=== PATIENT | female | born 1995 | race Caucasian/White ===

== ENCOUNTER 2019-06-27 06:20 | Emergency (ER) | payer OTHER, SELFPAY ==
[2019-06-27 06:22] VITALS: BP 126/54; PULSE 74; RESP 16; TEMP 37; O2SAT 100; BMI 22.6
--- NOTE | 2019-06-27 06:38 | ED.DCSUM_ITS ---
History of Present Illness Chief Complaint: Dental Informant: Patient Onset: Weeks - 1 Context: Gradual Onset Timing: Continuous Quality: ache Location: left maxillary Current Severity: Moderate Maximum Severity: Moderate Worsened by: eating Relieved by: - - tylenol, partially Associated Symptoms: - - No fevers or swelling. Narrative: Patient currently in early first trimester . She is having no nausea, vomiting, abdominal pain, or urinary symptoms but states about a week ago, a tooth fell apart while eating, and now is hurting her worse. Past Medical History - Allergies and Home Meds Allergies/Adverse Reactions: Allergies No Known Allergies Allergy (Verified 08/09/16 22:52) Primary Care Physician: Care Physician,No Primary [Primary Care Provider] - Past Medical History: None Lives: With Family Smoking Status: Never smoker Review of Systems General: Denies: Chills, Fever, Sweats ENT: Reports: - - Dental pain. Denies: Rhinorrhea, Sore throat Respiratory: Denies: Dyspnea, Cough Gastrointestinal: Denies: Abdominal pain, Nausea, Vomiting Physical Exam Vital Signs/Narrative: Vital Signs Temp Pulse Resp BP Pulse Ox 06/27/19 06:22 98.6 F 74 16 126/54 H 100 Inital Vital Signs reviewed: Yes General: Well nourished, Well developed, - - Well-appearing, NAD Head: Normocephalic, Atraumatic ENT: Moist mucous membranes, No rhinorrhea Mouth/Throat: Normal oral mucosa, No focal abscess, Normal posterior oropharynx, No sublingual edema, Focal dental decay - 13, Tenderness on tooth percussion - 13.. Negative for: Dental abscess, Trismus Neck: Supple, No lymphadenopathy, Nontender Respiratory: No distress Skin: Normal color, No rash Neurological: Alert, Oriented x3, Cranial nerves II-XII grossly intact, Normal Strength, Normal Sensation, Normal Gait Psychological: Normal affect, Normal Mood Diagnostic/Tx/Re-eval - Medical Decision Making Dental Procedures: Cavet temporary sealant placed - After topical benzocaine 20% There is focal decay that is likely into the dentin, unsure if there is pulp exposed as there is no blood/bleeding. The majority of the tooth is intact. The rest of the teeth look good. Placed temporary filling in the area for her. She declined Tylenol after that, which is what I recommend given that she is . She is given a dental clinic referral which they also requested, and a prescription for penicillin since she is tender up above the affected tooth although I do not feel a palpable abscess. This should prevent dental infection if there is one, from becoming worse. ED Disposition - Plan for ED Patient: Disposition: Home or Assisted Living Diagnosis: Dental decay, Odontalgia Instructions: Dental Pain Prescriptions: Amoxicillin 875 mg PO BID #20 tab Transmission Status: Pending to [id number] Referrals: Dentist,Your [STAFF PHYSICIAN] - (see dental clinics list)
--- NOTE | 2019-06-27 10:01 | ED.RN ---
Pt returned call to inquire about consent for tooth extraction to dentist due to pt being . Dr Valiente verbalized extraction should not be a problem. Pt will return call if extraction is necessary.
--- NOTE | 2019-06-27 12:16 | ED.RN ---
[facility] [place] [facility] permission to for dentist to treat pt due to . Addendum was added to chart stating no restrictions are necessary for treatment and giving permission for exam, x-ray, extraction as deemed necessary by dentist. Dr Redmond signed addendum. Note was added to fax sheet advising pt was offered Tylenol for pain due to .
== END 2019-06-27 07:02 | disposition home or self-care (01) ==
PROVIDERS: Emergency Provider Emergency Medicine
DX: O99.611 Diseases of the digestive system complicating pregnancy, first trimester (principal); K08.89 Other specified disorders of teeth and supporting structures; K02.9 Dental caries, unspecified; S02.5XXA Fracture of tooth (traumatic), initial encounter for closed fracture; X58.XXXA Exposure to other specified factors, initial encounter; Y93.9 Activity, unspecified; Y92.9 Unspecified place or not applicable; Z3A.00 Weeks of gestation of pregnancy not specified
CPT/HCPCS: 99282

== ENCOUNTER → 2019-07-17 17:31 | Outpatient (CLI) | payer OTHER, SELFPAY ==
[2019-06-27 06:22] VITALS: BMI 22.6
== END ==
PROVIDERS: Visit Provider Obstetrics & Gynecology
DX: Z12.4 Encounter for screening for malignant neoplasm of cervix (principal); Z11.3 Encounter for screening for infections with a predominantly sexual mode of transmission

== ENCOUNTER → 2019-07-24 15:07 | Outpatient (CLI) | payer OTHER, SELFPAY ==
[2019-06-27 06:22] VITALS: BMI 22.6
[2019-07-24 15:45] LABS: Absolute Lymphocyte Count 1.57 X10^3/uL (0.83-4.51); Absolute Neutrophil Count 4.9 X10^3/uL (2.0-7.7); Basophil# 0.02 X10^3/uL; Basophil% 0.3 % (0-1); Eosinophil# 0.04 X10^3/uL; Eosinophils% 0.6 % (0-5); Hematocrit 37.5 % (37-47); Hemoglobin 12.3 g/dL (12.0-15.0); Lymphocyte # 1.57 X10^3/ul (4.0); Lymphocyte % 22.8 % (19-41); Mean Corp Hgb Conc 32.8 g/dL (32-36); Mean Corpuscular Volume 85.2 fL (81-99); Mean Platelet Vol. 9.2 fl (6.2-12.0); Monocyte# 0.33 X10^3/uL; Monocyte% 4.8 % (0-10); NRBC Flagged by Analyzer 0 % (0-5); Neutrophil % 71.1 % (47-70); Platelet Count 239 K/mm3 (150-450); RBC Distribution Width CV 13.1 % (11.6-14.6); RBC Distribution Width SD 40.6 fl (35.1-43.9); White Blood Count 6.9 K/mm3 (4.4-11.0)
[2019-07-24 15:50] LABS: Color, Urine Yellow (Yellow); Glucose, Dipstick Normal (Normal); Ketone-Dipstick 5 mg/dl (Negative); Leukocyte Esterase-Dipstick Negative /ul (Negative); Nitrite-Dipstick Negative (Negative); Occult Blood-Urine Negative /ul (Negative); Protein-Dipstick Negative (Negative); Specific Gravity, Urine 1.015 (1.002-1.030); Urine Bilirubin Dipstick Negative (Negative); Urine Clarity Clear (Clear); Urine Urobilinogen Normal (Normal); Urine pH 6.5 (5.0 - 8.0)
[2019-07-24 16:08] LABS: Amphetamine Urine VISTA NEGATIVE (<1000 ng/mL); Barbiturate Urine VISTA NEGATIVE (< 200 ng/mL); Benzodiazepine Urine VISTA NEGATIVE (< 200 ng/mL); Cocaine Urine VISTA NEGATIVE (< 300 ng/mL); Ecstacy Urine VISTA NEGATIVE (< 500 ng/mL); Methadone Urine VISTA NEGATIVE (< 300 ng/mL); PCP Urine VISTA NEGATIVE (< 25 ng/mL); THC Urine VISTA NEGATIVE (< 50 ng/mL); Vista UDS pH Range 6
[2019-07-24 16:31] LABS: Thyroid Stim Hormone (TSH) 1.34 uIU/mL (0.358-3.74)
[2019-07-27 11:34] LABS: HIV - WCH Non-Reactive (Nonreactive); Hepatitis B Surface Antigen Non-Reactive (Nonreactive); Hepatitis C Antibody Non-Reactive (Nonreactive); Rubella IgG 207.4 IU/mL; Vitamin D,25 Hydroxy 19.3 ng/mL (29.95-100.01)
[2019-07-30 03:15] LABS: Prenatal RPR NONREACTIVE (NONREACTIVE)
== END ==
PROVIDERS: Obstetrics & Gynecology; Visit Provider Advanced Practice Midwife
DX: Z34.81 Encounter for supervision of other normal pregnancy, first trimester (principal)
CPT/HCPCS: 36415; 80307; 81002; 82306; 84443; 85025; 86703; 86762; 86803; 87340

== ENCOUNTER → 2019-12-04 14:51 | Outpatient (CLI) | payer OTHER, SELFPAY ==
[2019-12-04 17:25] LABS: Hematocrit 29.8 % (37-47); Hemoglobin 9.7 g/dL (12.0-15.0); Mean Corp Hgb Conc 32.6 g/dL (32-36); Mean Corpuscular Volume 89.2 fL (81-99); Mean Platelet Vol. 10.7 fl (6.2-12.0); Platelet Count 216 K/mm3 (150-450); RBC Distribution Width CV 12.4 % (11.6-14.6); RBC Distribution Width SD 40.7 fl (35.1-43.9); Red Blood Count 3.34 M/mm3 (4.2-5.4); White Blood Count 5.8 K/mm3 (4.4-11.0)
[2019-12-04 17:32] LABS: Glucose Challenge Gest 1H 50g 171 mg/dL (70-140)
[2019-12-04 17:39] LABS: Vitamin D,25 Hydroxy 20.9 ng/mL
== END ==
PROVIDERS: Visit Provider Obstetrics & Gynecology
DX: O26.893 Other specified pregnancy related conditions, third trimester (principal); E55.9 Vitamin D deficiency, unspecified; Z3A.00 Weeks of gestation of pregnancy not specified
CPT/HCPCS: 36415; 82306; 82950; 85027

== ENCOUNTER → 2019-12-24 06:54 | Outpatient (CLI) | payer OTHER, SELFPAY ==
[2019-12-24 07:50] LABS: Glucose GTT-Gestation. Fasting 82 mg/dL (<105)
[2019-12-24 08:38] LABS: Glucose GTT-Gestational 1 Hr 145 mg/dL (<190)
[2019-12-24 10:11] LABS: Glucose GTT-Gestational 2 Hr 102 mg/dL (<165)
[2019-12-24 11:19] LABS: Glucose GTT-Gestational 3 Hr 89 L (<145)
== END ==
PROVIDERS: Referring Provider Obstetrics & Gynecology; Visit Provider Obstetrics & Gynecology
DX: R73.09 Other abnormal glucose (principal)
CPT/HCPCS: 36415; 82951; 82952

== ENCOUNTER → 2020-01-27 10:31 | Outpatient (CLI) | payer OTHER, SELFPAY | PROVIDERS: Visit Provider Obstetrics & Gynecology | DX: Z36.85 Encounter for antenatal screening for Streptococcus B (principal) | CPT/HCPCS: 87081 ==

== ENCOUNTER 2020-02-15 03:40 | Inpatient (IN) | payer OTHER, SELFPAY ==
[2020-02-15] VITALS (17 sets, daily range): BP systolic 98–132; BP diastolic 53–86; PULSE 56–96; RESP 16–17; TEMP 36.6–37.1; O2SAT 100; BMI 23.2
[2020-02-15] MEDS: Lactated Ringers 1,000 ML 999 ML IV (03:50)
[2020-02-15 04:12] LABS: Absolute Lymphocyte Count 3.22 X10^3/uL (0.83-4.51); Absolute Neutrophil Count 3.6 X10^3/uL (2.0-7.7); Basophil# 0.03 X10^3/uL; Basophil% 0.4 % (0-1); Eosinophil# 0.01 X10^3/uL; Eosinophils% 0.1 % (0-5); Hematocrit 34.6 % (37-47); Hemoglobin 11.2 g/dL (12.0-15.0); Lymphocyte # 3.22 X10^3/ul (4.0); Lymphocyte % 44.1 % (19-41); Mean Corp Hgb Conc 32.4 g/dL (32-36); Mean Corpuscular Hgb 27.5 pg (27.0-32.0); Mean Corpuscular Volume 84.8 fL (81-99); Mean Platelet Vol. 11.8 fl (6.2-12.0); Monocyte# 0.43 X10^3/uL; Monocyte% 5.9 % (0-10); NRBC Flagged by Analyzer 0 % (0-5); Neutrophil # 3.58 X10^3/uL (2.7-7.7); Neutrophil % 49.1 % (47-70); Platelet Count 220 K/mm3 (150-450); RBC Distribution Width CV 12.7 % (11.6-14.6); RBC Distribution Width SD 38.5 fl (35.1-43.9); Red Blood Count 4.08 M/mm3 (4.2-5.4); White Blood Count 7.3 K/mm3 (4.4-11.0)
[2020-02-15] MEDS: Oxytocin 30 units/NS 500 ml 30 UNITS/500 ML IV.SOLN 334 UNITS IV (04:41)
[2020-02-15] MEDS: Methylergonovine 0.2 MG/ML Ampul IM (04:45)
--- NOTE | 2020-02-15 05:02 | HP.PCM_ITS ---
- Problem List (1) 39 weeks gestation of Status: Acute History Date of Admission: 02/15/20 Final ANNE MARIE: 02/22/20 Final ANNE MARIE Source: US <20 weeks Gestational age: 39 Weeks and 0 Days History of this : This is a 24 year-old, G [2], P [1], at 39 weeks gestational age. Allergies No Known Allergies Allergy (Verified 02/15/20 03:57) Home Medications: Home Medications Vits [Prenatabs FA] 1 tablet PO DAILY 08/09/16 Smoking Status: Never smoker Number of Fetus(es): 1 NST - FHR Rate Baby A Baseline: 130 Variability:: Moderate Accelerations:: 15 x 15 Decelerations:: None NST Reactive:: Yes FHR Category:: Category I Uterine Activity:: 2-5m History Past Pregnancies: PRIOR DELIVERY HISTORY DEL DATE GEST LAB WT LB WT OZ TYPE ANES LABOR TX 10 Aug 17 38 16 6 7 Vacuu Epidural No Labs: Labs Mom's Problem List Problem Status Onset Code 39 weeks gestation of Acute Z3A.39 Mom's Labs & Results 02/15/20 02/15/20 03:50 03:50 WBC 7.3 RBC 4.08 L Hgb 11.2 L Hct 34.6 L MCV 84.8 MCH 27.5 MCHC 32.4 RDW Std Deviation 38.5 RDW Coeff of Jose G 12.7 Plt Count 220 MPV 11.8 Immature Gran % (Auto) 0.400 Neut % (Auto) 49.1 Lymph % (Auto) 44.1 H [place] % (Auto) 5.9 Eos % (Auto) 0.1 Baso % (Auto) 0.4 Absolute Neuts (auto) 3.6 Absolute Lymphs (auto) 3.22 Nucleated RBC % 0 Blood Type O POSITIVE Antibody Screen NEGATIVE Course Did the patient receive Yes care? Labs Blood Type: O RH: POSITIVE RPR/VDRL/Syphilis Nonreactive Rubella status Immune HbSAg Negative Date Done: 07/24/19 Chlamydia Negative Gonorrhea Negative HIV/AIDS Non-Reactive Group B Strep: Negative Current Obstetrical History Gestational Diabetes No Incompetent Cervix No Infertility No IUGR No Macrosomia No Hypertension/Pre-eclampsia No Placenta Previa/Abruption No PTL/PROM No Uterine anomaly No Oligohydramnios No Polyhydramnios No Multiple gestation No Past Medical History Asthma No Diabetes No Hypertension No Heart disease No Mitral valve prolapse No Neurologic/Seizure disorder/ No Migraines Kidney disease No Liver disease No Varicosities No Clotting disorders/Hx of DVT No Thyroid Dysfunction No Other medical diseases No Psychiatric disorders No Major trauma No Abnormal PAP smear No Sleep apnea No Mammogram in the last 2 years No Social History Marital Status: SINGLE Alleged father Beau Greco Hx Smoking No Smoking Status Never smoker Expected Infant Delivery Method: Spontaneous Vaginal Number of Visits: 12 Review of Systems Constitutional: Denies: Chills, Fever, Weight Change HEENT: Denies: Head Aches, Sinus Congestion, Sinus Drainage Cardiovascular: Denies: Chest Pain, Palpitations Respiratory: Denies: Cough, Shortness of breath at rest, Sputum production Gastrointestinal: Denies: Abdominal Pain, Nausea, Vomiting Genitourinary: Denies: Dysuria Musculoskeletal: Denies: Joint Pain, Joint Tenderness Skin: Denies: Rash, Wounds Neurological: Denies: Numbness, Tingling, Focal weakness Psychiatric: Denies: Anxiety, Depression, Homicidal Ideations, Suicidal Ideations Hematologic/ Lymphatic: Denies: Easy Bruising, Easy Bleeding Physical Exam Vitals: Vital Signs Temp Pulse BP Pulse Ox 98.3 F 76 106/75 100 02/15/20 04:59 02/15/20 05:00 02/15/20 04:59 02/15/20 05:00 General: Alert, Oriented x3, No apparent distress HEENT: Atraumatic, Normocephalic. Negative for: Thyromegaly, Lymphadenopathy Cardiovascular: Regular rate, Regular Rhythm Lungs: Clear to auscultation Abdomen: Bowel Sounds Present, Gravid Neurological: Deep Tendon Reflexes 2+/4 and Symmetrical, Neuro grossly intact PALM GATHERER: Normal external genitalia. Negative for: Vulvar lesions Estimated gestational size: Appropriate for gestational size Presentation: Cephalic Cervix Dilation (cm): 8 Station: -2 Effacement (%): 90 Assessment/Plan All Active Problems 39 weeks gestation of (Acute) 38 weeks gestation of (Acute) Oligohydramnios (Acute) A/P: This is a 24 year-old, G [2], P [1], at 39 weeks gestational age. SROM this AM around 0300, reports clear UC Q2-5m NST Category I SVE /-2 with urge to push Admit in active labor
--- NOTE | 2020-02-15 05:08 | PCM.OPRPT ---
Problem List (1) 39 weeks gestation of Status: Acute Vaginal Delivery Maternal Presentation: Active Labor Amniotic Membrane Rupture Type: Spontaneous at home Amniotic Fluid Description: Clear Final ANNE MARIE: 02/22/20 Final ANNE MARIE Source: US <20 weeks Gestational age: 39 Weeks and 0 Days Date of Procedure: 02/15/20 Pre-Operative Diagnosis: Labor Post-Operative Diagnosis: S/P Surgery/ Procedure Performed: Spontaneous Vaginal Delivery Type of Anesthesia: None Description of Procedure: Patient was FD at +3 station with spontaneous urge to push. She pushed to deliver head in direct OP followed spontaneously by body. The male infant was placed on the maternal abdomen and further attended to by nursery personnel. The cord was doubly clamped and cut by FOB under CNM supervision at approximately 4 minutes of life. Left labial skid plaza noted as well as a mild perineal skid hetal, good hemostasis noted and no repairs needed. With gentle traction the placenta delivered. IV Pitocin started per protocol. With a continual trickle of blood, manual expression of placental fragments and clots removed from uterine cavity. IM Methergine given in the left thigh. Placenta appears to have a three vessel cord. Apgars 9/10. EBL 400. Sponge and needle counts correct x 2. Precipitous delivery. Attending MD: Dr. Sarah Plummer Presentation: ROP - direct OP Placental Delivery Description: Spontaneous, Manual Removal Placenta Disposition: [facility] Cord Vessel Description: 3 Vessels Cord Entanglement: - - around shoulders/body Estimated Blood Loss: 400 A gender: Male (1 minute): 9 (5 minute): 10 Episiotomy Description: None Laceration: None Medications given after delivery: IV Pitocin, IM Methergin
--- NOTE | 2020-02-15 05:14 | DCINST_ITS ---
Discharge Diet: No Restrictions Discharge Activity: Return to Normal Activity, May not drive while taking narcotic pain medications., May Shower May resume sexual activity in: 4-6 weeks Additional Activity Instructions:: Nothing in the vagina for 4-6 weeks. You may return to work/school in 6 weeks. Call your doctor if your incision/area has: Continuous Slow Oozing, Sudden Increased Bleeding, Increased Pain/ Swelling, Increased Redness, Foul Smelling Discharge Additional Instructions: If you experience any of the following, contact your healthcare provider. * Bleeding that soaks a pad every hour for 2 hours * Fever 100.4 or higher * Unrelieved incision or abdominal pain * Swelling, redness, discharge or bleeding from your incision or episiotomy site * Your incision begins to separate * Problems urinating (including inability to urinate or burning while urinating). * Visual changes * Severe headache * Flu-like symptoms * Pain or redness in one of both of your breasts * Pain, warmth, tenderness or swelling in your legs, especially the calf area * Frequent nausea and vomiting * Symptoms of depression or anxiety If you experience any of the following, call 911 or go to the nearest Emergency Room. * Chest pain * Problems breathing * Seizure activity * Partial or complete paralysis of a body part, slurred speech, weakness or drooping of the face, or a sudden inability to walk or hold your balance Allergies/Adverse Reactions: Allergies No Known Allergies Allergy (Verified 02/15/20 03:57) Medications to take at Discharge Vits [Prenatabs FA] 1 tablet PO DAILY 08/09/16 Please Follow Up With: Mago Ignacio MD When: Call to make an appointment with your doctor in 6 weeks. Primary Care Physician: Care Physician,No Primary [Primary Care Provider] - Test Results: Test results from this visit will be discussed in further detail at your follow- up appointment, if applicable.
--- NOTE | 2020-02-15 05:14 | PCM.DCVAG ---
Discharge Diet: No Restrictions Discharge Activity: Return to Normal Activity, May not drive while taking narcotic pain medications., May Shower May resume sexual activity in: 4-6 weeks Additional Activity Instructions:: Nothing in the vagina for 4-6 weeks. You may return to work/school in 6 weeks. Call your doctor if your incision/area has: Continuous Slow Oozing, Sudden Increased Bleeding, Increased Pain/ Swelling, Increased Redness, Foul Smelling Discharge Additional Instructions: If you experience any of the following, contact your healthcare provider. Bleeding that soaks a pad every hour for 2 hours Fever 100.4 or higher Unrelieved incision or abdominal pain Swelling, redness, discharge or bleeding from your incision or episiotomy site Your incision begins to separate Problems urinating (including inability to urinate or burning while urinating). Visual changes Severe headache Flu-like symptoms Pain or redness in one of both of your breasts Pain, warmth, tenderness or swelling in your legs, especially the calf area Frequent nausea and vomiting Symptoms of depression or anxiety If you experience any of the following, call 911 or go to the nearest Emergency Room. Chest pain Problems breathing Seizure activity Partial or complete paralysis of a body part, slurred speech, weakness or drooping of the face, or a sudden inability to walk or hold your balance Allergies/Adverse Reactions: Allergies No Known Allergies Allergy (Verified 02/15/20 03:57) Medications to take at Discharge Vits [Prenatabs FA] 1 tablet PO DAILY 08/09/16 Please Follow Up With: Mago Ignacio MD When: Call to make an appointment with your doctor in 6 weeks. Primary Care Physician: Care Physician,No Primary [Primary Care Provider] - Test Results: Test results from this visit will be discussed in further detail at your follow-up appointment, if applicable.
[2020-02-15] MEDS: oxyCODONE 5 MG Tablet PO ×3 (05:20→22:15)
[2020-02-15] MEDS: Ibuprofen 600 MG Tablet PO (18:08)
[2020-02-16] VITALS (7 sets, daily range): BP systolic 92–117; BP diastolic 60–78; PULSE 54–69; RESP 17–18; TEMP 36.2–36.8
[2020-02-16] MEDS: Ibuprofen 600 MG Tablet PO ×2 (00:31→06:13)
--- NOTE | 2020-02-16 07:04 | PCM.PN.OB ---
<Flora Dougherty - Last Filed: 02/16/20 08:34> Patient Problems: Active and Suspected Problems 39 weeks gestation of (Acute) Subjective: States feeling much better today. Denies pain or heavy bleeding. Bottom is a little sore, but doing well. well with male having a good latch. Has been ambulating in her room, tolerating a regular diet, urinating without difficulty and passing flatus. Would like to discharge home today after circumcision. Objective: VSS. Fundus is firm, midline, u/2. Lochia rubra moderate. - Physical Exam Vitals/I&O's: Vital Signs Temp Pulse Resp BP Pulse Ox 97.7 F L 54 L 17 96/69 100 02/16/20 04:30 02/16/20 04:30 02/16/20 04:30 02/16/20 04:30 02/15/20 05:00 Oxygen Delivery Method Room Air Weight: 55.792 kg Body Mass Index (BMI) 23.2 Intake and Output for Last 24 Hours 02/14/20 02/15/20 02/16/20 23:59 23:59 23:59 Intake Total 916.25 / 916.25 Output Total 700 / 700 Balance 216.25 / 216.25 General: Alert, Oriented x3, Cooperative HEENT: Atraumatic, PERRLA, EOMI, Normocephalic Neck: Supple, No JVD, Negative Carotid Bruits Lungs: Clear to auscultation, Normal air movement Cardiovascular: Regular rate, No murmurs Abdomen: Bowel Sounds Present, Soft, Non Tender Extremities: No edema, Capillary Refill Less than 3 Seconds Skin: No rashes, No breakdown Musculoskeletal: No Tenderness to Palpation of Joints or Extremities Neurological: Cranial nerves II-XII grossly intact Psych/Mental Status: Normal Affect, Appropriate Current Medications Acetaminophen (Tylenol) 1,000 mg PO Q8H PRN PRN PRN Reason: Pain Score 1-3/10 Bisacodyl (Dulcolax) 10 mg RECTAL UD PRN PRN Reason: If no BM Dibucaine (Dibucaine) 1 applic TOPICAL TID PRN PRN; Protocol PRN Reason: Discomfort Hydrocortisone (Hytone) 1 applic TOPICAL TID PRN PRN; Protocol PRN Reason: Discomfort Ibuprofen (Motrin) 600 mg PO Q6H PRN PRN PRN Reason: Pain Score 1-3/10 Last Admin: 02/16/20 06:13 Dose: 600 mg Documented by: Methylergonovine Maleate (Methergine) 0.2 mg IM X1 PRN PRN Reason: Excess bleeding/uterine atony Last Admin: 02/15/20 04:45 Dose: 0.2 mg Documented by: Ondansetron HCl (Zofran) 4 mg IV Q4H PRN PRN PRN Reason: Nausea Oxycodone HCl (Oxyir) 5 - 10 mg PO Q4H PRN PRN PRN Reason: Pain Score 4-10/10 Last Admin: 02/15/20 22:15 Dose: 5 mg Documented by: Senna/Docusate Sodium (Senokot-S, Carly-Colace) 1 - 2 tablet PO DAILY PRN PRN PRN Reason: Constipation Simethicone (Mylicon) 80 mg PO PCHS PRN PRN Reason: Indigestion/Stomach pain Sodium Chloride () 5 - 15 ml IV UD PRN PRN Reason: SALINE FLUSH Medical Necessity - Tobacco Use Smoking Status: Never smoker Assessment/Plan All Active Problems 39 weeks gestation of (Acute) 38 weeks gestation of (Acute) Oligohydramnios (Acute) A/P: S/P Day #1 mother Normal involution and lochia Dyad stable To follow up at [address] Urena Educated on signs of PPD and when to call To discharge home today <Kelsy Berg - Last Filed: 02/16/20 14:18> - Physical Exam Vitals/I&O's: Vital Signs Temp Pulse Resp BP Pulse Ox 97.9 F 69 18 92/60 100 02/16/20 09:43 02/16/20 09:43 02/16/20 09:43 02/16/20 09:43 02/15/20 05:00 Oxygen Delivery Method Room Air Weight: 55.792 kg Body Mass Index (BMI) 23.2 Intake and Output for Last 24 Hours 02/14/20 02/15/20 02/16/20 23:59 23:59 23:59 Intake Total 916.25 / 916.25 Output Total 700 / 700 Balance 216.25 / 216.25 Current Medications Acetaminophen (Tylenol) 1,000 mg PO Q8H PRN PRN PRN Reason: Pain Score 1-3/10 Bisacodyl (Dulcolax) 10 mg RECTAL UD PRN PRN Reason: If no BM Dibucaine (Dibucaine) 1 applic TOPICAL TID PRN PRN; Protocol PRN Reason: Discomfort Hydrocortisone (Hytone) 1 applic TOPICAL TID PRN PRN; Protocol PRN Reason: Discomfort Ibuprofen (Motrin) 600 mg PO Q6H PRN PRN PRN Reason: Pain Score 1-3/10 Last Admin: 02/16/20 06:13 Dose: 600 mg Documented by: Methylergonovine Maleate (Methergine) 0.2 mg IM X1 PRN PRN Reason: Excess bleeding/uterine atony Last Admin: 02/15/20 04:45 Dose: 0.2 mg Documented by: Ondansetron HCl (Zofran) 4 mg IV Q4H PRN PRN PRN Reason: Nausea Oxycodone HCl (Oxyir) 5 - 10 mg PO Q4H PRN PRN PRN Reason: Pain Score 4-10/10 Last Admin: 02/15/20 22:15 Dose: 5 mg Documented by: Senna/Docusate Sodium (Senokot-S, Carly-Colace) 1 - 2 tablet PO DAILY PRN PRN PRN Reason: Constipation Simethicone (Mylicon) 80 mg PO PCHS PRN PRN Reason: Indigestion/Stomach pain Sodium Chloride () 5 - 15 ml IV UD PRN PRN Reason: SALINE FLUSH Assessment/Plan PPD#1 s/p . Desires homegoing, stable. Follow up 6w.
== END 2020-02-16 14:45 | disposition home or self-care (01) | DRG 806 ==
PROVIDERS: Admitting Provider Obstetrics & Gynecology; Visit Provider Obstetrics & Gynecology
DX: O62.3 Precipitate labor (principal); O41.03X0 Oligohydramnios, third trimester, not applicable or unspecified; Z37.0 Single live birth; Z3A.39 39 weeks gestation of pregnancy
CPT/HCPCS: 59025; 59050; 85025; 86850; 86900; 86901; 99218; J7120; G0378

== ENCOUNTER 2021-06-13 16:50 | Emergency (ER) | payer OTHER, SELFPAY ==
[2021-06-13 16:51] VITALS: BP 137/94; PULSE 65; RESP 18; TEMP 36.3; O2SAT 100; BMI 19.5
--- NOTE | 2021-06-13 16:57 | ED.RN ---
PT REPORTS HE DOES NOT WANT TO WAIT TO BE SEEN AND THAT HE WILL GO SOMEWHERE ELSE.
[2021-06-13 17:06] LABS: Mucous, Urine 0 SEEN /hpf (<or=2+)
[2021-06-13 17:26] LABS: Color, Urine Yellow (Yellow); Glucose, Dipstick Normal (Normal); Ketone-Dipstick 50 mg/dl (Negative); Leukocyte Esterase-Dipstick Negative /ul (Negative); Nitrite-Dipstick Negative (Negative); Occult Blood-Urine 250 /ul (Negative); Protein-Dipstick 15 mg/dl (Negative); Specific Gravity, Urine 1.025 (1.002-1.030); Urine Bilirubin Dipstick Negative (Negative); Urine Clarity Clear (Clear); Urine Urobilinogen 4 mg/dl (Normal)
[2021-06-13 17:39] LABS: Bacteria 1+ /hpf (None Seen); Red Blood Cells-Urine 0-5 SEEN /hpf (0-5); Squamous Epithelial Cells - UA 0-5 SEEN /hpf (5-10); White Blood Cells 0-5 SEEN /hpf (0-5)
[2021-06-13 17:58] LABS: Anion Gap 8 (5-15); BUN 11 mg/dL (7-18); BUN/Creat Ratio 13.3 RATIO (10-20); Calcium,Total 8.9 mg/dL (8.5-10.1); Chloride 105 mmol/L (98-107); Creatinine, Serum 0.83 mg/dL (0.55-1.02); EST Glomerular Filtration Rate 90 mL/min (>60); Est Glom Filt Rate - Afr Amer 109 mL/min (>60); Estimated Creatinine Clearance 77.38 ml/min; Glucose 76 mg/dL (74-106); Potassium 3.4 mmol/L (3.5-5.1); Sodium Level 139 mmol/L (136-145)
[2021-06-13 18:15] LABS: Absolute Lymphocyte Count 1.18 X10^3/uL (0.83-4.51); Absolute Neutrophil Count 1.6 X10^3/uL (2.0-7.7); Basophil# 0.01 X10^3/uL; Basophil% 0.4 % (0-1); Hematocrit 40.9 % (37-47); Lymphocyte # 1.18 X10^3/ul (0.83-4.51); Lymphocyte % 41.5 % (19-41); Mean Corp Hgb Conc 31.8 g/dL (32-36); Mean Corpuscular Hgb 27.4 pg (27.0-32.0); Mean Corpuscular Volume 86.3 fL (81-99); Mean Platelet Vol. 10.8 fl (6.2-12.0); Monocyte# 0.09 X10^3/uL; Monocyte% 3.2 % (0-10); NRBC Flagged by Analyzer 0 % (0-5); Neutrophil # 1.55 X10^3/uL (2.7-7.7); Neutrophil % 54.5 % (47-70); Platelet Count 177 K/mm3 (150-450); RBC Distribution Width CV 12.8 % (11.6-14.6); RBC Distribution Width SD 40.4 fl (35.1-43.9); Red Blood Count 4.74 M/mm3 (4.2-5.4); White Blood Count 2.8 K/mm3 (4.4-11.0)
[2021-06-13 18:21] LABS: Internal QC Validated? YES +Cl - CLEAR BKGD; Pregnancy, Serum, hCG Quali. NEGATIVE Negative
--- NOTE | 2021-06-13 20:40 | EDS_ITS ---
HPI HPI - GI History of Present Illness Chief Complaint: Abd Pain Detail of Chief Complaint: Abdominal pain, nausea, diarrhea and abnormal vaginal bleeding Informant: patient and spouse/S.O. Abdominal Pain/Flank Pain Onset: Days Context: Sudden Onset Timing: Intermittent Quality: Cramping Location: Diffuse Current Severity: Mild Maximum Severity: Moderate Worsened by: Nothing Relieved by: Nothing Nausea/Vomiting/Emesis GI Symptom: Positive for Nausea; Negative for Vomiting Diarrhea/Melena/Hematochezia GI Symptom: Positive for Diarrhea; Negative for Melena and Hematochezia Onset: Days Associated Symptoms LMP: Abnormal bleeding for greater than a month Narrative Narrative: Patient is a 26-year-old AB female who presents with nausea, diarrhea, abdominal pain and abnormal vaginal bleeding. She does not give any signs or symptoms of . She does report subjective fever. She denies headache. She states she has no appetite. She denies loss of taste or smell. Does have mild congestion and cough. Cough is nonproductive. She does report myalgias with subjective fever and chills. She also endorses the diarrhea. She has not noted any blood or mucus in the diarrhea. She denies dysuria, frequency, urgency or hematuria. She states she is had abnormal bleeding. She bleeds for a week then stops and bleeds again. She is used 2 pads today. She denies orthostatic symptoms. She is not on an anticoagulant. She denies bruising easily. Prior similar symptoms: No Recent Illness/Hospitalization: No PFSH PFSH Medical History Home Medications vit,[id number] [Prenatabs FA] 1 tab PO DAILY 08/09/16 [History Last Taken 08/09/16 05:00] Allergy/AdvReac Type Severity Reaction Status Date / Time No Known Allergies Allergy Verified 06/13/21 16:51 Social History (Updated 06/13/21 @ 20:[address] Jl Redmond MD) household members: spouse and children Smoking Status: Never smoker substance use type: does not use ROS ROS ED Constitutional Constitutional ED: Reports chills, fever(s) and subjective; Denies sweats or weight loss ENT ENT ED: Reports ear pain and rhinorrhea; Denies sore throat Cardiovascular Cardiovascular: Denies chest pain, orthopnea, palpitations or racing heartbeat Respiratory/Chest Respiratory/Chest: Reports cough; Denies dyspnea, dyspnea on exertion, orthopnea or sputum Gastrointestinal Gastrointestinal: Reports abdominal pain, diarrhea and nausea; Denies constipation, melena or vomiting Genitourinary Genitourinary ED: Denies dysuria, hematuria or urinary frequency Musculoskeletal Musculoskeletal: Reports myalgias; Denies arthralgias, back pain or neck pain Integumentary Denies abscess, Abrasions or rash Neurologic Neurologic: Reports weakness; Denies headache(s) or paresthesias Psychiatric Psychiatric: Denies anxiety or depression Endocrine Endocrinology: Denies polydipsia, polyphagia or polyuria Hematologic/Lymphatic Hematologic/Lymphatic: Denies easy bleeding or easy bruising EXAM Physical Exam Const Vital Signs: 06/13/21 16:51 Temperature 97.4 F L Temperature Source Temporal Pulse Rate 65 Respiratory Rate 18 Blood Pressure 137/94 H Blood Pressure Mean 108 Pulse Ox 100 Oxygen Delivery Method Room Air Positive well nourished and well developed General Appearance ED: well developed and NAD; Negative for pallor HEENT Reports dry mucous membranes normocephalic and atraumatic Mouth ED: Yes dry mucous membranes Mouth: dry mucous membranes Eyes PERRL and EOMs intact bilaterally General Eye ED: Negative for pale conjunctiva or scleral icterus Neck no lymphadenopathy, supple and no JVD Resp normal respiratory effort and clear to auscultation bilaterally Auscultation: Negative for rales, rhonchi or wheezes Cardio regular rate, regular rhythm, S1 normal heart sound, S2 normal heart sound and no murmurs GI non-tender, non-distended and no masses Auscultation: normoactive bowel sounds Palpation: soft Back/Spine no CVA tenderness Cervical Spine: Negative for cervical spine tenderness Thoracic Spine / Upper Back: Negative for thoracic spinal tenderness Lumbar Spine / Lower Back: Negative for lumbar spinal tenderness Extremity full ROM General Extremety ED: Negative for edema or tenderness General Extremity: Negative for edema Neuro CN's II-XII intact bilaterally Sensorium / Orientation: alert, oriented to person, oriented to place and oriented to time Motor Exam: strength 5/5 throughout Psych mental status grossly normal Skin no wounds General Skin Exam: Negative for jaundice or pallor Lesions: no lesions Rashes: no rashes MDM MDM MDM Narrative Medical decision making narrative: Nursing protocol was initiated. Parmjit laboratory results remarkable for neutropenia with mild cough congestion loss of appetite diarrhea this may represent Covid. Covid test was obtained. UA reveals 1+ bacteria with no pyuria. Leukoesterase was negative. Nitrite was negative. Basic metabolic panel is unremarkable. test was negative. Lab Data Attestation: I reviewed the patient's lab results. Lab results narrative: Covid test was positive. Labs: Laboratory Results - last 24 hr 06/13/21 06/13/21 06/13/21 17:00 17:30 17:30 WBC 2.8 L RBC 4.74 Hgb 13.0 Hct 40.9 MCV 86.3 MCH 27.4 MCHC 31.8 L RDW Std Deviation 40.4 RDW Coeff of Jose G 12.8 Plt Count 177 MPV 10.8 Immature Gran % (Auto) 0.400 Neut % (Auto) 54.5 Lymph % (Auto) 41.5 H [place] % (Auto) 3.2 Eos % (Auto) 0.0 Baso % (Auto) 0.4 Absolute Neuts (auto) 1.6 L Absolute Lymphs (auto) 1.18 Nucleated RBC % 0 Sodium 139 Potassium 3.4 L Chloride 105 Carbon Dioxide 26.0 Anion Gap 8 BUN 11 Creatinine 0.83 Estim Creat Clear Calc 77.38 Est GFR (MDRD) Af Amer 109 Est GFR (MDRD) Non-Af 90 BUN/Creatinine Ratio 13.3 Glucose 76 Calcium 8.9 Serum , Qual Urine Color Yellow Urine Clarity Clear Urine pH 6.0 Ur Specific [place] 1.025 Urine Protein 15 H Urine Glucose (UA) Normal Urine Ketones 50 H Urine Occult Blood 250 H Urine Nitrite Negative Urine Bilirubin Negative Urine Urobilinogen 4 H Ur Leukocyte Esterase Negative Urine RBC 0-5 SEEN Urine WBC 0-5 SEEN Ur Squamous Epith Cells 0-5 SEEN Urine Bacteria 1+ Urine Mucus 0 SEEN 06/13/21 17:30 WBC RBC Hgb Hct MCV MCH MCHC RDW Std Deviation RDW Coeff of Jose G Plt Count MPV Immature Gran % (Auto) Neut % (Auto) Lymph % (Auto) Pine % (Auto) Eos % (Auto) Baso % (Auto) Absolute Neuts (auto) Absolute Lymphs (auto) Nucleated RBC % Sodium Potassium Chloride Carbon Dioxide Anion Gap BUN Creatinine Estim Creat Clear Calc Est GFR (MDRD) Af Amer Est GFR (MDRD) Non-Af BUN/Creatinine Ratio Glucose Calcium Serum , Qual NEGATIVE Urine Color Urine Clarity Urine pH Ur Specific [place] Urine Protein Urine Glucose (UA) Urine Ketones Urine Occult Blood Urine Nitrite Urine Bilirubin Urine Urobilinogen Ur Leukocyte Esterase Urine RBC Urine WBC Ur Squamous Epith Cells Urine Bacteria Urine Mucus Discharge Plan Triage Chief Complaint: Abd Pain ED Provider: Jl Redmond Dx/Rx/DC Orders Clinical Impression: COVID-19 virus infection, Abnormal uterine and vaginal bleeding, unspecified, Diarrhea due to COVID-19, Dehydration, mild Instructions: Coronavirus Disease 2019 (COVID-19): Caring for Yourself or Others, ED Dysfunctional Uterine Bleeding Prescriptions: No Action vit,[id number] [Prenatabs FA] 1 TABLET tablet 1 tab PO DAILY RF: 0 Primary Care Provider: Cheryl Zendejas Referrals: Cheryl Zendejas PA [Primary Care Provider] - 10-14 Days if not better Disposition Disposition: Home, Self Care
[2021-06-13 22:54] VITALS: BP 116/74; PULSE 71; RESP 15; O2SAT 98
== END 2021-06-13 22:55 | disposition home or self-care (01) ==
PROVIDERS: Emergency Provider Emergency Medicine
DX: U07.1 COVID-19 (principal); E86.0 Dehydration; N93.9 Abnormal uterine and vaginal bleeding, unspecified
CPT/HCPCS: 80048; 81001; 84703; 85025; 87426; 99284; A4216

== ENCOUNTER 2025-05-30 00:40 | Inpatient (IN) | payer OTHER, SELFPAY ==
[2025-05-30] VITALS (48 sets, daily range): BP systolic 89–164; BP diastolic 52–97; PULSE 57–82; RESP 14–18; TEMP 35.8–36.9; O2SAT 79–100; BMI 23.6
--- OUTSIDE RECORDS SUMMARY | 2025-05-30 00:04 | XMS RPT_ITS | CCD ---
Author Organization [facility] Care Team Providers Care Film Historian Name Role Phone JAYCE BUCKNER DO Admitting Unavailable ESTRADA, TORI PAC Referring Unavailable ESTRADA, TORI PAC Consulting Unavailable JAYCE BUCKNER DO Attending Unavailable JAYCE BUCKNER DO Primary Care Unavailable PROVIDER, UNKNOWN Consulting Unavailable Tori Estrada PA-C Unavailable [phone] Radha Gomez MA Unavailable Unavailable Huong Turner LPN Unavailable Unavailable Yenifer RICKS, Bambi Mccormack Unavailable Unavaila ble Unavailable Unavailable Nasrin Edwards PA-C Unavailable Germania CROWDER, Caren Hernandez Unavailable Unavailab le Estrada, Tori Referring Unavailable Estrada, Tori Primary Care Unavailable Rolando Schreiber Attending Unavailable Unavailable Primary Care Provider Unavailkanu e TORI VEGA Attending Unavailable KIMBERLEE, TRAVIS Referring Unavailable YARELY BRADY Attending Unavailable SELF Referring Unavailable BRIAN, YARELY Referring Unavailable BRIAN, YARELY Referring Unavailable BRIAN, YARELY Attending Unavailable BRIAN, YARELY Referring Unavailable BRIAN, YARELY Attending Unavailable BRIAN, YARELY Referring Unavailable TORI VEGA Attending Unavailable SELF Referring Unavailable TRAVIS INMAN Attending Unavailable OPHELIA EPSTEIN Attending Unavail able SELF Referring Unavailable HAURY, TRAVIS Referring Unavailable HAURY, TRAVIS Referring Unavailable Medications Current Medications Medication Drug Class(es) Dates Sig (Normalized) Sig (Original) amoxicillin 875 mg oral tablet (2 sources) Penicillin-class Antibacterial Start: 10-12-2024 amoxicillin 875 mg tablet ; 1 (one) tablet BID for 7 days Quantity: 14 {Tablet} Refills: 0 Ordered: 12-Oct-2024 AMPARO Edwards Start: 12-Oct-2024 Comments: pt is newly Comment on above: pt is newly aspirin 81 mg delayed release oral tablet (7 sources) Platelet Aggregation Inhibitor, Nonsteroidal Anti-inflammatory Drug Start: 10-28-2024 take 1 tablet by mouth once daily aspirin, enteric coated (ECOTRIN LOW STRENGTH) 81 mg EC tablet Indications: Encounter for supervision of high risk in first trimester, antepartum (HCC) Take 1 tablet by mouth once daily. 90 tablet 3 10/28/2024 Active ferrous sulfate (7 sources) ferrous sulfate (IRON ORAL) Take by mouth. Active PNV no.95/ferrous fum/folic ac ( ORAL) (7 sources) PNV no.95/ferrou s fum/folic ac ( ORAL) Take by mouth. Active Completed/Discontinued Medications Medication Drug Class(es) Dates Sig (Normalized) Sig (Original) Ethinyl Estradiol / Norethindrone (3 sources) Estrogen Start: 03-20-2023 End: 10-12-202407/20 () 1 mg-20 mcg tablet ; 1 (one) Tablet daily for 0 days Quantity: 1 {Packet} Refills: 11 Ordered: 12-Oct-2024 AMPARO Edwards Start: 20-Mar-2023 End: 12-Oct-2024 Status: Inactive Start: 03-20-202307/20 ( ) 1 mg-20 mcg tablet ; 1 (one) Tablet daily for 0 days Quantity: 1 {Packet} Refills: 11 Ordered: 20-Mar-2023 AMPARO Estrada Start: 20-Mar-2023 Ethinyl Estradiol / norgestimate (4 sources) Progestin, Estrogen Start: 05-31-2021 End: 10-28-2024 SPRINTEC 0.25-35 mg-mcg per tablet 05/31/2021 10/28/2024 Discontinued Start: 05-31-2021 End: 03-07-2022 take 1 tablet by mouth once daily Sprintec 28 0.25-35 MG-MCG Oral Tablet ; 1 (one) Tablet daily for 0 days Quantity: 1 {Tablet} Refills: 11 Ordered: 07-Mar-2022 AMPARO Estrada Start: 31-May-2021 End: 07-Mar-2022 Status: Inactive fluconazole 150 mg oral tablet (3 sources) Azole Antifungal Start: 03-09-2022 End: 08-12-2023 fluconazole 150 mg tablet ; 1 (one) Tablet as directed for 0 days Quantity: 2 {Tablet} Refills: 0 Ordered: 12-Aug-[address] Start: 09-Mar-2022 End: 12-Aug-2023 Status: Inactive nitrofurantoin, macrocrystals 100 mg oral capsule (3 sources) Nitrofuran Antibacterial Start: Results Test Name Value Interpretation Reference Range Facil ity GLUCOSE GESTATIONAL, 1 HOURo n 03-24-2025 Glucose 1 Hr post Unsp challenge [Mass/Vol] 163 mg/dL Normal 74-179 [facility] Comment on above: Order Comment: Jeremy cabrera Type: BLOOD SPECIMEN Ordering Facility: [facility] Address: [address] [place] [address] Result Comment: [facility] Congress of Obstetricians and Gynecologists (Preeti/Ryne) guidelines state gestational diabetes mellitus is present when 2 or more of the plasma glucose concentrations meet or exceed the following levels: fastin mg/dl, 1 hr: 180 mg/dl, 2 hr: 155 mg/dl, and 3 hr: 140 mg/dl. Performed By: #### G TGST1 #### [facility] CLIA [id number] [address] [place] [address] STATES OF [facility] GLUCOSE GESTATIONAL, 2 HOURo n 03-24-2025 Glucose 2 Hr post Unsp challenge [Mass/Vol] 138 mg/dL Normal 74-154 [facility] Comment on above: Order Comment: Jeremy cabrera Type: BLOOD SPECIMEN Ordering Facility: [facility] Address: [address] [place] [address] Result Comment: [facility] Congress of Obstetricians and Gynecologists (Preeti/Ryne) guidelines state gestational diabetes mellitus is present when 2 or more of the plasma glucose concentrations meet or exceed the following levels: fastin mg/dl, 1 hr: 180 mg/dl, 2 hr: 155 mg/dl, and 3 hr: 140 mg/dl. Performed By: #### G TGST2 #### [facility] CLIA [id number] [address] [place] [address] [place] GLUCOSE GESTATIONAL, 3 HOURo n 03-24-2025 Glucose 3 Hr post Unsp challenge [Mass/Vol] 113 mg/dL Normal 74-139 [facility] Comment on above: Order Comment: Jeremy cabrera Type: BLOOD SPECIMEN Ordering Facility: [facility] Address: [address] [place] [address] Result Comment: [facility] Congress of Obstetricians and Gynecologists (Álvarez/Coustan) guidelines state gestational diabetes mellitus is present when 2 or more of the plasma glucose concentrations meet or exceed the following levels: fastin mg/dl, 1 hr: 180 mg/dl, 2 hr: 155 mg/dl, and 3 hr: 140 mg/dl. Performed By: #### 5 7021-8 #### [facility] [id number] [address] [place] [address] [place] GLUCOSE GESTATIONAL, FASTING on 03-24-2025 Glucose post fast [Mass/Vol] 68 mg/dL Low 74-94 [facility] Comment on above: Order Comment: Jeremy cabrera Type: BLOOD SPECIMEN Ordering Facility: [facility] Address: [address] [place] [address] Result Comment: [facility] Congress of Obstetricians and Gynecologists (Álvarez/Olvinan) guidelines state gestational diabetes mellitus is present when 2 or more of the plasma glucose concentrations meet or exceed the following levels: fastin mg/dl, 1 hr: 180 mg/dl, 2 hr: 155 mg/dl, and 3 hr: 140 mg/dl. Performed By: #### 5 7021-8 #### [facility] [id number] [address] [place] [address] [place] CBC W Auto Differential pane l (Bld)on 03-17-2025 Basophils (Bld) [#/Vol] 0.03 10*3/uL Normal <0.11 [facility] Comment on above: Order Comment: Jeremy cabrera Type: BLOOD SPECIMEN Ordering Facility: [facility] Address: [address] [place] [address] Performed By: #### 5 7021-8 #### [facility] CLIA [id number] [address] [place] [address] [place] Basophils/100 WBC (Bld) 0.4 % Normal [facility] Comment on above: Order Comment: Speci men Type: BLOOD SPECIMEN Ordering Facility: [facility] Address: [address] [place] [address] Performed By: #### 5 7021-8 #### [facility] CLIA [id number] [address] [place] [address] [place] Differential cell count method Nom (Bld) Auto Normal [facility] Comment on above: Order Comment: Speci men Type: BLOOD SPECIMEN Ordering Facility: [facility] Address: [address] [place] [address] Performed By: #### 5 7021-8 #### [facility] CLIA [id number] [address] [place] [address] [place] Eosinophils (Bld) [#/Vol] 0.04 10*3/uL Normal <0.46 [facility] Comment on above: Order Comment: Speci men Type: BLOOD SPECIMEN Ordering Facility: [facility] Address: [address] [place] [address] Performed By: #### 5 7021-8 #### [facility] CLIA [id number] [address] [place] [address] [place] Eosinophils/100 WBC (Bld) 0.5 % Normal [facility] Comment on above: Order Comment: Speci men Type: BLOOD SPECIMEN Ordering Facility: [facility] Address: [address] [place] [address] Performed By: #### 5 7021-8 #### [facility] CLIA [id number] [address] [place] [address] [place] Erythrocyte distribution width (RBC) [Ratio] 12.7 % Normal 11.5-15.0 [facility] Comment on above: Order Comment: Speci men Type: BLOOD SPECIMEN Ordering Facility: [facility] Address: [address] [place] [address] Performed By: #### 5 7021-8 #### [facility] CLIA [id number] [address] [place] [address] [place] Hematocrit (Bld) [Volume fraction] 32.6 % Low 36.0-46.0 [facility] Comment on above: Order Comment: Speci men Type: BLOOD SPECIMEN Ordering Facility: [facility] Address: [address] [place] [address] Performed By: #### 5 7021-8 #### [facility] CLIA [id number] [address] [place] [address] [place] Hemoglobin (Bld) [Mass/Vol] 11.0 g/dL Low 11.5-15.5 [facility] Comment on above: Order Comment: Speci men Type: BLOOD SPECIMEN Ordering Facility: [facility] Address: [address] [place] [address] Performed By: #### 5 7021-8 #### [facility] CLIA [id number] [address] [place] [address] [place] Immature granulocytes (Bld) [#/Vol] 0.04 10*3/uL Normal <0.10 [facility] Comment on above: Order Comment: Speci men Type: BLOOD SPECIMEN Ordering Facility: [facility] Address: [address] [place] [address] Performed By: #### 5 7021-8 #### [facility] CLIA [id number] [address] [place] [address] [place] Immature granulocytes/100 WBC (Bld) 0.5 % Normal [facility] Comment on above: Order Comment: Speci men Type: BLOOD SPECIMEN Ordering Facility: [facility] Address: [address] [place] [address] Performed By: #### 5 7021-8 #### [facility] CLIA [id number] [address] [place] [address] [place] Lymphocytes (Bld) [#/Vol] 1.52 10*3/uL Normal 1.00-4.00 [facility] Comment on above: Order Comment: Speci men Type: BLOOD SPECIMEN Ordering Facility: [facility] Address: [address] [place] [address] Performed By: #### 5 7021-8 #### [facility] CLIA [id number] [address] [place] [address] [place] Lymphocytes/100 WBC (Bld) 19.6 % Normal [facility] Comment on above: Order Comment: Speci men Type: BLOOD SPECIMEN Ordering Facility: [facility] Address: [address] [place] [address] Performed By: #### 5 7021-8 #### [facility] CLIA [id number] [address] [place] [address] [place] MCH (RBC) [Entitic mass] 29.4 pg Normal 26.0-34.0 [facility] Comment on above: Order Comment: Speci men Type: BLOOD SPECIMEN Ordering Facility: [facility] Address: [address] [place] [address] Performed By: #### 5 7021-8 #### [facility] CLIA [id number] [address] [place] [address] [place] MCHC (RBC) [Mass/Vol] 33.7 g/dL Normal 30.5-36.0 [facility] Comment on above: Order Comment: Speci men Type: BLOOD SPECIMEN Ordering Facility: [facility] Address: [address] [place] [address] Performed By: #### 5 7021-8 #### [facility] CLIA [id number] [address] [place] [address] [place] MCV (RBC) [Entitic vol] 87.2 fL Normal 80.0-100.0 [facility] Comment on above: Order Comment: Speci men Type: BLOOD SPECIMEN Ordering Facility: [facility] Address: [address] [place] [address] Performed By: #### 5 7021-8 #### [facility] CLIA [id number] [address] [place] [address] [place] Monocytes (Bld) [#/Vol] 0.26 10*3/uL Normal <0.87 [facility] Comment on above: Order Comment: Speci men Type: BLOOD SPECIMEN Ordering Facility: [facility] Address: [address] [place] [address] Performed By: #### 5 7021-8 #### [facility] [id number] [address] [place] [address] [place] Monocytes/100 WBC (Bld) 3.4 % Normal [facility] Comment on above: Order Comment: Speci men Type: BLOOD SPECIMEN Ordering Facility: [facility] Address: [address] [place] [address] Performed By: #### 5 7021-8 #### [facility] [id number] [address] [place] [address] [place] Neutrophils (Bld) [#/Vol] 5.85 10*3/uL Normal 1.45-7.50 [facility] Comment on above: Order Comment: Speci men Type: BLOOD SPECIMEN Ordering Facility: [facility] Address: [address] [place] [address] Performed By: #### 5 7021-8 #### [facility] CLIA [id number] [address] [place] [address] [place] Neutrophils/100 WBC (Bld) 75.6 % Normal [facility] Comment on above: Order Comment: Speci men Type: BLOOD SPECIMEN Ordering Facility: [facility] Address: [address] [place] [address] Performed By: #### 5 7021-8 #### [facility] CLIA [id number] [address] [place] [address] [place] Nucleated RBC (Bld) [#/Vol] 10*3/uL Normal <0.01 [facility] Comment on above: Order Comment: Speci men Type: BLOOD SPECIMEN Ordering Facility: [facility] Address: [address] [place], [place] [address] Performed By: #### 5 7021-8 #### [facility] CLIA [id number] [address] [place] [address] [place] Nucleated RBC/100 WBC (Bld) [Ratio] 0.0 /100 WBC Normal [facility] Comment on above: Order Comment: Speci men Type: BLOOD SPECIMEN Ordering Facility: [facility] Address: [address] [place], [place] [address] Performed By: #### 5 7021-8 #### [facility] CLIA [id number] [address] [place] [address] [place] Platelet mean volume (Bld) [Entitic vol] 9.8 fL Normal 9.0-12.7 [facility] Comment on above: Order Comment: Speci men Type: BLOOD SPECIMEN Ordering Facility: [facility] Address: [address] [place] [address] Performed By: #### 5 7021-8 #### [facility] CLIA [id number] [address] [place] [address] [place] Platelets (Bld) [#/Vol] 222 10*3/uL Normal 150-400 [facility] Comment on above: Order Comment: Speci men Type: BLOOD SPECIMEN Ordering Facility: [facility] Address: [address] [place] [address] Performed By: #### 5 7021-8 #### [facility] CLIA [id number] [address] [place] [address] [place] RBC (Bld) [#/Vol] 3.74 10*6/uL Low 3.90-5.20 [facility] Comment on above: Order Comment: Speci men Type: BLOOD SPECIMEN Ordering Facility: [facility] Address: [address] [place] [address] Performed By: #### 5 7021-8 #### [facility] CLIA [id number] [address] [place] [address] [place] WBC (Bld) [#/Vol] 7.74 10*3/uL Normal 3.70-11.00 [facility] Comment on above: Order Comment: Speci men Type: BLOOD SPECIMEN Ordering Facility: [facility] Address: [address] [place] [address] Performed By: #### 5 7021-8 #### [facility] CLIA [id number] [address] [place] [address] [place] GESTATIONAL GLUCOSE SCREEN, 1-HOUR, 50 GRAM, NON-FASTINGOrdered By: Tamra Torres on 03-17-2025 Glucose [Mass/Vol] 149 mg/dL High 74 - 134 mg/dL [facility] Comment on above: [place] Congress of Obstetricians and Gynecologists (Álvarez/Coustan) guidelines state a gestational diabetes mellitus positive screen is made, in women not previously diagnosed with overt diabetes, when the 1 hr plasma glucose level is equal to or above 140 mg/dL. [facility] Continuous Process Machine [employer] and [facility] [place] recommends a 135 mg/dL cutoff. Interpretation and review of laboratory results Abnormal [facility] GESTATIONAL GLUCOSE SCREEN, 1-HOUR, 50 GRAM, NON-FASTINGon 03-17-2025 Glucose [Mass/Vol] 149 mg/dL High 74-134 [facility] Comment on above: Order Comment: Speci men Type: BLOOD SPECIMEN Ordering Facility: [facility] Address: [address] [place] [address] Result Comment: [place] Congress of Obstetricians and Gynecologists (Preeti/Ryne) guidelines state a gestational diabetes mellitus positive screen is made, in women not previously diagnosed with overt diabetes, when the 1 hr plasma glucose level is equal to or above 140 mg/dL. [facility] Continuous Process Machine Operator and [facility] [place] recommends a 135 mg/dL cutoff. Performed By: #### 5 7021-8 #### [facility] CLIA [id number] [address] [place] [address] [place] Reagin and Treponema pallidu m IgG and IgM [Interp]on 03-17-2025 T. pallidum IgG+IgM IA Ql (S) Non-Reactive Normal Nonreactive [facility] Comment on above: Order Comment: Speci men Type: SWAB Ordering Facility: [facility] Address: [address] [place] [address] Performed By: #### T RVAMP, 43906-7 #### [facility] CLIA [id number] [address] [place] [address] [place] Reagin+T pallidum IgG+IgM Se rPl-Impon 03-17-2025 Reagin and Treponema pallidum IgG and IgM [Interp] Cannot exclude recent Treponemal infection if specimen collected within 7-10 days after appearance of suspect lesions or 2-3 weeks after an exposure. Clinical correlation is required. Normal [facility] Comment on above: Order Comment: Speci men Type: SWAB Ordering Facility: [facility] Address: [address] [place] [address] Performed By: #### T RVAMP, 58082-7 #### [facility] CLIA [id number] [address] [place] [address] [place] Examination level ultrasound on 01-14-2025 Indication Standard anatomic survey Impression The patient is referred for a standard anatomic survey. - Single, live, intrauterine . - biometry is consistent with the established gestational age. - No malformations were visualized on a complete standard anatomic survey. - The amniotic fluid volume is normal amount. - The placenta is posterior, fundal. - The Transabdominal cervical length measures 40.2 mm with no evidence of funneling or other dynamic changes. - Not all structural malformations can be detected by ultrasound examination. Recommendations Additional follow-up as clinically indicated. Maternal Assessment Height 157 cm Height (ft) 5 ft Height (in) 2 in Physical Exam Initial weight (lb) 112 lb Initial BMI 20.49 kg/m Maternal assessment other: 3 Para 2 REMOTE READ Method Transabdominal ultrasound examination. View: Adequate visualization Slater . Number of fetuses: 1 Dating LMP on: 09/01/2024 GA by LMP 19 w + 2 d ANNE MARIE by LMP: 06/08/2025 GA by prior assessment 19 w + 2 d ANNE MARIE by prior assessment: 06/08/2025 Ultrasound examination on: 01/14/2025 GA by U/S based upon: AC, BPD, Femur, HC GA by U/S 20 w + 1 d ANNE MARIE by U/S: 06/02/2025 Assigned: based on stated ANNE MARIE, selected on 01/14/2025 Assigned GA 19 w + 2 d Assigned ANNE MARIE: 06/08/2025 General Evaluation Cardiac activity present. FHR 142 bpm. movements: present. Presentation: cephalic Placenta: Placental site: posterior, fundal Umbilical cord: Cord vessels: 3 vessel cord Amniotic fluid: Amount of AF: normal amount. MVP 7.3 cm Growth Overview Exam date GA BPD (mm) HC (mm) AC (mm) FL (mm) HL (mm) EFW (g) 01/14/2025 19w 2d 48 91% 174.4 71% 152.4 82% 30 65% 28.9 55% 320 79% Biometry Standard BPD 48.0 mm 20w 4d 91% Hadlock OFD 60.6 mm 19w 5d 86% Nicolaides HC 174.4 mm 20w 0d 71% Thang Cerebellum tr 22.0 mm 20w 4d 96% Hill Nuchal fold 3.4 mm AC 152.4 mm 20w 3d 82% Hadlock Femur 30.0 mm 19w 3d 65% Thang Humerus 28.9 mm 19w 3d 55% Thang EFW 320 g 19w 6d 79% Hadlock EFW (lb) 0 lb EFW (oz) 11 oz EFW by: Hadlock (HC-AC-FL) Extended Grinder Set Up Operator Jig 6.3 mm CM 5.2 mm 62% Nicolaides Extremities / Bony Struc FL / HC 0.17 11% Hadlock Other Structures FHR 142 bpm Anatomy Cranium: normal Lateral ventricles: normal Choroid plexus: normal Midline falx: normal Cavum septi pellucidi: normal Cerebellum: normal Cisterna magna: normal Head / Neck Vermis: Normal but not required for a standard anatomy exam Neck: Normal but not required for a standard anatomy exam Nuchal fold: Normal but not required for a standard anatomy exam Lips: normal Profile: Normal but not required for a standard anatomy exam Nose: Normal but not required for a standard anatomy exam Face Maxilla: Normal but not required for a standard anatomy exam Mandible: Normal but not required for a standard anatomy exam Orbits: Normal but not required for a standard anatomy exam Lens: Normal but not required for a standard anatomy exam 4-chamber view: normal RVOT view: normal LVOT view: normal 3-vessel view: normal 4-bawfem-tummbvd view: normal Heart / Thorax Situs: situs solitus (normal) Aortic arch view: Normal but not required for a standard anatomy exam SVC: Normal but not required for a standard anatomy exam IVC: Normal but not required for a standard anatomy exam Cardiac axis: normal Rt lung: Normal but not required for a standard anatomy exam Lt lung: Normal but not required for a standard anatomy exam Diaphragm: normal Cord insertion: normal Stomach: normal Kidneys: normal Bladder: normal Genitals: normal Abdomen Abdom. wall: normal Cervical spine: normal Thoracic spine: normal Lumbar spine: normal Sacral spine: normal Arms: normal Legs: normal Rt upper arm: normal Rt forearm: normal Rt hand: normal Rt fingers: normal Lt upper arm: normal Lt forearm: normal Lt hand: normal Lt fingers: normal Rt upper leg: normal Rt lower leg: normal Rt foot: normal Lt upper leg: normal Lt lower leg: normal Lt foot: normal sex: male Wants to know sex: yes Maternal Structures Uterus / Cervix Uterus: Visualized Cervix: Visualized Approach: Transabdominal Cervical length 40.2 mm Other: Patient declined transvaginal ultrasound for cervical length. Ovaries / Tubes / Adnexa Rt ovary: Visualized Lt ovary: Visualized Performed By: Delilah Carrillo RDMS, RVT Read By: Leslie Loya M.D. MATERNAL MEDICINE [facility] Radiology Study observation (narrative) [facility] Zulma 12-01-2024 CNPN Telephone (OBGYWM) ROBI MASTERS ([id number]) 1995 F Date Time Provider Department 12/01/24 OPHELIA EPSTEIN OBGYWM During your visit today, we recorded the following information about you: Primo Loyola MA 12/01/2024 8:43 AM Signed Received [facility] paperwork. VALENTIN Goldsmith [place], MA 12/10/2024 8:18 AM Signed [facility] paperwork completed and faxed back to employer. Patient notified. Primo Loyola MA Allergies As of Date: 12/01/2024 (No Known Allergies) Date Reviewed: 11/25/2024 Reviewed by: Cindy Gomez MA - Fully Assessed Reason for Visit: [facility] Paperwork [4720] Prescriptions as of 12/10/2024 - aspirin, enteric coated (ECOTRIN LOW STRENGTH) 81 mg EC tablet Take 1 tablet by mouth once daily. - PNV no.95/ferrous fum/folic ac ( ORAL) Take by mouth. - ferrous sulfate (IRON ORAL) Take by mouth. Problem List As Of Date 12/01/2024 Noted Resolved Nausea and vomiting during (HCC) [O21*10/28/2024 Encounter for supervision of high risk pregnanc*10/28/2024 History of vacuum extraction assisted delivery *10/28/2024 History of oligohydramnios [Z87.59] 10/28/2024 History of episiotomy [Z98.890] 10/28/2024 History of abnormality in previous pregna*11/25/2024 Encounter Status:Closed by PRIMO LOYOLA on 12/10/24 Normal [facility] CBC W Auto Differential pane l (Bld)on 11-25-2024 Basophils (Bld) [#/Vol] 10*3/uL Normal <0.11 [facility] Comment on above: Order Comment: Speci men Type: BLOOD SPECIMEN Ordering Facility: [facility] Address: [address] [place] [address] Performed By: #### 5 7021-8 #### [facility] CLIA [id number] [address] [place] [address] [place] Basophils/100 WBC (Bld) 0.3 % Normal [facility] Comment on above: Order Comment: Speci men Type: BLOOD SPECIMEN Ordering Facility: [facility] Address: [address] [place] [address] Performed By: #### 5 7021-8 #### [facility] CLIA [id number] [address] [place] [address] [place] Differential cell count method Nom (Bld) Auto Normal [facility] Comment on above: Order Comment: Speci men Type: BLOOD SPECIMEN Ordering Facility: [facility] Address: [address] [place] [address] Performed By: #### 5 7021-8 #### [facility] CLIA [id number] [address] [place] [address] [place] Eosinophils (Bld) [#/Vol] 0.03 10*3/uL Normal <0.46 [facility] Comment on above: Order Comment: Speci men Type: BLOOD SPECIMEN Ordering Facility: [facility] Address: [address] [place] [address] Performed By: #### 5 7021-8 #### [facility] CLIA [id number] [address] [place] [address] [place] Eosinophils/100 WBC (Bld) 0.5 % Normal [facility] Comment on above: Order Comment: Speci men Type: BLOOD SPECIMEN Ordering Facility: [facility] Address: [address] [place] [address] Performed By: #### 5 7021-8 #### [facility] CLIA [id number] [address] [place] [address] [place] Erythrocyte distribution width (RBC) [Ratio] 12.8 % Normal 11.5-15.0 [facility] Comment on above: Order Comment: Speci men Type: BLOOD SPECIMEN Ordering Facility: [facility] Address: [address] [place], [place] [address] Performed By: #### 5 7021-8 #### [facility] CLIA [id number] [address] [place] [address] [place] Hematocrit (Bld) [Volume fraction] 37.0 % Normal 36.0-46.0 [facility] Comment on above: Order Comment: Speci men Type: BLOOD SPECIMEN Ordering Facility: [facility] Address: [address] [place] [address] Performed By: #### 5 7021-8 #### [facility] CLIA [id number] [address] [place] [address] [place] Hemoglobin (Bld) [Mass/Vol] 12.4 g/dL Normal 11.5-15.5 [facility] Comment on above: Order Comment: Speci men Type: BLOOD SPECIMEN Ordering Facility: [facility] Address: [address] [place] [address] Performed By: #### 5 7021-8 #### [facility] CLIA [id number] [address] [place] [address] [place] Immature granulocytes (Bld) [#/Vol] 10*3/uL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 females is a marker of genital tract colonization. If this patient is , please refer to ACOG guidelines for appropriate screening and management of women. Performed By: #### 3 88, 73151 #### [facility] [address], [address] [place] [address] Technical Agronomist: Ralph Salguero MD Laboratory - Chemistry and C hemistry - challengeon 03-07-2022 Bilirubin Ql (U) small Abnormal [facility] [employer] [employer]. Ketones Ql (U) trace Normal [employer] [employer], [employer]. pH (U) 6.0 [pH] Normal [employer], [employer]. Specific gravity (U) [Rel density] >=1.030 Normal [employer]. Urobilinogen Qn (U) 0.2 mg/dL Normal [employer] Laboratory - Hematology and Cell countson 03-07-2022 Hemoglobin Ql (U) Negative Normal [employer]. Laboratory - Specimen inform ationon 03-07-2022 Appearance (U) clear Normal [employer] [employer]. Color (U) yellow Normal [employer] [employer], [employer]. Laboratory - Urinalysison Glucose Test strip (U) [Mass/Vol] Negative Normal [employer] [employer], [employer]. Leukocyte esterase Test strip Ql (U) trace Normal [employer] [employer], [employer]. Nitrite Ql (U) Negative Normal [facility] [employer]. Protein Ql (U) trace Normal [facility] [employer], [employer]. No Panel Informationon 03-07 MARIFER: Detected Abnormal [employer] [employer], [employer]. CULTURE, URINE, ROUTINE SEE NOTE Abnormal [employer]. GARDNERELLA: Not detected Normal [employer] [employer]. TRICHOMONAS: Not detected Normal [facility], [employer], [facility]. Progress Noteon 02-01-2020 Supervisor Graphite Authentication Interface Message Text Maternal Medicine Consult Date of Service: 02/01/2020 Referring Provider: Mago Agosto Primary Care Provider: [facility], MD Lana Reason for Consult: Dr. Mago Agosto requests that Robi be evaluated due to concerns of IUGR Robi is a 24 y.o. at 37w0d gestation who presents for evaluation of concerns related to IUGR found at outside hospital. She is without complaints today HPI OB History Para Term AB Living 2 1 1 0 0 1 SAB TAB Ectopic Multiple Live Births 0 0 0 0 1 # Outcome Date GA Lbr Fredrick/2nd Weight Sex Delivery Anes PTL Lv 2 Current 1 Term 08/2016 38w0d 2.92 kg M Vag-Vacuum EPI N MARY Comments: [place], IUGR; [place]'s History reviewed. No pertinent past medical history. History reviewed. No pertinent surgical history. No Known Allergies Social History Socioeconomic History Marital status: Single Spouse name: None Number of children: None Years of education: None Highest education level: None Occupational History None Social Needs Financial resource strain: None Food insecurity Worry: None Inability: None Transportation needs Medical: None Non-medical: None Tobacco Use Smoking status: Never Smoker Smokeless tobacco: Never Used Substance and Sexual Activity Alcohol use: Not Currently Drug use: Never Sexual activity: None Lifestyle Physical activity Days per week: None Minutes per session: None Stress: None Relationships Social connections Talks on phone: None Gets together: None Attends caodaism service: None Active member of club or organization: None Attends meetings of clubs or organizations: None Relationship status: None Intimate partner violence Fear of current or ex partner: None Emotionally abused: None Physically abused: None Forced sexual activity: None Other Topics Concern None Social History Narrative None Infections Live with someone with or exposed to TB No History of STI's Rash or viral illness since last menstruation No 2nd STI GBS 3rd STI Hx of Chicken Pox Yes Other infections Partner has hx of genital herpes No Genetics Age is > than 35y as of estimated date No Thalassemia No Neural Tube Defect No Congenital Heart Defect No Down Syndrome No Piyush-Sachs No Robert Disease No Sickle Cell Disease or Trait No Hemophilia, Thrombophilia No Muscular Dystrophy No Cystic Fibrosis No Jaime's Chorea No Intellectual Disability/Autism No Metabolic Disorder No Recurrent Loss, or a Stillbirth No Inherited Genetic or Chromosomal Disorder No Illicit; Rec.drugs; Alcohol since last menses No Family History Problem Relation Age of Onset Heart Disease Maternal Grandmother Cancer Paternal Grandmother Outpatient Encounter Medications as of 02/01/2020 Medication Sig Dispense Refill Ferrous Sulfate (IRON) 325 (65 Fe) MG TABS Take 65 mg by mouth 2 times daily Vit w/Ui-Ilwzjyrrq-HD (PNV PO) Take by mouth No facility-administere d encounter medications on file as of 02/01/2020. Review of Systems Negative Physical Exam Vitals: 02/01/20 1248 BP: 127/79 Laboratory Test Results: No visits with results within 1 Year(s) from this visit. Latest known visit with results is: No results found for any previous visit. Ultrasound Results: - Please see Ultrasound test for full details. Assessment/Plan: Robi Masters is a 24 y.o. at 37w1d with: Active Non-Hospital Problems Diagnosis Date Noted Suspected problem with growth not found 02/03/2020 Ultrasound on 02/03/20 normal growth Follow up as clinically indicated, plan for delivery per primary OB doctor The total patient time of the visit was 10 minutes, of which greater than 50% of the time was spent counseling and coordinating care. Normal [facility] Vital Signs Date Time Vital Sign Value Performing Clinician Facility 03-17-2025 10:38-0400 Body mass index (BMI) [Ratio] 21.65 kg/m2 Yarely Brady MD Work Phone: [facility] 03-17-2025 10:38-0400 Body weight 53.71 kg Yarely Brady MD Work Phone: [facility] 03-17-2025 10:38-0400 Diastolic blood pressure 80 mm[Hg] Yarely Brady MD Work Phone: [facility] 03-17-2025 10:38-0400 Systolic blood pressure 120 mm[Hg] Yarely Brady MD Work Phone: [facility] 01-14-2025 15:47-0400 Body mass index (BMI) [Ratio] 20.48 kg/m2 Tori Vega MD Work Phone: [facility] 01-14-2025 15:47-0400 Body weight 50.8 kg Tori Vega MD Work Phone: [facility] 01-14-2025 15:47-0400 Diastolic blood pressure 58 mm[Hg] Tori Vega MD Work Phone: [facility] 01-14-2025 15:47-0400 Systolic blood pressure 96 mm[Hg] Tori Vega MD Work Phone: [facility] 11-25-2024 15:14-0400 Body mass index (BMI) [Ratio] 20.66 kg/m2 Ophelia Lopez MD Work Phone: [facility] 11-25-2024 15:14-0400 Body weight 51.26 kg Ophelia Lopez MD Work Phone: [facility] 11-25-2024 15:14-0400 Diastolic blood pressure 60 mm[Hg] Ophelia Lopez MD Work Phone: [facility] 11-25-2024 15:14-0400 Systolic blood pressure 98 mm[Hg] Ophelia Lopez MD Work Phone: [facility] 10-28-2024 09:46-0400 Body height 157.5 cm Travis Inman APRN.INTERVENTIONAL SALE CONSULTANT Work Phone: [facility] 10-28-2024 09:46-0400 Body mass index (BMI) [Ratio] 20.99 kg/m2 Travis Inman PIPE ORGAN MECHANIC.INTERVENTIONAL SALE CONSULTANT Work Phone: [facility] 10-28-2024 09:46-0400 Body weight 52.07 kg Travis Inman APRN.INTERVENTIONAL SALE CONSULTANT Work Phone: [facility] 10-28-2024 09:46-0400 Diastolic blood pressure 70 mm[Hg] Travis Inman PIPE ORGAN MECHANIC.INTERVENTIONAL SALE CONSULTANT Work Phone: [facility] 10-28-2024 09:46-0400 Systolic blood pressure 112 mm[Hg] Travis Garciarodrigo VANN.INTERVENTIONAL SALE CONSULTANT Work Phone: [facility] 10-12-2024 11:20-0400 Body height 160.02 cm Caren Solo LPN [facility], [employer]. 10-12-2024 11:20-0400 Body mass index (BMI) [Ratio] 20.37 kg/m2 Caren Solo LPN [facility] [employer] [facility] [employer] 10-12-2024 11:20-0400 Body surface area Derived from formula 1.53 m2 Caren Solo LPN [place] [employer] [facility] [employer] [employer] 10-12-2024 11:20-0400 Body temperature 98.5 [degF] Caren Solo EXCELSIOR MACHINE OPERATOR [facility] [employer] [facility] [employer]. Comment on above: Method: Tympanic 10-12-2024 11:20-0400 Body weight 52.16 kg Caren Solo LPN [place] [employer] [facility] [employer] [employer]. 10-12-2024 11:20-0400 Diastolic blood pressure 61 mm[Hg] [facility].; [employer]. Comment on above: Patient Position: Sitting; Cuff Location : Left Arm; Cuff Size: Standard 10-12-2024 11:20-0400 Heart rate 56 /min Caren Solo LPN [place] [employer] [facility] [employer] [employer]. Comment on above: Pattern: Regular 10-12-2024 11:20-0400 Inhaled oxygen concentration 21 % Caren Solo LPN [place] [employer] [facility] [employer] [employer]. Comment on above: Room air 10-12-2024 11:20-0400 SaO2% (BldA) [Mass fraction] 100 % Caren Solo LPN [place] [employer] [facility] [employer] [employer]. 10-12-2024 11:20-0400 Systolic blood pressure 97 mm[Hg] Caren Solo LPN [place] [employer] [facility] [employer] [employer]. Comment on above: Patient Position: Sitting; Cuff Location : Left Arm; Cuff Size: Standard 08-12-2023 11:51-0500 Body height 160.[address] RN [facility] [employer]. 08-12-2023 11:51-0500 Body mass index (BMI) [Ratio] 19.49 kg/m2 [address]i [address] RN [facility] [facility] [employer] [employer]. 08-12-2023 11:51-0500 Body surface area Derived from formula 1.[address] RN [facility] [employer]. 08-12-2023 11:51-0500 Body temperature 97.9 [degF] [address]i [address] RN [facility] [employer]. Comment on above: Method: Tympanic 08-12-2023 11:51-0500 Body weight 49.[address] RN [facility] [employer]. 08-12-2023 11:51-0500 Diastolic blood pressure 59 mm[Hg] [address]ambi [address] RN [facility] [employer]. Comment on above: Patient Position: Sitting; Cuff Location : Left Arm; Cuff Size: Standard 08-12-2023 11:51-0500 Heart rate 64 /min [address] RN [facility] [employer]. Comment on above: Pattern: Regular 08-12-2023 11:51-0500 Inhaled oxygen concentration 20 % [address] RN [facility] [employer]. Comment on above: Room air 08-12-2023 11:51-0500 Inhaled oxygen concentration 21 % [address] RN [facility] [employer]. Comment on above: Room air 08-12-2023 11:51-0500 SaO2% (BldA) [Mass fraction] 99 % [address] RN [facility] [employer]. 08-12-2023 11:51-0500 Systolic blood pressure 93 mm[Hg] Bambi Street RN [facility] [employer] [employer] [facility] [employer]. Comment on above: Patient Position: Sitting; Cuff Location : Left Arm; Cuff Size: Standard 03-20-2023 13:03-0400 Body height 160.02 cm Radha Gomez [facility] [employer]. 03-20-2023 13:03-0400 Body mass index (BMI) [Ratio] 18.95 kg/m2 Radha Gomez [facility] [employer]. 03-20-2023 13:03-0400 Body surface area Derived from formula 1.48 m2 Radha Gomez MA [place] [employer] [facility] [employer].; [employer]. 03-20-2023 13:03-0400 Body weight 48.54 kg Radha Gomez MA [facility]. 03-20-2023 13:03-0400 Diastolic blood pressure 68 mm[Hg] Radha Gomez MA [facility] [employer]. Comment on above: Patient Position: Sitting; Cuff Location : Left Arm; Cuff Size: Standard 03-20-2023 13:03-0400 Heart rate 73 /min Radha Gomez [facility]. Comment on above: Pattern: Regular 03-20-2023 13:03-0400 Systolic blood pressure 106 mm[Hg] Radha Gomez MA [employer]. Comment on above: Patient Position: Sitting; Cuff Location : Left Arm; Cuff Size: Standard 03-07-2022 13:55-0400 Body height 160.02 cm Huong Turner LPN [place] [employer] [facility]. 03-07-2022 13:55-0400 Body mass index (BMI) [Ratio] 20.19 kg/m2 Huong Turner LPN [employer]. 03-07-2022 13:55-0400 Body surface area Derived from formula 1.52 m2 Huong Turner LPN [facility], [facility].; [facility]. 03-07-2022 13:55-0400 Body temperature 98.6 [degF] Huong Turner LPN [facility].; [facility], [facility]. Comment on above: Method: Tympanic 03-07-2022 13:55-0400 Body weight 51.71 kg Huong Turner LPN [facility].; [facility]. 03-07-2022 13:55-0400 Diastolic blood pressure 71 mm[Hg] Huong Turner LPN [facility].; [facility], [facility]. Comment on above: Patient Position: Sitting; Cuff Location : Left Arm; Cuff Size: Standard 03-07-2022 13:55-0400 Heart rate 75 /min Huong Turner LPN [facility].; [facility]. Comment on above: Pattern: Regular 03-07-2022 13:55-0400 Systolic blood pressure 113 mm[Hg] Huong Turner LPN [facility].; [facility], [facility]. Comment on above: Patient Position: Sitting; Cuff Location : Left Arm; Cuff Size: Standard 05-31-2021 09:16-0500 Body height 160.02 cm Tori Estrada PA-C Work Phone: [facility].; [facility] 05-31-2021 09:16-0500 Body mass index (BMI) [Ratio] 18.78 kg/m2 Tori Estrada PA-C Work Phone: [facility].; [facility]. 05-31-2021 09:16-0500 Body surface area Derived from formula 1.48 m2 Tori Estrada PA-C Work Phone: [facility].; [facility]. 05-31-2021 09:16-0500 Body weight 48.08 kg Tori Estrada PA-C Work Phone: [facility].; [facility]. 05-31-2021 09:16-0500 Diastolic blood pressure 72 mm[Hg] Tori Estrada PA-C Work Phone: [facility] [employer]; [employer]. Comment on above: Patient Position: Sitting; Cuff Location : Left Arm; Cuff Size: Standard 05-31-2021 09:16-0500 Heart rate 69 /min Tori Estrada PA-C Work Phone: [employer]; [employer] Comment on above: Pattern: Regular 05-31-2021 09:16-0500 Systolic blood pressure 117 mm[Hg] Tori Estrada PA-C Work Phone: [facility] [employer]; [employer] Comment on above: Patient Position: Sitting; Cuff Location : Left Arm; Cuff Size: Standard Encounters Encounter Date Encounter Type Care Provider Facility Start: 05-05-2025 End: 05-05-2025 ambulatory TORI VEGA Facility:[facility] Start: 04-21-2025 End: 04-21-2025 ambulatory YARELY BRADY Facility:[facility] Start: 04-14-2025 End: 04-14-2025 ambulatory YARELY BRADY Facility:[facility] Start: 03-24-2025 End: 03-24-2025 ambulatory YARELY BRIAN Facility:[facility] Start: 03-17-2025 End: 03-17-2025 ambulatory YARELY BRADY Facility:[facility] Start: 03-17-2025 End: 03-17-2025 Patient encounter procedure Yarely Brady MD Work Phone: OB/Gynecology Comment on above: Screening for diabet es mellitus (Primary Dx); 28 weeks gestation of (HCC); Supervision of high risk in second trimester (HCC); Need for vaccination Start: 01-14-2025 End: 01-14-2025 ambulatory TORI VEGA Facility:[facility] Start: 01-14-2025 End: 01-14-2025 Patient encounter procedure 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 [employer] [facility] Comment on above: Encounter for anatomic survey (HCC) (Primary Dx); 19 weeks gestation of (HCC) Supervision of high risk in second trimester (HCC) (Primary Dx); 19 weeks gestation of (HCC); Nausea and vomiting during (HCC) Start: 12-01-2024 End: 12-10-2024 Telephone encounter Ophelia Lopez MD Work Phone: OB/Gynecology Comment on above: FMLA Paperwork Start: 11-25-2024 End: 11-25-2024 Patient encounter procedure Ophelia Lopez MD Work Phone: OB/Gynecology Comment on above: Encounter for superv ision of high risk in first trimester, antepartum (HCC) (Primary Dx); History of vacuum extraction assisted delivery; History of abnormality in previous , currently , first trimester (HCC); 12 weeks gestation of (HCC) Start: 11-25-2024 End: 11-25-2024 ambulatory TRAVIS INMAN Facility:[facility] Start: 11-02-2024 End: 01-02-2025 Follow-up encounter Travis Inman APRN.CNP Work Phone: OB/Gynecology Start: 10-28-2024 End: 10-28-2024 Patient encounter procedure Travis Inman APRN.CNP Work Phone: OB/Gynecology Comment on above: Encounter for superv ision of high risk in first trimester, antepartum (HCC) (Primary Dx); 8 weeks gestation of (HCC); with uncertain dates in first trimester (HCC); History of vacuum extraction assisted delivery; History of oligohydramnios; History of episiotomy; Screen for STD (sexually transmitted disease); Screening for cervical cancer; Nausea and vomiting during (HCC) Start: 10-28-2024 End: 10-28-2024 ambulatory SELF Facility:[facility] Start: 10-12-2024 End: 10-12-2024 Office outpatient visit 15 minutes Tori Estrada PA-C Work Phone: [facility], [facility]. Start: 10-07-2024 End: 10-07-2024 ambulatory Tori Estrada Facility:[facility] Start: 08-12-2023 End: 08-12-2023 Office outpatient visit 15 minutes Tori Estrada PA-C Work Phone: [employer] Start: 03-20-2023 End: 03-20-2023 Periodic preventive med est patient 18-39 yrs Tori Estrada PA-C Work Phone: [employer] Start: 03-20-2023 End: 03-20-2023 Physical examination Tori Estrada PA-C Work Phone: [employer]; [employer] Start: 03-13-2023 End: 03-13-2023 Emergency department patient visit JAYCE CHAPIN [facility] Start: 03-09-2022 End: 03-09-2022 Medication Tori Estrada PA-C Work Phone: [employer] Start: 03-07-2022 End: 03-07-2022 Office outpatient visit 15 minutes Tori Estrada PA-C Work Phone: [employer] Start: 05-31-2021 End: 05-31-2021 Office outpatient new 30 minutes Tori Estrada PA-C Work Phone: [employer] Physical examination Tori girard PA-C Work Phone: [employer]; [employer] Procedures Date Procedure Procedure Detail Performing Clinician Start: 01-14-2025 Us preg uterus after 1st trimest 07/01 gestation Travis Inman APRN.INTERVENTIONAL SALE CONSULTANT Work Phone: Start: 11-25-2024 Antibody screen TORI VEGA Comment on above: Order Comment: Speci men Type: BLOOD SPECIMEN Ordering [facility] Address: [facility] [place] [address] Performed By: #### 5 [id number] #### [facility] [id number] [address] [place] [address] [place] Start: 10-28-2024 Us uterus limited 1/ fetuses Travis Inman APRN.INTERVENTIONAL SALE CONSULTANT Work Phone: Start: 03-20-2023 End: 03-20-2023 Depression screening Tori Estrada PA-C Work Phone: Start: 03-20-2023 End: 03-20-2023 Scr dep neg, no plan reqd Tori Estrada PA-C Work Phone: Start: 03-07-2022 End: 03-07-2022 No Known Past Surgical History Radha Gomez MA Plan of Treatment Date Care Activity Detail Author Start: 03-17-2035 Urine microalbumin profile DTaP,Tdap,Td Vaccine (2 - Td or Tdap) [facility] Start: 10-29-2027 Screening for malignant neoplasm of cervix Cervical Cancer Screening [facility] Start: 04-14-2025 End: 04-14-2025 Patient encounter procedure 04/14/2025 8:10 AM EDT Routine Office Visit OB/Gynecology [address] [place] [address] Yarely Brady MD [address] [place] [address] OB OB/Gynecology Comment on above: OB Start: 04-13-2025 RSV Vaccine (1 - Ris k 1-dose series) RSV Vaccine (1 - Risk 1-dose series) [facility] Start: 03-17-2025 End: 06-16-2025 ANEMIA REFLEX PANEL [facility] Comment on above: Expected: 03/17/2025 , Expires: 06/16/2025 Start: 03-17-2025 End: 03-17-2026 SYPHILIS TREPONEMAL W/REFLEX [facility] Work Phone: Comment on above: Expected: 03/17/2025 , Expires: 03/17/2026 Start: 03-01-2025 Influenza vaccination [facility] Start: 02-10-2025 End: 02-10-2025 Patient encounter procedure 02/10/2025 3:10 PM EDT Routine Office Visit OB/Gynecology [address] [place] [address] Tori Vega MD [address] [place] [address] OB OB/Gynecology Comment on above: OB Start: 01-14-2025 End: 01-14-2025 Patient encounter procedure Maternal Medicine Comment on above: anatomy ob Start: 12-09-2024 End: 12-09-2024 Patient encounter procedure 12/09/2024 8:30 AM EDT Routine Office Visit [facility] [address] [place] [address] [facility] Comment on above: [facility] Start: 11-25-2024 End: 11-25-2024 Patient encounter procedure 11/25/2024 3:20 PM EDT Routine Office Visit OB/Gynecology [address] [place] [id number] Ophelia Epstein MD [address] [place] [address] New Pt OB/Gynecology Comment on above: New Pt Start: 10-28-2024 End: 01-27-2025 ANEMIA REFLEX PANEL ANEMIA REFLEX PANEL Lab Routine Encounter for supervision of high risk in first trimester, antepartum (HCC) Expected: 10/28/2024, Expires: 01/27/2025 [facility] Work Phone: Comment on above: Expected: 10/28/2024 , Expires: 01/27/2025 Start: 10-28-2024 End: 01-27-2025 Hemoglobin A1c in Blood HEMOGLOBIN A1C Lab Routine Encounter for supervision of high risk in first trimester, antepartum (HCC) Expected: 10/28/2024, Expires: 01/27/[address] [facility] Comment on above: Expected: 10/28/2024 , Expires: 01/27/2025 Start: 10-28-2024 End: 01-27-2025 Hepatitis B virus surface Ag [Presence] in Serum HEPATITIS B SURFACE ANTIGEN Lab Routine Encounter for supervision of high risk in first trimester, antepartum (HCC) Expected: 10/28/2024, Expires: 01/27/[address] [facility] Comment on above: Expected: 10/28/2024 , Expires: 01/27/2025 Start: 10-28-2024 End: 01-27-2025 Hepatitis C virus Ab [Presence] in Serum HEPATITIS C ANTIBODY IA WITH CONFIRMATION Lab Routine Encounter for supervision of high risk in first trimester, antepartum (HCC) Expected: 10/28/2024, Expires: 01/27/[address] [facility] Comment on above: Expected: 10/28/2024 , Expires: 01/27/2025 Start: 10-28-2024 End: 01-27-2025 HIV 1+2 Ab [Presence] in Serum or Plasma by Immunoassay HIV 1/2 COMBO WITH REFLEX TO DIFFERENTIATION Lab Routine Encounter for supervision of high risk in first trimester, antepartum (HCC) Expected: 10/28/2024, Expires: 01/27/[address] [facility] Comment on above: Expected: 10/28/2024 , Expires: 01/27/2025 Start: 10-28-2024 End: 10-28-2025 OBSTETRIC ULTRASOUND WHI OBSTETRIC ULTRASOUND WHI Anc Imaging Routine Encounter for supervision of high risk in first trimester, antepartum (HCC) Expected: 10/28/2024, Expires: 10/28/[address] [facility] Comment on above: Expected: 10/28/2024 , Expires: 10/28/2025 Start: 10-28-2024 End: 01-27-2025 RUBELLA IGG ANTIBODY RUBELLA IGG ANTIBODY Lab Routine Encounter for supervision of high risk in first trimester, antepartum (HCC) Expected: 10/28/2024, Expires: 01/27/[address] [facility] Comment on above: Expected: 10/28/2024 , Expires: 01/27/2025 Start: 10-28-2024 End: 01-27-2025 SYPHILIS TREPONEMAL W/REFLEX SYPHILIS TREPONEMAL W/REFLEX Lab Routine Encounter for supervision of high risk in first trimester, antepartum (HCC) Expected: 10/28/2024, Expires: 01/27/[address] [facility] Comment on above: Expected: 10/28/2024 , Expires: 01/27/2025 Start: 10-28-2024 End: 01-27-2025 TYPE + SCREEN TYPE + SCREEN Blood Bank Routine Encounter for supervision of high risk in first trimester, antepartum (HCC) Expected: 10/28/2024, Expires: 01/27/[address] [facility] Comment on above: Expected: 10/28/2024 , Expires: 01/27/2025 Start: 06-28-2024 Screening for malignant neoplasm of cervix Cervical Cancer Screening [facility] Start: 2024 HPV Vaccine (1 - 3-dose SCDM series) HPV Vaccine (1 - 3-dose SCDM series) [facility] Start: 03-01-2024 Covid-19 Vaccine ( season) Covid-19 Vaccine ( season) [facility] Start: 03-01-2024 Influenza vaccination Influenza Vacc ine (#1) [facility] Start: 2016 Hepatitis B Vaccine (1 of 3 - 19+ 3-dose series) Hepatitis B Vaccine (1 of 3 - 19+ 3-dose series) [facility] Start: 2016 Urine microalbumin profile DTaP,Tdap,Td Vaccine (1 - Tdap) [facility] Start: 2015 Anxiety Screening Anxiety Screening [facility] Start: 2015 [facility]: 2015 Hepatitis C screening Hepatitis C Sc [facility] Start: 2015 HIV screening [facility] Bacteria identified in Urine by Culture BACTERIAL CULTURE, URINE Microbiology Routine Encounter for supervision of high risk in first trimester, antepartum (HCC) 10/28/2024 10:18 AM EDT [facility] Chlamydia trachomatis+Neisseria gonorrhoeae DNA [Presence] in Unspecified specimen by TALITA with probe detection GONORRHEA/CHLAMYDIA NAAT Lab Routine Encounter for supervision of high risk in first trimester, antepartum ([facility]) Screen for STD (sexually transmitted disease) 10/28/2024 10:18 AM EDT [facility] PAP TEST PAP TEST Lab Rou whit Encounter for supervision of high risk in first trimester, antepartum ([facility]) Screening for cervical cancer 10/28/2024 10:18 AM EDT [facility] TRICHOMONAS VAGINALI S NAAT TRICHOMONAS VAGINALIS NAAT Lab Routine Encounter for supervision of high risk in first trimester, antepartum (HCC) Screen for STD (sexually transmitted disease) 10/28/2024 10:18 AM EDT [facility] Immunizations Immunization Date Immunization Notes Care Provider Juana colindres 03-17-2025 tetanus toxoid, redu leelee diphtheria toxoid, and acellular pertussis vaccine, adsorbed Yarely Brady MD Work Phone: [facility] Payers Date Payer Category Payer Self-pay 2019 Private Health Insurance [employer] [id number] 2019 Unknown [id number] 1997 Unknown [id number] Unknown [employer] Unknown [id number] Social History Date Type Detail Facility Female [facility]; [facility] Work Phone: Tobacco smoking consumption unknown [facility]; [facility], [facility] Work Phone: Start: 10-28-2024 Tobacco smoking stat us NHIS Never smoked tobacco [facility] Start: 10-28-2024 Tobacco use and exposure Smokeless tobacco non-user [facility] Start: 10-28-2024 End: 03-17-2025 Alcoholic beverage intake Lifetime non-drinker (finding) [facility] Start: 10-28-2024 End: 03-17-2025 History of Social function [facility] Start: 10-28-2024 End: 03-17-2025 Tobacco use panel [facility] Start: 06-16-2021 National Score (1-100), lower number is lower risk [address] [facility] Start: 09-15-[address] [facility] Start: 1995 Sex assigned at Not [facility] file [facility] NEGATED: Highlighted row No Social History Information Available No Social History Information Available [employer] [facility] [facility] Work Phone: Clinical Notes 10-28-2024 to 03-17-2025 Quick Notes - Yarely Brady MD - 03/17/2025 10:59 AM EDTPrenatal Quick Notes - Yarely Brady MD - 03/17/2025 10:59 AM EDTCCarolyn carrington MA - 03/17/2025 10:39 AM EDT Note Date & Type Note Facility 03-17-2025 Miscellaneous Notes S: Robi Masters is a 29 year old female who presents at 06/08/2025, by Last Menstrual Period for a routine visit. Denies headache, visual changes, chest pain, shortness of breath, vaginal bleeding, leakage of fluid, or dysuria. Feeling well, no complaints. Good movement, No contractions O: See flow sheet Gen: No apparent distress Abd: Gravid, nontender Declined flu vaccine TDAP today GCT ordered Declined LARC ASSESSMENT/PLAN: 1. Screening for diabetes mellitus - ICD9: V77.1, ICD10: Z13.1 (primary diagnosis) - GESTATIONAL GLUCOSE SCREEN, 1-HOUR, 50 GRAM, NON-FASTING 2. 28 weeks gestation of (HCC) - ICD9: V22.2, ICD10: Z3A.28 - GESTATIONAL GLUCOSE SCREEN, 1-HOUR, 50 GRAM, NON-FASTING - SYPHILIS TREPONEMAL W/REFLEX - ANEMIA REFLEX PANEL 3. Supervision of high risk in second trimester (HCC) - ICD9: V23.9, ICD10: O09.92 - GESTATIONAL GLUCOSE SCREEN, 1-HOUR, 50 GRAM, NON-FASTING - SYPHILIS TREPONEMAL W/REFLEX - ANEMIA REFLEX PANEL 4. Need for vaccination - ICD9: V05.9, ICD10: Z23 TDAP Yarely Brady MD documented in this encounter [facility] 03-17-2025 Progress note Formatting of t his note might be different from the original. S: Robi Masters is a 29 year old female who presents at 06/08/2025, by Last Menstrual Period for a routine visit. Denies headache, visual changes, chest pain, shortness of breath, vaginal bleeding, leakage of fluid, or dysuria. Feeling well, no complaints. Good movement, No contractions O: See flow sheet Gen: No apparent distress Abd: Gravid, nontender Declined flu vaccine TDAP today GCT ordered Declined LARC ASSESSMENT/PLAN: 1. Screening for diabetes mellitus - ICD9: V77.1, ICD10: Z13.1 (primary diagnosis) - GESTATIONAL GLUCOSE SCREEN, 1-HOUR, 50 GRAM, NON-FASTING 2. 28 weeks gestation of (HCC) - ICD9: V22.2, ICD10: Z3A.28 - GESTATIONAL GLUCOSE SCREEN, 1-HOUR, 50 GRAM, NON-FASTING - SYPHILIS TREPONEMAL W/REFLEX - ANEMIA REFLEX PANEL 3. Supervision of high risk in second trimester (HCC) - ICD9: V23.9, ICD10: O09.92 - GESTATIONAL GLUCOSE SCREEN, 1-HOUR, 50 GRAM, NON-FASTING - SYPHILIS TREPONEMAL W/REFLEX - ANEMIA REFLEX PANEL 4. Need for vaccination - ICD9: V05.9, ICD10: Z23 TDAP Yarely Brady MD [facility] 03-17-2025 Note HNO ID: [id number] Author: CAROLYN ARMENDARIZ MA Service: ? Author Type: Indirect Sales Representative Type: Progress Notes Filed: 03/17/2025 11:16 Note Text: Patient identified by name and date of . Robi Masters presents today for a vaccination of Tdap. Patient denies an allergy to latex: yes Patient denies a severe (life-threatening) allergy to a previous dose of Tdap, DTP, DTaP, DT or Td vaccine. Yes Patient denies history of epilepsy or neurological problems: Yes Patient is afebrile and denies being moderately or severely ill: Yes Patient denies history of Guillain-Rumford Syndrome (a severe paralytic illness): Yes Tdap Adacel injection was given without incident. See immunizations for details of immunizations administered today. VIS sheet provided: Yes Provider Yarely Brady MD was present in office at time of injection. Carolyn Armendariz MA [facility] 03-17-2025 History of Presen t illness Narrative Patient identified by name and date of . Robi Masters presents today for a vaccination of Tdap. Patient denies an allergy to latex: yes Patient denies a severe (life-threatening) allergy to a previous dose of Tdap, DTP, DTaP, DT or Td vaccine. Yes Patient denies history of epilepsy or neurological problems: Yes Patient is afebrile and denies being moderately or severely ill: Yes Patient denies history of Guillain-Rumford Syndrome (a severe paralytic illness): Yes Tdap Adacel injection was given without incident. See immunizations for details of immunizations administered today. VIS sheet provided: Yes Provider Yarely Brady MD was present in office at time of injection. Carolyn Armendariz MA documented in this encounter [facility] 03-17-2025 Instructions Carolyn Armendariz MA - 03/17/2025 10:38 AM EDT SEQUENTIAL SCREENINGS The [facility] offers sequential screenings for women who are interested in screenings for chromosomal abnormalities and certain defects during a . The sequential screen combines ultrasound and blood tests to determine the risk of chromosomal abnormalities, including Down's Syndrome (Trisomy 21) and Trisomy 18, as well as open neural tube defects including spina bifida. Ultrasound examination is performed between 11 weeks and 13 weeks gestational age. Blood tests are drawn after the ultrasound and again later in the between 15 and 21 weeks gestational age. Please let your physician know if you are interested in this testing. It will require an appointment with our optical manufacturing technician. This is not an ultrasound performed by a physician in our office during a routine visit. SIGNS AND SYMPTOMS OF LABOR 1. Contractions every 10 minutes or more often 2. Clear, pink, or brownish fluid (water) leaking from vagina 3. Feeling that baby is pushing down, pressure 4. Low, dull backache 5. Cramps that feel like a period 6. Cramps with or without diarrhea If you notice any of the above symptoms, contact our office at [phone] and ask to speak with a nurse. After hours, you can call doctors registry at [phone] OR call [facility] at [phone] and ask to have the doctor sterilization tech paged. If you consider this an emergency, dial 03-01- or go to your nearest emergency department. NEED HELP? Are you dealing with a violent or abusive relationship? Are you a victim of rape or sexual assult? Call [facility] ([place]) 24 hour Crisis Hotline: 237.319.1981 or 051-787-2241. MANUAL Your Guide to a Healthy manual is now on-line. Visit [email or web address] to download your free copy documented in this encounter [facility] 01-14-2025 Progress note Formatting of t his note might be different from the original. RR- VB No. LOF No. CTXS No. Movement: present. Other c/o: No. Medication list reviewed. SENSITIVE EXAM: Sensitive exam not performed. Physical Exam See Flow Sheet Gen: no accute distress, well appearing A/P 19w2d Estimated Date of Delivery: 06/08/25 Assessment & Plan Supervision of high risk in second trimester (HCC) anatomy US pending 19 weeks gestation of ([facility]) Nausea and vomiting during ([facility]) resolved, not needing meds now Tori Vega M.D. [facility] 01-14-2025 Miscellaneous Notes RR- VB No. LOF No. CTXS No. Movement: present. Other c/o: No. Medication list reviewed. SENSITIVE EXAM: Sensitive exam not performed. Physical Exam See Flow Sheet Gen: no accute distress, well appearing A/P 19w2d Estimated Date of Delivery: 06/08/25 Assessment & Plan Supervision of high risk in second trimester (HCC) anatomy US pending 19 weeks gestation of (HCC) Nausea and vomiting during (HCC) resolved, not needing meds now Tori Vega M.D. documented in this encounter [facility] 01-14-2025 Instructions Angle GayatriVALENTIN - 01/14/2025 3:47 PM EDT SEQUENTIAL SCREENINGS The [facility] offers sequential screenings for women who are interested in screenings for chromosomal abnormalities and certain defects during a . The sequential screen combines ultrasound and blood tests to determine the risk of chromosomal abnormalities, including Down's Syndrome (Trisomy 21) and Trisomy 18, as well as open neural tube defects including spina bifida. Ultrasound examination is performed between 11 weeks and 13 weeks gestational age. Blood tests are drawn after the ultrasound and again later in the between 15 and 21 weeks gestational age. Please let your physician know if you are interested in this testing. It will require an appointment with our optical manufacturing technician. This is not an ultrasound performed by a physician in our office during a routine visit. SIGNS AND SYMPTOMS OF LABOR 1. Contractions every 10 minutes or more often 2. Clear, pink, or brownish fluid (water) leaking from vagina 3. Feeling that baby is pushing down, pressure 4. Low, dull backache 5. Cramps that feel like a period 6. Cramps with or without diarrhea If you notice any of the above symptoms, contact our office at [phone] and ask to speak with a nurse. After hours, you can call doctors registry at [phone] OR call [facility] at [phone] and ask to have the doctor sterilization tech paged. If you consider this an emergency, dial 1--8 or go to your nearest emergency department. NEED HELP? Are you dealing with a violent or abusive relationship? Are you a victim of rape or sexual assult? Call [facility] ([place]) 24 hour Crisis Hotline: 367.117.6120 or 311-313-5105. MANUAL Your Guide to a Healthy manual is now on-line. Visit [email or web address] to download your free copy documented in this encounter [facility] 12-10-2024 Telephone encounter Note FMLA paperwork completed and faxed back to employer. Patient notified. Primo Loyola MA [facility] 12-10-2024 Miscellaneous Notes FMLA paperwork completed and faxed back to employer. Patient notified. Primo Loyola MA Received FMLA paperwork. Primo Loyola MA documented in this encounter [facility] 12-01-2024 Telephone encounter Note Received FMLA paperwork. Primo Loyola MA [facility] 11-25-2024 Progress note Formatting of t his note might be different from the original. DM-Pt doing well. Denies vaginal Bleeding, Leaking fluid, or regular Contractions. Pt reports good movement Physical Exam: Gen: female in no apparent distress Abd: soft, Gravid. Non tender to palpation. See flow sheet @ 12. 1 weeks Assessment & Plan Encounter for supervision of high risk in first trimester, antepartum (HCC) History of vacuum extraction assisted delivery History of abnormality in previous , currently , first trimester (HCC) Previous child with hirscheprung's and Oligo 12 weeks gestation of ([facility]) Declines anueploidy testing Will start ASA RTO 4 wks Needs to schedule early NT ultrasound Ophelia Orta MD [facility] 11-25-2024 Miscellaneous Notes DM-Pt doing well. Denies vaginal Bleeding, Leaking fluid, or regular Contractions. Pt reports good movement Physical Exam: Gen: female in no apparent distress Abd: soft, Gravid. Non tender to palpation. See flow sheet @ 12. 1 weeks Assessment & Plan Encounter for supervision of high risk in first trimester, antepartum (HCC) History of vacuum extraction assisted delivery History of abnormality in previous , currently , first trimester (HCC) Previous child with hirscheprung's and Oligo 12 weeks gestation of (HCC) Declines anueploidy testing Will start ASA RTO 4 wks Needs to schedule early NT ultrasound Ophelia Orta MD documented in this encounter [facility] 11-25-2024 Instructions Cindy Gomez MA - 11/25/2024 3:15 PM EDT SEQUENTIAL SCREENINGS The [facility] offers sequential screenings for women who are interested in screenings for chromosomal abnormalities and certain defects during a . The sequential screen combines ultrasound and blood tests to determine the risk of chromosomal abnormalities, including Down's Syndrome (Trisomy 21) and Trisomy 18, as well as open neural tube defects including spina bifida. Ultrasound examination is performed between 11 weeks and 13 weeks gestational age. Blood tests are drawn after the ultrasound and again later in the between 15 and 21 weeks gestational age. Please let your physician know if you are interested in this testing. It will require an appointment with our optical manufacturing technician. This is not an ultrasound performed by a physician in our office during a routine visit. SIGNS AND SYMPTOMS OF LABOR 1. Contractions every 10 minutes or more often 2. Clear, pink, or brownish fluid (water) leaking from vagina 3. Feeling that baby is pushing down, pressure 4. Low, dull backache 5. Cramps that feel like a period 6. Cramps with or without diarrhea If you notice any of the above symptoms, contact our office at [phone] and ask to speak with a nurse. After hours, you can call doctors registry at [phone] OR call [facility] at [phone] and ask to have the doctor sterilization tech paged. If you consider this an emergency, dial 8- or go to your nearest emergency department. NEED HELP? Are you dealing with a violent or abusive relationship? Are you a victim of rape or sexual assult? Call [facility] ([place]) 24 hour Crisis Hotline: 991.933.3733 or 601-083-7054. MANUAL Your Guide to a Healthy manual is now on-line. Visit [email or web address] to download your free copy documented in this encounter [facility] 10-28-2024 Note HNO ID: [id number] Author: TRAVIS INMAN APRN.INTERVENTIONAL SALE CONSULTANT Service: ? Author Type: Nurse Practitioner Type: Progress Notes Filed: 10/28/2024 10:32 Note Text: Mounter Automatic offered: Patient declines. INITIAL OB ASSESSMENT HPI: Robi is a 29 year old White here to establish Obstetrical Care. Patient's last menstrual period was 06/14/2021 (approximate). from OB Dating Form. was planned Complaints: No OB History Gravida2 Para2 Term2 Preterm0 AB0 Living1 SAB0 IAB0 Ectopic0 Multiple0 Live Births1 Comment: 2 vaginal deliveries -- at [facility] (Dr. Urena) Previous history: Prior : never History of 4th degree laceration: No History of shoulder dystocia: No History of Hypertensive disorders including pre-eclampsia or gestational hypertension: No History of gestational diabetes: No Patient's Risk Screening for delivery: Have you had a prior slater between 20w and 36w6d? No How many pregnancies have you had before? 2 Did you have a previous baby with a GBS Infection? No Please select all that apply for any prior : N/A MEDICAL/PSYCHOSOCIAL HISTORY: History of hemorrhage or bleeding concerns: No Thyroid Disease: No History of chronic hypertension: No History of pre-existing diabetes: No No results found for: "ABORHD" BMI 20.99 kg/(m2) Last Pap: 06/28/2021 normal History of abnormal pap: No Prior treatment for cervical dysplasia: N/A. Last HPV: never done History of STDs: None Partner History of STDs: None Did you have a partner with Herpes? No Tobacco use: No E-Cigarette/Vaping Use: No Caffeine use: No Drug use: No Alcohol use: No Multivitamin with Folic acid: Yes Would refuse blood transfusion if medically necessary: No Social Needs: How often does this describe you? I don't have enough money to pay my bills: Sometimes Within the past 12 months, have you worried that your food would run out before you had money to buy more? Never In the past 12 months, has lack of reliable transportation kept you from going to medical appointments or work, or from getting things needed for daily living? Never In the past 12 months, have you had any concerns about having a place to live, or about the condition or quality of your housing? Never Would you like more information on any of the following (please check all that apply)? Not interested Social History: Do you have any history of depression, anxiety, PTSD, or other mood problems? No Do you have a history of abuse or trauma that may impact your experience? No Are you currently employed? Yes Depression/Anxiety Screening: denies symptoms of depression. OB Depression and Anxiety Screening- This Encounter Over the past 2 weeks have you felt down, depressed, or hopeless? Negative Over the past two weeks, have you felt little interest or pleasure in doing things?? Negative Feeling nervous, anxious or on edge 0-Not at all Not being able to stop or control worrying 0-Not al all Anxiety Pre-Screening Total (If >/= 3 additional questions will be reviewed) 0 Genetic Screening: Partner present: Yes Patient verbalized knowledge of partner family health history: Yes Do you or your partner have any personal or family history of defects not previously discussed: No Do you have history of a complicated by anomaly, genetic condition, or demise: No Preeclampsia Risk Screening: Screening for prevention of preeclampsia: High risk factors: None Moderate risk ractors: None OB Risk Screening: Completed, no positive findings documented. Marital Status:Partnering Partner: Name: Hal Age: 33 Occupation: Dairy Laboratory Technician Gender: Male PAST MEDICAL HISTORY Diagnosis Date COVID-19 05/2021 No past surgical history on file. Current Outpatient Medications Medication Sig Dispense Refill PNV no.95/ferrous fum/folic ac ( ORAL) Take by mouth. ferrous sulfate (IRON ORAL) Take by mouth. No current facility-administered medications for this visit. Allergies As of Date: 10/28/2024 (No Known Allergies) Fully Assessed 06/28/2021 Does patient have penicillin allergy: No REVIEW OF SYSTEMS: GENERAL: Negative for: Fever or Chills HEENT: Negative for: Headache, Impaired Vision, Ringing in Ears, Nosebleeds NECK: Negative for: Swelling, Pain, Stiffness RESPIRATORY: Negative for: Cough, Shortness of breath, Wheezing GASTROINTESTINAL: Negative for: Heartburn, Constipation, Diarrhea, Blood in stool + nausea MUSCULOSKELETAL: Negative for: Muscle or joint pain, stiffness, Joint swelling NEUROLOGIC/PSYCHIATRIC: Negative for: Weakness, Paralysis, Numbness, Tingling, Tremor, Anxiety, Depression, Memory loss SKIN: Negative for: Rash, Itching GENITOURINARY: Negative for: vaginal itching, vaginal discharge, hematuria or dysuria SENSITIVE EXAM: The sensitive examination was (more content not included)... [facility] 10-28-2024 History of Presen t illness Narrative Mounter Automatic offered: Patient declines. INITIAL OB ASSESSMENT HPI: Robi is a 29 year old White here to establish Obstetrical Care. Patient's last menstrual period was 06/14/2021 (approximate). from OB Dating Form. was planned Complaints: No OB History Gravida2 Para2 Term2 Preterm0 AB0 Living1 SAB0 IAB0 Ectopic0 Multiple0 Live Births1 Comment: 2 vaginal deliveries -- at [facility] (Dr. Urena) Previous history: Prior : never History of 4th degree laceration: No History of shoulder dystocia: No History of Hypertensive disorders including pre-eclampsia or gestational hypertension: No History of gestational diabetes: No Patient's Risk Screening for delivery: Have you had a prior slater between 20w and 36w6d? No How many pregnancies have you had before? 2 Did you have a previous baby with a GBS Infection? No Please select all that apply for any prior : N/A MEDICAL/PSYCHOSOCIAL HISTORY: History of hemorrhage or bleeding concerns: No Thyroid Disease: No History of chronic hypertension: No History of pre-existing diabetes: No No results found for: "ABORHD" BMI 20.99 kg/(m^2) Last Pap: 06/28/2021 normal History of abnormal pap: No Prior treatment for cervical dysplasia: N/A. Last HPV: never done History of STDs: None Partner History of STDs: None Did you have a partner with Herpes? No Tobacco use: No E-Cigarette/Vaping Use: No Caffeine use: No Drug use: No Alcohol use: No Multivitamin with Folic acid: Yes Would refuse blood transfusion if medically necessary: No Social Needs: How often does this describe you? I don't have enough money to pay my bills: Sometimes Within the past 12 months, have you worried that your food would run out before you had money to buy more? Never In the past 12 months, has lack of reliable transportation kept you from going to medical appointments or work, or from getting things needed for daily living? Never In the past 12 months, have you had any concerns about having a place to live, or about the condition or quality of your housing? Never Would you like more information on any of the following (please check all that apply)? Not interested Social History: Do you have any history of depression, anxiety, PTSD, or other mood problems? No Do you have a history of abuse or trauma that may impact your experience? No Are you currently employed? Yes Depression/Anxiety Screening: denies symptoms of depression. OB Depression and Anxiety Screening- This Encounter Over the past 2 weeks have you felt down, depressed, or hopeless? Negative Over the past two weeks, have you felt little interest or pleasure in doing things? Negative Feeling nervous, anxious or on edge 0-Not at all Not being able to stop or control worrying 0-Not al all Anxiety Pre-Screening Total (If >/= 3 additional questions will be reviewed) 0 Genetic Screening: Partner present: Yes Patient verbalized knowledge of partner family health history: Yes Do you or your partner have any personal or family history of defects not previously discussed: No Do you have history of a complicated by anomaly, genetic condition, or demise: No Preeclampsia Risk Screening: Screening for prevention of preeclampsia: High risk factors: None Moderate risk ractors: None OB Risk Screening: Completed, no positive findings documented. Marital Status:Partnering Partner: Name: Hal Age: 33 Occupation: Dairy Laboratory Technician Gender: Male PAST MEDICAL HISTORY Diagnosis Date COVID-19 05/2021 No past surgical history on file. Current Outpatient Medications Medication Sig Dispense Refill PNV no.95/ferrous fum/folic ac ( ORAL) Take by mouth. ferrous sulfate (IRON ORAL) Take by mouth. No current facility-administered medications for this visit. Allergies As of Date: 10/28/2024 (No Known Allergies) Fully Assessed 06/28/2021 Does patient have penicillin allergy: No REVIEW OF SYSTEMS: GENERAL: Negative for: Fever or Chills HEENT: Negative for: Headache, Impaired Vision, Ringing in Ears, Nosebleeds NECK: Negative for: Swelling, Pain, Stiffness RESPIRATORY: Negative for: Cough, Shortness of breath, Wheezing GASTROINTESTINAL: Negative for: Heartburn, Constipation, Diarrhea, Blood in stool + nausea MUSCULOSKELETAL: Negative for: Muscle or joint pain, stiffness, Joint swelling NEUROLOGIC/PSYCHIATRIC: Negative for: Weakness, Paralysis, Numbness, Tingling, Tremor, Anxiety, Depression, Memory loss SKIN: Negative for: Rash, Itching GENITOURINARY: Negative for: vaginal itching, vaginal discharge, hematuria or dysuria SENSITIVE EXAM: The sensitive examination was discussed with the Patient or Patient's Authorized Jewelsmith. As applicable, any other physician, advance practice provider, medical student, or other health professional student that will be observing or involved in the sensitive examination for educational or training purposes was discussed with the Patient or Authorized Jewelsmith. The Patient or Authorized Jewelsmith has agreed to proceed with the sensitive examination. (Sensitive examination includes inspection and/or palpation of the breasts, pelvis, prostate and anorectal regions). PHYSICAL EXAM: BP 112/70 Ht 5' 2.012" (1.58m) Wt 114 lb 12.8 oz (52.1kg) LMP 09/01/2024 BMI 20.99 kg/(m^2). GENERAL: pleasant in no apparent distress DERMATOLOGY: Normal, without lesions, non-icteric, and non-hirsute NECK: Supple, full range of motion, no adenopathy, and thyroid normal CHEST: Normal inspiratory effort BREAST: soft, non-tender, symmetric, no dominant mass, normal nipple-areolar complex, no lymphadenopathy, and no nipple discharge ABDOMEN: soft, non-tender, and no masses NEURO: alert and oriented x3,exam grossly non-focal PELVIS: External genitalia normal without lesions. Perineal body intact. No vaginal or cervical lesions. Cervix closed. Uterus 8 week size. No adnexal masses or tenderness. Clinical Pelvimetry: Pelvimetry clinically assessed as adequate Limited OB ultrasound exam: single intrauterine and positive cardiac activity ASSESSMENT: 29 year old at Unknown wks gestational age PLAN: 1) Patient oriented to practice. Patient given new OB orientation folder. Discussed nutrition, folic acid supplementation, dietary guidelines, exercise, smoking, alcohol, caffeine, and drug use. Discussed gestational weight gain guidelines. Discussed routine OB labs including STD/HIV. Discussed how to access Your guide to a health and the Fire Crew Worker. Discussed hemoglobin electrophoresis. Patient: Declines Reviewed midwifery and ice cream shop associate services that are available. 2) Screening: Hemoglobin A1C: ordered Baby Aspirin: The patient has been counseled about the potential benefits of low dose aspirin in and our recommendation that this be offered to all patients, regardless of whether they meet the high risk criteria specified above. She Accepts Aneuploidy Screening: Discussed aneuploidy screening, nuchal translucency/first trimester early anatomy ultrasound and NIPT. The risks/benefits and limitations of NIPT/aneuploidy screening were reviewed including the potential for false negative and false positive results. The availability of genetic counseling was reviewed. Information on aneuploidy screening was provided. The patient chooses to proceed with First trimester early anatomy ultrasound (12-13w6d) Myriad Carrier Screening: Discussed myriad carrier screening. We discussed the availability of professional-society guided carrier screening and reviewed the conditions screened and limitations of screening. The availability of genetic counseling was reviewed. Information on carrier screening was provided. The patient Declines 3) Patient offered option of Virtual Visits. Patient unsure. May consider in future. ACTIVE PROBLEM LIST Encounter for Supervision of High Risk in First Trimester, Antepartum (Hcc) - 10/28/2024 Comment: Care Checklist Vaccines: [] Flu vaccine [] declined [] RSV vaccine 32 0/7 - 36 6/7 (Mar - Aug) [] declined [] COVID vaccine [] declined [] TDaP 27-36 [] declined First trimester: [x] Dating US [] 1st tri labs [x] Pap smear [] Carrier screening [x] declined [] NIPT screening - considering [] declined [x] First trimester anatomy scan [] declined [x] universal ASA ordered (start 12w-16w) [] declined [] M Power Consult [] not indicated [] declined Second trimester: [] Anatomy scan [] Mode of Delivery - [] Feeding - [] Pump ordered [] Diabetes screen [] CBC, RPR [] Behavioral Health Screening Third trimester (28-30 weeks): [] Consent [] Contraception [] Cafeteria Table Attendant [] TeamBirth handout Third trimester (36-40 weeks): [] GBS [] Presentation - [] Scheduled [] yes - Hibiclens, pre-op instructions, CBC, T&S ordered [] no [] H&P [] Preferences worksheet Nausea and Vomiting During (Hcc) - 10/28/2024 Comment: 10/28/24 Vitamin B6 doses reviewed. To notify if prescription is needed. Travis Inman APRN.INTERVENTIONAL SALE CONSULTANT History of Vacuum Extraction Assisted Delivery - 10/28/2024 Comment: October 28, 2024 With first delivery. See scanned documents. Travis Inman APRN.INTERVENTIONAL SALE CONSULTANT History of Episiotomy - 10/28/2024 Comment: October 28, 2024 Right mediolateral with first delivery. See scanned documents. Travis Inman APRN.INTERVENTIONAL SALE CONSULTANT History of Oligohydramnios - 10/28/2024 Comment: October 28, 2024 With first , resulting in induction. Travis Inman APRN.INTERVENTIONAL SALE CONSULTANT Follow up in 4 weeks or sooner prn. Plan for NT scan between 12w0d and 13w6d gestation. Travis Inman APRN.INTERVENTIONAL SALE CONSULTANT documented in this encounter [facility] 10-28-2024 Instructions Eli Jimenez MA - 10/28/2024 9:27 AM EDT Please select the following link to access the [facility] Your Guide to a Healthy . [email or web address] documented in this encounter [facility] Evaluation note Diagnosis Encounter for supervision of high risk in first trimester, antepartum (HCC)- Primary 8 weeks gestation of (HCC) state, incidental with uncertain dates in first trimester (HCC) History of vacuum extraction assisted delivery Other postprocedural status History of oligohydramnios History of episiotomy Screen for STD (sexually transmitted disease) Screening examination for venereal disease Screening for cervical cancer Screening for malignant neoplasm of the cervix Nausea and vomiting during ([facility]) documented in this encounter [facility] note* Diagnosis Encounter for supervision of high risk in first trimester, antepartum ([facility])- Primary History of vacuum extraction assisted delivery Other postprocedural status History of abnormality in previous , currently , first trimester ([facility]) 12 weeks gestation of ([facility]) state, incidental * Assessment & Plan Note - Ophelia Epstein MD - 11/25/2024 3:53 PM EDT Associated Problem(s): Encounter for supervision of high risk in first trimester, antepartum ([facility]) * Assessment & Plan Note - Ophelia Epstein MD - 11/25/2024 3:53 PM EDT Associated Problem(s): History of vacuum extraction assisted delivery * Assessment & Plan Note - Ophelia Epstein MD - 11/25/2024 3:53 PM EDT Associated Problem(s): History of abnormality in previous , currently , first trimester ([facility]) Previous child with hirscheprung's and Oligo documented in this encounter [facility] note* Diagnosis Encounter for supervision of high risk in first trimester, antepartum ([facility])- Primary History of vacuum extraction assisted delivery Other postprocedural status History of abnormality in previous , currently , first trimester ([facility]) 12 weeks gestation of ([facility]) state, incidental Encounter for anatomic survey (HCC)- Primary Encounter for anatomic survey 19 weeks gestation of (HCC) state, incidental Supervision of high risk in second trimester (HCC)- Primary Unspecified high-risk 19 weeks gestation of (HCC) state, incidental Nausea and vomiting during (HCC) documented in this encounter [facility] note* Diagnosis Encounter for supervision of high risk in first trimester, antepartum (HCC)- Primary History of vacuum extraction assisted delivery Other postprocedural status History of abnormality in previous , currently , first trimester (HCC) 12 weeks gestation of (HCC) state, incidental Supervision of high risk in second trimester (HCC)- Primary Unspecified high-risk 19 weeks gestation of (HCC) state, incidental Nausea and vomiting during (HCC) * Assessment & Plan Note - Tori Vega MD - 01/14/2025 4:11 PM EDT Associated Problem(s): Supervision of high risk in second trimester (HCC) anatomy US pending * Assessment & Plan Note - Tori Vega MD - 01/14/2025 4:11 PM EDT Associated Problem(s): Nausea and vomiting during (HCC) resolved, not needing meds now documented in this encounter [facility] note* Diagnosis Encounter for supervision of high risk in first trimester, antepartum (HCC)- Primary History of vacuum extraction assisted delivery Other postprocedural status History of abnormality in previous , currently , first trimester (HCC) 12 weeks gestation of (HCC) state, incidental Supervision of high risk in second trimester (HCC)- Primary Unspecified high-risk 19 weeks gestation of (HCC) state, incidental Nausea and vomiting during ([facility]) Screening for diabetes mellitus- Primary 28 weeks gestation of ([facility]) state, incidental Supervision of high risk in second trimester ([facility]) Unspecified high-risk Need for vaccination Need for prophylactic vaccination and inoculation against unspecified single disease documented in this encounter [facility] Summary Purpose Family History No Family History Records Found No Known Family History Onset: 3 Status:Active No Known Family History Onset: 3 Status:Active No Known Family History Onset: 3 Status:Active Advance Directives No Advanced Directives Records FoundNo Advanced Directives Records FoundNo Advanced Directives Records FoundNo Advanced Directives Records FoundNo Advanced Directives Records Found Additional Source Comments INFORMATION SOURCE (unrecogn ized section and content) DATE CREATED AUTHOR 02/04/2020 [facility] DATE CREATED AUTHOR AUTHOR'S ORGANIZ ATION 03/10/2022 [facility] DATE CREATED AUTHOR AUTHOR'S ORGANIZ ATION 03/18/2023 [facility] DATE CREATED AUTHOR AUTHOR'S ORGANIZ ATION 10/13/2024 [facility] DATE CREATED AUTHOR AUTHOR'S ORGANIZ ATION 05/07/2025 [facility] Source Comments (unrecognize d section and content) In the event this informatio n is protected by the Federal Confidentiality of Alcohol and Drug Abuse Patient Records regulations: The Federal rules restrict any use of the information to criminally investigate or prosecute any alcohol or drug abuse patient.[facility] the event this information is protected by the Federal Confidentiality of Alcohol and Drug Abuse Patient Records regulations: The Federal rules restrict any use of the information to criminally investigate or prosecute any alcohol or drug abuse patient.[facility] the event this information is protected by the Federal Confidentiality of Alcohol and Drug Abuse Patient Records regulations: The Federal rules restrict any use of the information to criminally investigate or prosecute any alcohol or drug abuse patient.[facility] the event this information is protected by the Federal Confidentiality of Alcohol and Drug Abuse Patient Records regulations: The Federal rules restrict any use of the information to criminally investigate or prosecute any alcohol or drug abuse patient.[facility] the event this information is protected by the Federal Confidentiality of Alcohol and Drug Abuse Patient Records regulations: The Federal rules restrict any use of the information to criminally investigate or prosecute any alcohol or drug abuse patient.[facility] the event this information is protected by the Federal Confidentiality of Alcohol and Drug Abuse Patient Records regulations: The Federal rules restrict any use of the information to criminally investigate or prosecute any alcohol or drug abuse patient.[facility] Hospital[facility] the event this information is protected by the Federal Confidentiality of Alcohol and Drug Abuse Patient Records regulations: The Federal rules restrict any use of the information to criminally investigate or prosecute any alcohol or drug abuse patient.[facility] Reason for Visit (unrecogniz ed section and content) Reason Comments Initial OB Visit Reason Onset Date Comments Care 11/25/2024 Reason Comments FMLA Paperwork Reason Comments US Specialty Diagnoses / Procedures Referred By Bridger ponce Referred To Contact [facility] Diagnoses Encounter for supervision of high risk in first trimester, antepartum (HCC) Procedures OBSTETRIC ULTRASOUND WHI US PREG UTERUS AFTER 1ST TRIMEST GESTATION Travis Inman APRN.INTERVENTIONAL SALE CONSULTANT [address] [place] [address] Phone: tel: fax: [facility] [address] [place] [address] Referral ID Status Reason Start Date Expiration Date V isits Requested Visits Authorized [id number] Closed Auto-Generate d Referral 10/28/2024 10/28/2025 1 1 Reason Onset Date Comments Care 01/14/2025 Reason Onset Date Comments Care 03/17/2025 FOR RECORDS PERTAINING TO PATIENTS WHO ARE OR HAVE BEEN ENROLLED IN A CHEMICAL DEPENDENCY/SUBSTANCEABUSE PROGRAM, SOME INFORMATION MAY BE OMITTED. This clinical summary was aggregated from multiple sources. Caution should be exercised in using it in the provision of clinical care. This summary normalizes information from multiple sources, and as a consequence, information in this document may materially change the coding, format and clinical context of patient data. In addition, data may be omitted in some cases. CLINICAL DECISIONS SHOULD BE BASED ON THE PRIMARY CLINICAL RECORDS. [facility] provides no warranty or guarantee of the accuracy or completeness of information in this document.
--- OUTSIDE RECORDS SUMMARY | 2025-05-30 00:37 | XMS RPT_ITS | CCD ---
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 pallidum IgG+IgM IA Ql (S) Non-Reactive Normal Nonreactive [facility] Comment on above: Order Comment: Speci men Type: SWAB [facility] Address: [address] [place] [address] Performed By: #### T RVAMP, 29153-3 #### [facility] CLIA [id number] [address] [place] [address] [place] Reagin+T pallidum IgG+IgM Se rPl-Impon 03-17-2025 Reagin and Treponema pallidum IgG and IgM [Interp] Cannot exclude recent Treponemal infection if specimen collected within 7-10 days after appearance of suspect lesions or 2-3 weeks after an exposure. Clinical correlation is required. Normal [facility] Comment on above: Order Comment: Speci men Type: SWAB [facility] Address: [address] [place] [address] Performed By: #### T RVAMP, 52656-6 #### [facility] CLIA [id number] [address] [place] [address] [place] Examination level ultrasound [...] Method Transabdominal ultrasound examination. View: Adequate visualization Slaetr . Number of fetuses: 1 Dating LMP [...] 11 oz EFW by: Hadlock (HC-AC-FL) Extended Cook Chill Technician 6.3 mm CM 5.2 mm 62% Nicolaides [...] normal LVOT view: normal 3-vessel view: normal 6-frumea-ukfiqwa view: normal Heart / Thorax Situs: situs [...] By: Delilah Carrillo RDMS, RVT Read By: Lelsie Loya M.D. MATERNAL MEDICINE [facility] Radiology Study observation (narrative) [facility] ROBI MASTERS ([id number]) 1995 F Date Time Provider Department 12/01/24 OPHELIA EPSTEIN OBGYWM During your visit today, we recorded the following information about you: Primo Loyola MA 12/01/2024 8:43 AM Signed Received [place] paperwork. VALENTIN Goldsimth [place], [place] 12/10/2024 8:18 AM Signed [place] paperwork completed and faxed back to employer. Patient notified. Primo Loyola MA Allergies As of Date: 12/01/2024 (No Known Allergies) Date Reviewed: 11/25/2024 Reviewed by: Cindy Gomez MA - Fully Assessed Reason for Visit: FMLA Paperwork [[id number]] Prescriptions as of 12/10/2024 - aspirin, enteric [...] Status:Closed by PRIMO LOYOLA on 12/10/[address] [facility] CBC W Auto Differential pane l (Bld)on 11-25-2024 Basophils (Bld) [#/Vol] 10*3/uL Normal <0.11 [facility] Comment on above: Order Comment: Speci men Type: BLOOD SPECIMEN [facility] Address: [address] [place] [address] Performed By: #### 5 7021-8 #### [facility] CLIA [id number] [address] [place] [address] [place] Basophils/100 WBC (Bld) 0.3 % Normal [facility] Comment on above: Order Comment: Speci men Type: BLOOD SPECIMEN [facility] Address: [address] [place] [address] Performed By: #### 5 7021-8 #### [facility] CLIA [id number] [address] [place] [address] [place] Differential cell count method Nom (Bld) Auto Normal [facility] Comment on above: Order Comment: Speci men Type: BLOOD SPECIMEN [facility] Address: [address] [place] [address] Performed By: #### 5 7021-8 #### [facility] CLIA [id number] [address] [place] [address] [place] Eosinophils (Bld) [#/Vol] 0.03 10*3/uL Normal <0.46 [facility] Comment on above: Order Comment: Speci men Type: BLOOD SPECIMEN [facility] Address: [address] [place] [address] Performed By: #### 5 7021-8 #### [facility] CLIA [id number] [address] [place] [address] [place] Eosinophils/100 WBC (Bld) 0.5 % Normal [facility] Comment on above: Order Comment: Speci men Type: BLOOD SPECIMEN [facility] Address: [address] [place] [address] Performed By: #### 5 7021-8 #### [facility] CLIA [id number] [address] [place] [address] [place] Erythrocyte distribution width (RBC) [Ratio] 12.8 % Normal 11.5-15.0 [facility] Comment on above: Order Comment: Speci men Type: BLOOD SPECIMEN [facility] Address: [address] [place], [place] [address] Performed By: #### 5 7021-8 #### [facility] CLIA [id number] [address] [place] [address] [place] Hematocrit (Bld) [Volume fraction] 37.0 % Normal 36.0-46.0 [facility] Comment on above: Order Comment: Speci men Type: BLOOD SPECIMEN [facility] Address: [address] [place] [address] Performed By: #### 5 7021-8 #### [facility] CLIA [id number] [address] [place] [address] [place] Hemoglobin (Bld) [Mass/Vol] 12.4 g/dL Normal 11.5-15.5 [facility] Comment on above: Order Comment: Speci men Type: BLOOD SPECIMEN [facility] Address: [address] [place] [address] Performed By: #### 5 7021-8 #### [facility] CLIA [id number] [address] [place] [address] [place] Immature granulocytes (Bld) [#/Vol] 10*3/uL Normal <0.10 [facility] Comment on above: Order Comment: Speci men Type: BLOOD SPECIMEN [facility] Address: [address] [place] [address] Performed By: #### 5 7021-8 #### [facility] CLIA [id number] [address] [place] [address] [place] Immature granulocytes/100 WBC (Bld) 0.3 % Normal [facility] Comment on above: Order Comment: Speci men Type: BLOOD SPECIMEN [facility] Address: [address] [place] [address] Performed By: #### 5 7021-8 #### [facility] CLIA [id number] [address] [place] [address] [place] Lymphocytes (Bld) [#/Vol] 1.31 10*3/uL Normal 1.00-4.00 [facility] Comment on above: Order Comment: Speci men Type: BLOOD SPECIMEN [facility] Address: [address] [place] [address] Performed By: #### 5 7021-8 #### [facility] CLIA [id number] [address] [place] [address] [place] Lymphocytes/100 WBC (Bld) 21.3 % Normal [facility] Comment on above: Order Comment: Speci men Type: BLOOD SPECIMEN [facility] Address: [address] [place] [address] Performed By: #### 5 7021-8 #### [facility] CLIA [id number] [address] [place] [address] [place] MCH (RBC) [Entitic mass] 28.6 pg Normal 26.0-34.0 [facility] Comment on above: Order Comment: Speci men Type: BLOOD SPECIMEN [facility] Address: [address] [place] [address] Performed By: #### 5 7021-8 #### [facility] CLIA [id number] [address] [place] [address] [place] MCHC (RBC) [Mass/Vol] 33.5 g/dL Normal 30.5-36.0 [facility] Comment on above: Order Comment: Speci men Type: BLOOD SPECIMEN [facility] Address: [address] [place] [address] Performed By: #### 5 7021-8 #### [facility] CLIA [id number] [address] [place] [address] [place] MCV (RBC) [Entitic vol] 85.5 fL Normal 80.0-100.0 [facility] Comment on above: Order Comment: Speci men Type: BLOOD SPECIMEN [facility] Address: [address] [place] [address] Performed By: #### 5 7021-8 #### [facility] CLIA [id number] [address] [place] [address] [place] Monocytes (Bld) [#/Vol] 0.25 10*3/uL Normal <0.87 [facility] Comment on above: Order Comment: Speci men Type: BLOOD SPECIMEN [facility] Address: [address] [place] [address] Performed By: #### 5 7021-8 #### [facility] CLIA [id number] [address] [place] [address] [place] Monocytes/100 WBC (Bld) 4.1 % Normal [facility] Comment on above: Order Comment: Speci men Type: BLOOD SPECIMEN [facility] Address: [address] [place] [address] Performed By: #### 5 7021-8 #### [facility] CLIA [id number] [address] [place] [address] [place] Neutrophils (Bld) [#/Vol] 4.53 10*3/uL Normal 1.45-7.50 [facility] Comment on above: Order Comment: Speci men Type: BLOOD SPECIMEN [facility] Address: [address] [place] [address] Performed By: #### 5 7021-8 #### [facility] CLIA [id number] [address] [place] [address] [place] Neutrophils/100 WBC (Bld) 73.5 % Normal [facility] Comment on above: Order Comment: Speci men Type: BLOOD SPECIMEN [facility] Address: [address] [place] [address] Performed By: #### 5 7021-8 #### [facility] CLIA [id number] [address] [place] [address] [place] Nucleated RBC (Bld) [#/Vol] 10*3/uL Normal <0.01 [facility] Comment on above: Order Comment: Speci men Type: BLOOD SPECIMEN [facility] Address: [address] [place] [address] Performed By: #### 5 7021-8 #### [facility] CLIA [id number] [address] [place] [address] [place] Nucleated RBC/100 WBC (Bld) [Ratio] 0.0 /[address] [facility] Comment on above: Order Comment: Speci men Type: BLOOD SPECIMEN [facility] Address: [address] [place] [address] Performed By: #### 5 7021-8 #### [facility] CLIA [id number] [address] [place] [address] [place] Platelet mean volume (Bld) [Entitic vol] 9.1 fL Normal 9.0-12.7 [facility] Comment on above: Order Comment: Speci men Type: BLOOD SPECIMEN [facility] Address: [address] [place] [address] Performed By: #### 5 7021-8 #### [facility] CLIA [id number] [address] [place] [address] [place] Platelets (Bld) [#/Vol] 217 10*3/uL Normal 150-400 [facility] Comment on above: Order Comment: Speci men Type: BLOOD SPECIMEN [facility] Address: [address] [place] [address] Performed By: #### 5 7021-8 #### [facility] CLIA [id number] [address] [place] [address] [place] RBC (Bld) [#/Vol] 4.33 10*6/uL Normal 3.90-5.20 [facility] Comment on above: Order Comment: Speci men Type: BLOOD SPECIMEN [facility] Address: [address] [place] [address] Performed By: #### 5 7021-8 #### [facility] CLIA [id number] [address] [place] [address] [place] WBC (Bld) [#/Vol] 6.16 10*3/uL Normal 3.70-11.00 [facility] Comment on above: Order Comment: Speci men Type: BLOOD SPECIMEN [facility] Address: [address] [place] [address] Performed By: #### 5 7021-8 #### [facility] CLIA [id number] [address] [place] [address] [place] HBV surface Ag Ser Qlon 10-30 HBV surface Ag Ql (S) Negative Normal Negative [facility] Comment on above: Order Comment: Speci men Type: BLOOD SPECIMEN [facility] Address: [address] [place] [address] Performed By: #### 5 195-3, 84492-0, 81121-8 #### [facility] CLIA [id number] [address] [place] [address] [place] HCV Ab Ser Qlon 11-25-2024 HCV Ab Ql (S) Negative Normal Negative [facility] Comment on above: Order Comment: Speci men Type: BLOOD SPECIMEN [facility] Address: [address] [place] [address] Result Comment: The result suggests no evidence of infection with Hepatitis C virus. Should recent infection be suspected, repeat testing may be considered 4-6 weeks after this draw. Performed By: #### 1 6128-1 #### [facility] CLIA [id number] [address] [place] [address] [place] HIV 1+2 Ab IA Qlon HIV 1 and 2 Ab IA.rapid Nom (S/P/Bld) Normal [facility] Comment on above: Order Comment: Speci men Type: BLOOD SPECIMEN [facility] Address: [address] [place] [address] Result Comment: Test not indicated. Performed By: #### 5 195-3, 70659-4, 72773-9 #### [facility] CLIA [id number] [address] [place] [address] [place] HIV 1+2 Ab+HIV1 p24 Ag IA Ql Non-Reactive Normal Nonreactive [facility] Comment on above: Order Comment: Speci men Type: BLOOD SPECIMEN [facility] Address: [address] [place] [address] Performed By: #### 5 195-3, 90398-3, 02074-3 #### [facility] CLIA [id number] [address] [place] [address] [place] HIV immunoassay testing algorithm interpretation (S/P/Bld) [Interp] Normal [facility] Comment on above: Order Comment: Speci men Type: BLOOD SPECIMEN [facility] Address: [address] [place] [address] Result Comment: No e vidence of HIV-1 or HIV-2 infection. Should recent infection be suspected, repeat testing may be considered 2-3 weeks after this draw. Slope Rev. Code 3701.243(E): This information has been [...] or diagnoses. Performed By: #### 5 195-3, 40578-7, 99116-8 #### [facility] CLIA [id number] [address] [place] [address] [place] HbA1c (Bld)on 11-25-2024 Average glucose Estimated from glycated hemoglobin (Bld) [Mass/Vol] 100 mg/dL Normal [facility] Comment on above: Order Comment: Speci men Type: SWAB [facility] Address: [address] [place] [address] Result Comment: eAG: (Estimated average glucose) is a calculated value from HgbA1c and is insurance representative of the average blood glucose level in the last 2-3 month period. Performed By: #### T RVAMP, 60251-3 #### [facility] CLIA [id number] [address] [place] [address] [place] HbA1c (Bld) [Mass fraction] 5.1 % Normal 4.3-5.6 [facility] Comment on above: Order Comment: Speci [facility] Type: SWAB [facility] Address: [address] [place] [address] Result Comment: [place] Diabetes Association guidelines indicate that patients with HgbA1c in the range 5.7-6.4% are at increased risk for development of diabetes, and intervention by lifestyle modification may be beneficial. HgbA1c greater or equal to 6.5% is considered diagnostic of diabetes. Performed By: #### T RVAMP, 41042-5 #### [facility] CLIA [id number] [address] [place] [address] [place] RUBELLA IGG ANTIBODYon 11-25 RUBELLA IGG AB, QUAL Positive Normal Positive [facility] Comment on above: Order Comment: Speci [facility] Type: BLOOD SPECIMEN [facility] Address: [address] [place] [address] Result Comment: The result suggests recent or past exposure to Rubella virus or history of Rubella vaccination. Positive result may also be seen due to presence of passively-transferred antibodies. Please correlate with patient's history. Performed By: #### R UBIGG #### [facility] CLIA [id number] [address] [place] [address] [place] Reagin and Treponema pallidu m IgG and IgM [Interp]on 11-25-2024 T. pallidum IgG+IgM IA Ql (S) Non-Reactive Normal Nonreactive [facility] Comment on above: Order Comment: Speci men Type: BLOOD SPECIMEN [facility] Address: [address] [place] [address] Performed By: #### 5 195-3, 16497-8, 50364-9 #### [facility] CLIA [id number] [address] [place] [address] [place] Reagin+T pallidum IgG+IgM Se rPl-Impon 11-25-2024 Reagin and Treponema pallidum IgG and IgM [Interp] Cannot exclude recent Treponemal infection if specimen collected within 7-10 days after appearance of suspect lesions or 2-3 weeks after an exposure. Clinical correlation is required. Normal [facility] Comment on above: Order Comment: Speci men Type: BLOOD SPECIMEN [facility] Address: [address] [place] [address] Performed By: #### 5 195-3, 05533-1, 52408-9 #### [facility] CLIA [id number] [address] [place] [address] [place] TYPE + SCREEN PRENATALon ABO O Normal [facility] Comment on above: Order Comment: Speci men Type: BLOOD SPECIMEN [facility] Address: [address] [place] [address] Performed By: #### 5 7021-8 #### [facility] CLIA [id number] [address] [place] [address] [place] Rh Nom (Bld) Positive Normal [facility] Comment on above: Order Comment: Speci men Type: BLOOD SPECIMEN [facility] Address: [address] [place] [address] Performed By: #### 5 7021-8 #### [facility] CLIA [id number] [address] [place] [address] [place] TYPE AND SCREEN EXPIRATION 11/28/2024 23:[address] [facility] Comment on above: Order Comment: Speci men Type: BLOOD SPECIMEN [facility] Address: [address] [place] [address] Performed By: #### 5 7021-8 #### [facility] CLIA [id number] [address] [place] [address] [place] Bacteria Ur Culton Bacteria identified Cx Nom (U) CULTURE, URINE: No growth (<1,000 CFU/ml) Normal [facility] Comment on above: Performed By: #### 5 7021-8 #### [facility] CLIA [id number] [address] [place] [address] [place] C. trachomatis+N. gonorrhoea e DNA TALITA+probe Ql (Unsp spec)on 10-28-2024 C. trachomatis rRNA TALITA+probe Ql (Unsp spec) Not detected Normal Not detected [facility] Comment on above: Order Comment: Speci men Type: SWAB [facility] Address: [address] [place] [address] Performed By: #### T RVAMP, 53059-9 #### [facility] CLIA [id number] [address] [place] [address] [place] N. gonorrhoeae rRNA TALITA+probe Ql (Unsp spec) Not detected Normal Not detected [facility] Comment on above: Order Comment: Speci men Type: SWAB [facility] Address: [address] [place] [address] Performed By: #### T RVAMP, 96733-3 #### [facility] CLIA [id number] [address] [place] [address] [place] PAP TESTon 10-28-[address] [facility] Comment on above: Order Comment: Speci men Type: BLOOD SPECIMEN [facility] Address: [address] [place] [address] Result Comment: Sati sfactory for interpretation. Transformation zone present Performed By: #### 5 7021-8 #### [facility] CLIA [id number] [address] [place] [address] [place] CASE REPORT Normal [facility] Comment on above: Order Comment: Speci men Type: BLOOD SPECIMEN [facility] Address: [address] [place] [address] Result Comment: Gyne cologic Cytology Report Case: [id number] Authorizing Provider: Travis Inman APRN.AUTOMATIC LOG CUT OFF SAWYER Collected: 10/28/2024 10:18 AM Ordering Location: OB/Gynecology Received: 10/28/2024 11:50 AM First Screen: Sarah, Love, CT, ASCP Specimen: Pap Test, ThinPrep, Cervix Performed By: #### 5 7021-8 #### [facility] CLIA [id number] [address] [place] [address] [place] CLINICAL HISTORY, CYTOLOGY, THIRD HELPER Routine Exam Normal [facility] Comment on above: Order Comment: Speci men Type: BLOOD SPECIMEN [facility] Address: [address] [place] [address] Performed By: #### 5 7021-8 #### [facility] CLIA [id number] [address] [place] [address] [place] FINAL PERFORMING LAB Normal [facility] Comment on above: Order Comment: Speci men Type: BLOOD SPECIMEN [facility] Address: [address] [place] [address] Result Comment: Tech nical component, automation consultant screening performed at: [facility], [address] [place] [address] CLIA: [id number] Diagnostic interpretation performed at: [facility], [address] [place] [address] CLIA# [id number] Email Engineer: Francisco J Main MD Performed By: #### 5 7021-8 #### [facility] CLIA [id number] [address] [place] [address] [place] INTERPRETATION, CYTOLOGY, THIRD HELPER Normal [facility] Comment on above: Order Comment: Speci men Type: BLOOD SPECIMEN [facility] Address: [address] [place] [address] Result Comment: Nega tive for intraepithelial lesion or malignancy. at 1159 EDT Performed By: #### 5 7021-8 #### [facility] CLIA [id number] [address] [place] [address] OF JASS LMP 09/01/[address] [facility] Comment on above: Order Comment: Speci men Type: BLOOD SPECIMEN [facility]ing Facility[facility] Address: [address] [place] [address] Performed By: #### 5 7021-8 #### [facility] CLIA [id number] [address] [place] [address] PAP DISCLAIMER COMMENT The Pap Smear is a screening test for cervical cancer. False negative results occur with all screening tests, emphasizing the need for rescreening at recommended intervals, and clinical correlation. Normal [facility] Comment on above: Order Comment: Speci men Type: BLOOD SPECIMEN [facility]ing Facility[facility] Address: [address] [place] [address] Performed By: #### 5 7021-8 #### [facility] CLIA [id number] [address] [place] [address] PAP PEDIATRICS TEACHER COMMENT This specimen has been analyzed by the ThinPrep Imaging System, an automated imaging and review system, which assists the laboratory in evaluating cells on ThinPrep Pap tests. Following automated imaging, selected raymundo from every slide are reviewed by a automation consultant. Normal [facility] Comment on above: Order Comment: Speci men Type: BLOOD SPECIMEN [facility] Address: [address] [place] [address] Performed By: #### 5 7021-8 #### [facility] CLIA [id number] [address] [place] [address] [place] POC SAND SHOVELER ULTRASOUNDon 10-29-19 Indication Viability; confirm cardiac activity Impression Single [...] Read By: Travis Inman NP MATERNAL MEDICINE [facility] Radiology Study observation (narrative) [facility] TRICHOMONAS VAGINALIS NAATon 10-28-2024 T. vaginalis DNA TALITA+probe Ql (Unsp spec) Not detected Normal Not detected [facility] Comment on above: Order Comment: Speci men Type: SWAB [facility]ing [facility] Address: [address] [place] [address] Performed By: #### T RVAMP, 89746-6 #### [facility] CLIA [id number] [address] [place] [address] [place] Laboratory - Chemistry and C hemistry - challengeon 10-12-2024 Beta HCG ( test) Ql (U) Positive Abnormal [facility] Office Visit Reporton 2024 Office Visit Report [address] 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 Allergies No Known Allergies Allergy (Verified 10/07/24 09:14) 10/07/24 0956 Date Rolando Quintana Signature: Date (if applicable) CC: Normal [facility] Office Visit Reporton 2023 Office Visit Report [facility] [address] [place] [address] OFFICE VISIT Date of Service: 09/26/23 MR#: [id number] Acct: [id number] Patient: ROBI MASTERS Rep #: [id number] : 1995 Provider: CAROLINE Bajwa Age/Sex: 29/F Location: [facility] [place] Status: Signed Intake Vital Signs 06/16/21 15:42 09/25/23 11:59 Height 5 ft 1 in 5 ft 1 in Intake Visit Reasons: RESPIRATORY QUEST/FIT TEST Allergies No Known Allergies Allergy (Verified 06/19/21 10:32) Office Procedures [facility] Billing Sheet Testing Respirator Fit Testing: Yes 03/30/24 1707 Date Reg Quintana Signature: Date (if applicable) CC: Normal [facility] Laboratory - Microbiology an d Antimicrobial susceptibilityon 08-12-2023 FLUAV Ag IA Ql (Throat) Negative Normal [email or web address]. S. pyogenes Ag EIA Ql (Throat) Negative Normal [facility] [employer] SARS-CoV-2 (COVID-19) RNA TALITA+probe Ql (Unsp spec) Negative Normal [employer], [email or web address]. EMERGENCY REPORTon 3 EMERGENCY REPORT [facility] EMERGENCY ROOM REPORT NAME ACCOUNT SEX AGE ADMIT DISCHARGE PT MED. RECORD# NUMBER DATE DATE TYPE ROBI MASTERS [id number] F 27 03/13/23 03/13/23 3 [id number] ROOM: ER DATE OF : 1995 DICTATING [...] ROBI MASTERS Emergency Room Report ROBI MASTERS : 1995 versus garage door. Dictated By: Daron Lehman DO 03/13/23 23:55 JOB #: [id number] Transcribed By: am 03/14/23 12:20 Electronically signed by: MILTON Lehman DO 03/17/23 12:04 Page 2 of 2 ROBI MASTERS Emergency Room Report Normal [facility] ANKLE COMPLETE RTon 03-13-20 23 ANKLE COMPLETE RT [address] [address] Patient: SONAMSTEPHANIEEL Phone#: : 1995 Age: 27 Gender: F Pt. Type: ER Account: [id number] Location: 052 Ordering: DR. JAYCE BUCKNER Exam Date: 03/13/2023/18:50 Family Phys: TORI ESTRADA Charge Code: 545479 Physician: Starke Order #: [id number] Dose#: PROCEDURE: X-RAY ANKLE COMPLETE RT MIN [...] Womack MD on 03/14/2023 at 8:[address] [facility] FOOT COMPLETE RTon FOOT COMPLETE RT [place] [address] Patient: ROBI MASTERS Phone#: : 1995 Age: 27 Gender: F Pt. Type: ER Account: [id number] Location: 052 Ordering: DR. JAYCE BUCKNER Exam Date: 03/13/2023/18:55 Family Phys: TORI ESTRADA Charge Code: 000804 Physician: Starke Order #: [id number] Dose#: PROCEDURE: X-RAY FOOT RT COMPLETE MIN 3 VIEWS COMPARISON: None. INDICATIONS: Pain. FINDINGS: BONES: Normal. No significant arthropathy or acute abnormality. SOFT TISSUES: Negative. No visible soft tissue swelling. EFFUSION: None visible. OTHER: Negative. CONCLUSION: No acute disease. Dictated by: Dia Womack MD on 03/14/2023 at 8:53 Approved by: Dia Womack MD on 03/14/2023 at 8:[address] [facility] BV/VAGINITIS PANEL DNA PROBE on 03-09-2022 MARIFER: Detected Abnormal NOT DETECTED [facility] Comment on above: Performed By: #### 3 48, 23674 #### [facility] of [address], [address] [place] [address] [employer] Section: Ralph Salgueor MD GARDNERELLA: Not detected Normal NOT DETECTED [facility] Comment on above: Performed By: #### 3 , 52139 #### [facility] [address], [address] [place] [address] [employer] Section: Ralph Salguero MD TRICHOMONAS: Not detected Normal NOT DETECTED [facility] Comment on above: Performed By: #### 3 , 35302 #### [facility] [address], [address] [place] [address] [employer] Section: Ralph Salguero MD CULTURE, URINE, ROUTINEon CULTURE, URINE, ROUTINE SEE NOTE Abnormal [facility] Comment on above: Result Comment: CULTURE, URINE, ROUTINE Micro Number: [id number] Test Status: Final Specimen Source: Vag Specimen [...] management of women. Performed By: #### 3 , 47229 #### [facility] of [address], [address] [place] [address] Detective [employer] Section: Ralph Salguero MD Laboratory - Chemistry and C hemistry - challengeon 03-07-2022 Bilirubin Ql (U) small Abnormal [facility] Ketones Ql (U) trace Normal [facility] pH (U) 6.0 [pH] Normal [facility] Specific gravity (U) [Rel density] >=1.030 Normal [employer]. Urobilinogen Qn (U) 0.2 mg/dL Normal [facility] [employer]. Laboratory - Hematology and Cell countson 03-07-2022 Hemoglobin Ql (U) Negative Normal [employer]. Laboratory - Specimen inform ationon 03-07-2022 Appearance (U) clear Normal [facility] [employer]. Color (U) yellow Normal [employer]. Laboratory - Urinalysison Glucose Test strip (U) [Mass/Vol] Negative Normal [employer]. Leukocyte esterase Test strip Ql (U) trace Normal [place] [employer]. Nitrite Ql (U) Negative Normal [facility] [employer]. Protein Ql (U) trace Normal [facility] [employer]. No Panel Informationon 03-07 MARIFER: Detected Abnormal [place] [employer]; [employer] CULTURE, URINE, ROUTINE SEE NOTE Abnormal [employer]. GARDNERELLA: Not detected Normal [facility] [employer]. TRICHOMONAS: Not detected Normal [facility] [employer]; [employer]. Progress Noteon 02-01-2020 [employer] Authentication Interface Message Text Maternal Medicine Consult [...] on phone: None Gets together: None Attends buddhist service: None Active member of club or [...] No Muscular Dystrophy No Cystic Fibrosis No Bexar's Chorea No Intellectual Disability/Autism No Metabolic Disorder [...] mg by mouth 2 times daily Vit w/Gd-Prwzymppa-BL (PNV PO) Take by mouth No facility-administere [...] was spent counseling and coordinating care. Normal [facility] Vital Signs Date Time Vital Sign Value Performing Clinician Facility 03-17-2025 10:38-0400 Body mass index (BMI) [Ratio] 21.65 kg/m2 Yarely Brady MD Work Phone: [facility] 03-17-2025 10:38-0400 Body weight 53.71 kg Yarely Brady MD Work Phone: [facility] 03-17-2025 10:38-0400 Diastolic blood pressure 80 mm[Hg] Yarely Brady MD Work Phone: [facility] 03-17-2025 10:38-0400 Systolic blood pressure 120 mm[Hg] Yarely Brady MD Work Phone: [facility] 01-14-2025 15:47-0400 Body mass index (BMI) [Ratio] 20.48 kg/m2 Tori Vega MD Work Phone: [facility] 01-14-2025 15:47-0400 Body weight 50.8 kg Tori Vega MD Work Phone: [facility] 01-14-2025 15:47-0400 Diastolic blood pressure 58 mm[Hg] Tori Vega MD Work Phone: [facility] 01-14-2025 15:47-0400 Systolic blood pressure 96 mm[Hg] Tori Vega MD Work Phone: [facility] 11-25-2024 15:14-0400 Body mass index (BMI) [Ratio] 20.66 kg/m2 Ophelia Lopez MD Work Phone: [facility] 11-25-2024 15:14-0400 Body weight 51.26 kg Ophelia Lopez MD Work Phone: [facility] 11-25-2024 15:14-0400 Diastolic blood pressure 60 mm[Hg] Ophelia Lopez MD Work Phone: [facility] 11-25-2024 15:14-0400 Systolic blood pressure 98 mm[Hg] Ophelia Lopez MD Work Phone: [facility] 10-28-2024 09:46-0400 Body height 157.5 cm Travis Haury [employer] Work Phone: [facility] 10-28-2024 09:46-0400 Body mass index (BMI) [Ratio] 20.99 kg/m2 Travis Haury [employer] Work Phone: [facility] 10-28-2024 09:46-0400 Body weight 52.07 kg Travis Haury [employer] Work Phone: [facility] 10-28-2024 09:46-0400 Diastolic blood pressure 70 mm[Hg] Travis Haury [employer] Work Phone: [facility] 10-28-2024 09:46-0400 Systolic blood pressure 112 mm[Hg] Travis Haury [employer] Work Phone: [facility] 10-12-2024 11:20-0400 Body height 160.02 cm Caren Solo LPN [facility], [facility].; [facility]. 10-12-2024 11:20-0400 Body mass index (BMI) [Ratio] 20.37 kg/m2 Caren Solo LPN [facility], [facility].; [facility] 10-12-2024 11:20-0400 Body surface area Derived from formula 1.53 m2 Caren Solo LPN [facility], [facility].; [facility]. 10-12-2024 11:20-0400 Body temperature 98.5 [degF] Caren Hernandez Germania PHY THERAPIST [facility].; [employer]. Comment on above: Method: Tympanic 10-12-2024 11:20-0400 Body weight 52.16 kg Caren M eGrmania CROWDER [facility].; [employer]. 10-12-2024 11:20-0400 Diastolic blood pressure 61 mm[Hg] Caren Hernandez Germania CROWDER [facility].; [employer]. Comment on above: Patient Position: Sitting; Cuff Location : Left Arm; Cuff Size: Standard 10-12-2024 11:20-0400 Heart rate 56 /min Caren Solo LPN [facility].; [employer]. Comment on above: Pattern: Regular 10-12-2024 11:20-0400 Inhaled oxygen concentration 21 % Caren Solo LPDesoto [facility] HospitalACE Portal [facility].; [employer]. Comment on above: Room air 10-12-2024 11:20-0400 SaO2% (BldA) [Mass fraction] 100 % Caren David Germania PHY THERAPIST [place] [employer] [facility].; [employer]. 10-12-2024 11:20-0400 Systolic blood pressure 97 mm[Hg] Caren M Germania CROWDER [place] [employer] [facility].; [employer]. Comment on above: Patient Position: Sitting; Cuff Location : Left Arm; Cuff Size: Standard 08-12-2023 11:51-0500 Body height 160.[address] RN [place] [employer] [facility].; [employer]. 08-12-2023 11:51-0500 Body mass index (BMI) [Ratio] 19.49 kg/m2 Bambi [address] RN [place] [employer] [facility].; [employer]. 08-12-2023 11:51-0500 Body surface area Derived from formula 1.[address] RN [place] [employer] [facility].; [employer]. 08-12-2023 11:51-0500 Body temperature 97.9 [degF] Bambi [address] RN [place] [employer] [facility].; [employer]. Comment on above: Method: Tympanic 08-12-2023 11:51-0500 Body weight 49.[address] RN [place] [employer].; [employer] 08-12-2023 11:51-0500 Diastolic blood pressure 59 mm[Hg] Bambi Street RN [employer].; [employer]. Comment on above: Patient Position: Sitting; Cuff Location : Left Arm; Cuff Size: Standard 08-12-2023 11:51-0500 Heart rate 64 /min Bambi Street RN [place] [employer]. Comment on above: Pattern: Regular 08-12-2023 11:51-0500 Inhaled oxygen concentration 20 % Bambi [address] RN [employer].; [employer]. Comment on above: Room air 08-12-2023 11:51-0500 Inhaled oxygen concentration 21 % Bambi [address] RN [employer]. Comment on above: Room air 08-12-2023 11:51-0500 SaO2% (BldA) [Mass fraction] 99 % Bambi [address] RN [place] [employer].; [employer]. 08-12-2023 11:51-0500 Systolic blood pressure 93 mm[Hg] Bambi Street RN [employer].; [employer]. Comment on above: Patient Position: Sitting; Cuff Location : Left Arm; Cuff Size: Standard 03-20-2023 13:03-0400 Body height 160.02 cm Radha Gomez MA [employer] [facility].; [employer]. 03-20-2023 13:03-0400 Body mass index (BMI) [Ratio] 18.95 kg/m2 Radha Gomez MA [place] [employer].; [employer]. 03-20-2023 13:03-0400 Body surface area Derived from formula 1.48 m2 Radha Gomez MA [facility] [place] [employer] 03-20-2023 13:03040 Body weight 48.54 kg Radha Gomez MA [facility], [facility].; [employer] 03-20-2023 13:03-0400 Diastolic blood pressure 68 mm[Hg] Radha Gomez MA [facility], [facility].; [employer] Comment on above: Patient Position: Sitting; Cuff Location : Left Arm; Cuff Size: Standard 03-20-2023 13:03-0400 Heart rate 73 /min Radha Gomez MA [facility], [facility].; [employer] Comment on above: Pattern: Regular 03-20-2023 13:03-0400 Systolic blood pressure 106 mm[Hg] Radha Gomez MA [facility], [facility].; [employer] Comment on above: Patient Position: Sitting; Cuff Location : Left Arm; Cuff Size: Standard 03-07-2022 13:55-0400 Body height 160.02 cm Huong Turner LPN [facility], [facility].; [place] [employer] [facility], [facility]. 03-07-2022 13:55-0400 Body mass index (BMI) [Ratio] 20.19 kg/m2 Huong Turner LPN [facility], [facility].; [employer] 03-07-2022 13:55-0400 Body surface area Derived from formula 1.52 m2 Huong Turner LPN [facility], [facility].; [employer] 03-07-2022 13:55-0400 Body temperature 98.6 [degF] Huong Turner LPN [facility].; [employer], [email or web address]. Comment on above: Method: Tympanic 03-07-2022 13:55-0400 Body weight 51.71 kg Huong Turner LPN [facility], [facility].; [employer] 03-07-2022 13:55-0400 Diastolic blood pressure 71 mm[Hg] Huong Turner LPN [facility], [facility].; [employer]. Comment on above: Patient Position: Sitting; Cuff Location : Left Arm; Cuff Size: Standard 03-07-2022 13:55-0400 Heart rate 75 /min Huong Turner LPN [facility].; [employer]. Comment on above: Pattern: Regular 03-07-2022 13:55-0400 Systolic blood pressure 113 mm[Hg] Huong Turner LPN [facility] [employer].; [employer]. Comment on above: Patient Position: Sitting; Cuff Location : Left Arm; Cuff Size: Standard 05-31-2021 09:16-0500 Body height 160.02 cm Tori Estrada PA-C Work Phone: [facility] [employer].; [employer]. 05-31-2021 09:16-0500 Body mass index (BMI) [Ratio] 18.78 kg/m2 Tori Estrada PA-C Work Phone: [employer].; [employer]. 05-31-2021 09:16-0500 Body surface area Derived from formula 1.48 m2 Tori Estrada PA-C Work Phone: [employer].; [employer]. 05-31-2021 09:16-0500 Body weight 48.08 kg Tori Estrada PA-C Work Phone: [employer].; [employer]. 05-31-2021 09:16-0500 Diastolic blood pressure 72 mm[Hg] Tori Estrada PA-C Work Phone: [employer].; [employer]. Comment on above: Patient Position: Sitting; Cuff Location : Left Arm; Cuff Size: Standard 05-31-2021 09:16-0500 Heart rate 69 /min Tori Estrada PA-C Work Phone: [employer].; [employer]. Comment on above: Pattern: Regular 05-31-2021 09:16-0500 Systolic blood pressure 117 mm[Hg] Tori Estrada PA-C Work Phone: [facility], [facility].; [facility], [facility]. Comment on above: Patient Position: Sitting; Cuff Location : Left Arm; Cuff Size: Standard Encounters Encounter Date Encounter Type Care Provider Facility Start: 05-05-2025 End: 05-05-2025 ambulatory TORI VEGA Facility:[facility] Start: 04-21-2025 End: 04-21-2025 ambulatory YARELY BRIAN Facility:[facility] Start: 04-14-2025 End: 04-14-2025 ambulatory YARELY ADENWIN Facility:[facility] Start: 03-24-2025 End: 03-24-2025 ambulatory YARELY BRADY Facility:[facility] Start: 03-17-2025 End: 03-17-2025 ambulatory YARELYSINGH BRADY Facility:[facility] Start: 03-17-2025 End: 03-17-2025 Patient encounter procedure Yarely Brady MD Work Phone: OB/Gynecology Comment on above: Screening for diabet es mellitus (Primary Dx); 28 weeks gestation of (HCC); Supervision of high risk in second trimester (HCC); Need for vaccination Start: 01-14-2025 End: 01-14-2025 ambulatory TORI VEGA Facility:[facility] Start: 01-14-2025 End: 01-14-2025 Patient encounter procedure [employer] Maternal Medicine Comment on [...] of (HCC) Start: 11-25-2024 End: 11-25-2024 ambulatory TRAVISJESSE INMAN Facility:[facility] Start: 11-02-2024 End: 01-02-2025 Follow-up encounter Travis Garciarodrigo BECKMANAUTOMATIC LOG CUT OFF [employer]ER Work Phone: OB/Gynecology Start: 10-28-2024 End: 10-28-2024 Patient encounter procedure Travis Garciarodrigo BECKMANAUTOMATIC LOG CUT OFF [employer] Work Phone: OB/Gynecology Comment on above: Encounter [...] during (HCC) Start: 10-28-2024 End: 10-28-2024 ambulatory [facility] Facility:[facility] Start: 10-12-2024 End: 10-12-2024 Office outpatient visit 15 minutes Tori Estrada PA-C Work Phone: [employer]. Start: 10-07-2024 End: 10-07-2024 ambulatory Tori Estrada Facility:[facility] Start: 08-12-2023 End: 08-12-2023 Office outpatient visit 15 minutes Tori Estrada PA-C Work Phone: [employer]. Start: 03-20-2023 End: 03-20-2023 Periodic preventive med est patient 18-39 yrs Tori Estrada PA-C Work Phone: [employer]. Start: 03-20-2023 End: 03-20-2023 Physical examination Tori Estrada PA-C Work Phone: [employer]; [employer]. Start: 03-13-2023 End: 03-13-2023 Emergency department patient visit JAYCE GAMBOA [facility] Start: 03-09-2022 End: 03-09-2022 Medication Tori VELAZQUEZ-C Work Phone: [facility] [employer]. Start: 03-07-2022 End: 03-07-2022 Office outpatient visit 15 minutes Tori VELAZQUEZ-C Work Phone: [employer]. Start: 05-31-2021 End: 05-31-2021 Office outpatient new 30 minutes Tori VELAZQUEZ-C Work Phone: [employer] Physical examination Tori VELAZQUEZ-C Work Phone: [facility] [employer]; [facility] Procedures Date Procedure Procedure Detail Performing Clinician Start: 01-14-2025 Us preg uterus after 1st trimest 1/ gestation Travis Inman APRN.[employer] C[employer] Work Phone: Start: 11-25-2024 Antibody screen TORI VEGA Comment on above: Order Comment: Speci men Type: BLOOD SPECIMEN [facility] Address: [address] [place] [address] Performed By: #### 5 7021-8 #### [facility] [id number] [address] [place] [address] [place] Start: 10-28-2024 Us uterus limited 1/> fetuses Travis Inman APRN.AUTOMATIC LOG CUT [employer] Work Phone: Start: 03-20-2023 End: 03-20-2023 Depression screening Tori VELAZQUEZ-C Work Phone: Start: 03-20-2023 End: 03-20-2023 Scr dep neg, no plan reqd Tori VELAZQUEZ-C Work Phone: Start: 03-07-2022 End: 03-07-2022 No Known Past Surgical History Radha Gomez MA Plan of Treatment Date Care Activity Detail Author Start: 03-17-2035 Urine microalbumin profile DTaP,Tdap,Td Vaccine (2 - Td or Tdap) [facility] Start: 10-29-2027 Screening for malignant neoplasm of cervix Cervical Cancer Screening [facility] Start: 04-14-2025 End: 04-14-2025 Patient encounter procedure 04/14/2025 8:10 AM EDT Routine Office Visit OB/Gynecology [address] [place] [address] Yarely Brady MD [address] [place] [address] OB OB/Gynecology Comment on above: OB Start: 04-13-2025 RSV Vaccine (1 - Ris k 1-dose series) RSV Vaccine (1 - Risk 1-dose series) [facility] Start: 03-17-2025 End: 06-16-2025 ANEMIA REFLEX PANEL [facility] Comment on above: Expected: 03/17/2025 , Expires: 06/16/2025 Start: 03-17-2025 End: 03-17-2026 SYPHILIS TREPONEMAL W/REFLEX [facility] Work Phone: Comment on above: Expected: 03/17/2025 , Expires: 03/17/2026 Start: 03-01-2025 Influenza vaccination [facility] Start: 02-10-2025 End: 02-10-2025 Patient encounter procedure 02/10/2025 3:10 PM EDT Routine Office Visit OB/Gynecology [address] [place] [address] Tori Vega MD [address] [place] [address] OB OB/Gynecology Comment on above: OB Start: 01-14-2025 End: 01-14-2025 Patient encounter procedure [facility] Comment on above: anatomy ob Start: 12-09-2024 End: 12-09-2024 Patient encounter procedure 12/09/2024 8:30 AM EDT Routine Office Visit [facility] [address] [place] [id number] [facility] Comment on above: [facility] Start: 11-25-2024 End: 11-25-2024 Patient encounter procedure 11/25/2024 3:20 PM EDT Routine Office Visit OB/Gynecology [address] [place] [address] Ophelia Epstein MD [address] [place] [address] New Pt OB/Gynecology Comment on above: New Pt Start: 10-28-2024 End: 01-27-2025 ANEMIA REFLEX PANEL ANEMIA REFLEX PANEL Lab Routine Encounter for supervision of high risk in first trimester, antepartum (HCC) Expected: 10/28/2024, Expires: 01/27/2025 [facility] Work Phone: Comment on above: Expected: 10/28/2024 , Expires: 01/27/2025 Start: 10-28-2024 End: 01-27-2025 Hemoglobin A1c in Blood HEMOGLOBIN A1C Lab Routine Encounter for supervision of high risk in first trimester, antepartum (HCC) Expected: 10/28/2024, Expires: 01/27/2025 [facility] Comment on above: Expected: 10/28/2024 , Expires: 01/27/2025 Start: 10-28-2024 End: 01-27-2025 Hepatitis B virus surface Ag [Presence] in Serum HEPATITIS B SURFACE ANTIGEN Lab Routine Encounter for supervision of high risk in first trimester, antepartum (HCC) Expected: 10/28/2024, Expires: 01/27/2025 [facility] Comment on above: Expected: 10/28/2024 , Expires: 01/27/2025 Start: 10-28-2024 End: 01-27-2025 Hepatitis C virus Ab [Presence] in Serum HEPATITIS C ANTIBODY IA WITH CONFIRMATION Lab Routine Encounter for supervision of high risk in first trimester, antepartum (HCC) Expected: 10/28/2024, Expires: 01/27/2025 [facility] Comment on above: Expected: 10/28/2024 , Expires: 01/27/2025 Start: 10-28-2024 End: 01-27-2025 HIV 1+2 Ab [Presence] in Serum or Plasma by Immunoassay HIV 1/2 COMBO WITH REFLEX TO DIFFERENTIATION Lab Routine Encounter for supervision of high risk in first trimester, antepartum (HCC) Expected: 10/28/2024, Expires: 01/27/2025 [facility] Comment on above: Expected: 10/28/2024 , Expires: 01/27/2025 Start: 10-28-2024 End: 10-28-2025 OBSTETRIC ULTRASOUND WHI OBSTETRIC ULTRASOUND WHI Anc Imaging Routine Encounter for supervision of high risk in first trimester, antepartum (HCC) Expected: 10/28/2024, Expires: 10/28/2025 [facility] Comment on above: Expected: 10/28/2024 , Expires: 10/28/2025 Start: 10-28-2024 End: 01-27-2025 RUBELLA IGG ANTIBODY RUBELLA IGG ANTIBODY Lab Routine Encounter for supervision of high risk in first trimester, antepartum (HCC) Expected: 10/28/2024, Expires: 01/27/2025 [facility] Comment on above: Expected: 10/28/2024 , Expires: 01/27/2025 Start: 10-28-2024 End: 01-27-2025 SYPHILIS TREPONEMAL W/REFLEX SYPHILIS TREPONEMAL W/REFLEX Lab Routine Encounter for supervision of high risk in first trimester, antepartum (HCC) Expected: 10/28/2024, Expires: 01/27/2025 [facility] Comment on above: Expected: 10/28/2024 , Expires: 01/27/2025 Start: 10-28-2024 End: 01-27-2025 TYPE + SCREEN TYPE + SCREEN Blood Bank Routine Encounter for supervision of high risk in first trimester, antepartum (HCC) Expected: 10/28/2024, Expires: 01/27/2025 [facility] Comment on above: Expected: 10/28/2024 , Expires: 01/27/2025 Start: 06-28-2024 Screening for malignant neoplasm of cervix Cervical Cancer Screening [facility] Start: 2024 HPV Vaccine (1 - 3-dose SCDM series) HPV Vaccine (1 - 3-dose SCDM series) [facility] Start: 03-01-2024 Covid-19 Vaccine (1 - 2024-25 season) Covid-19 Vaccine ( season) [facility] Start: 03-01-2024 Influenza vaccination Influenza Vacc ine (#1) [facility] Start: 2016 Hepatitis B Vaccine (1 of 3 - 19+ 3-dose series) Hepatitis B Vaccine (1 of 3 - 19+ 3-dose series) [facility] Start: 2016 Urine microalbumin profile DTaP,Tdap,Td Vaccine (1 - Tdap) [facility] Start: 2015 Anxiety Screening Anxiety Screening [facility] Start: 2015 [facility]: 2015 Hepatitis C screening Hepatitis C Sc reening [facility] Start: 2015 HIV screening HIV Screening [facility] Bacteria identified in Urine by Culture BACTERIAL CULTURE, URINE Microbiology Routine Encounter for supervision of high risk in first trimester, antepartum (HCC) 10/28/2024 10:18 AM EDT [facility] Chlamydia trachomatis+Neisseria gonorrhoeae DNA [Presence] in Unspecified specimen by TALITA with probe detection GONORRHEA/CHLAMYDIA NAAT Lab Routine Encounter for supervision of high risk in first trimester, antepartum ([facility]) Screen for STD (sexually transmitted disease) 10/28/2024 10:18 AM T [facility] PAP TEST PAP TEST Lab Rou whit Encounter for supervision of high risk in first trimester, antepartum ([facility]) Screening for cervical cancer 10/28/2024 10:18 AM T [facility] TRICHOMONAS VAGINALI S NAAT TRICHOMONAS VAGINALIS NAAT Lab Routine Encounter for supervision of high risk in first trimester, antepartum ([facility]) Screen for STD (sexually transmitted disease) 10/28/2024 10:18 AM T [facility] Immunizations Immunization Date Immunization Notes Care Provider Fa jens 03-17-2025 tetanus toxoid, redu leelee diphtheria toxoid, and acellular pertussis vaccine, adsorbed Yarely Brady MD Work Phone: [facility] Payers Date Payer Category Payer Self-pay 2019 Private Health Insurance [employer] [id number] 2019 Unknown [id number] 1997 Unknown [id number] Unknown [employer] Unknown [id number] Social History Date Type Detail Facility [facility] Work Phone: Tobacco smoking consumption unknown [facility] Work Phone: Start: 10-28-2024 Tobacco smoking stat [facility] Never smoked tobacco [facility] Start: 10-28-2024 Tobacco use and exposure Smokeless tobacco non-user [facility] Start: 10-28-2024 End: 03-17-2025 Alcoholic beverage intake Lifetime non-drinker (finding) [facility] Start: 10-28-2024 End: 03-17-2025 History of Social function [facility] Start: 10-28-2024 End: 03-17-2025 Tobacco use panel [facility] Start: 06-16-2021 National Score (1-100), lower number is lower risk 73 [facility] Start: 09-15-2024 [facility] Start: 1995 Sex assigned at Not on file [facility] NEGATED: Highlighted row No Social History Information Available No Social History Information Available [facility]; [employer] [facility] Work Phone: Clinical Notes 10-28-2024 to 03-17-2025 [...] Yarely Brady MD documented in this encounter [facility] 03-17-2025 Progress note Formatting of t his [...] V05.9, ICD10: Z23 TDAP Yarely Brady MD [facility] 03-17-2025 Note HNO ID: [id number] Author: CAROLYN ARMENDARIZ MA Service: ? Author Type: Geophysical E Logger Type: Progress Notes Filed: 03/17/2025 11:16 Note [...] severely ill: Yes Patient denies history of Guillain-Sanford Syndrome (a severe paralytic illness): Yes Tdap Adacel injection was given without incident. See immunizations for details of immunizations administered today. VIS sheet provided: Yes Provider Yarely Brady MD was present in office at time of injection. Carolyn Armendariz MA [facility] 03-17-2025 History of Presen t illness Narrative [...] severely ill: Yes Patient denies history of Guillain-Sanford Syndrome (a severe paralytic illness): Yes Tdap Adacel injection was given without incident. See immunizations for details of immunizations administered today. VIS sheet provided: Yes Provider Yarely Brady MD was present in office at time of injection. Carolyn Armendariz MA documented in this encounter [facility] 03-17-2025 Instructions Carolyn Armendariz MA - 03/17/2025 10:38 AM EDT SEQUENTIAL SCREENINGS The [facility] offers sequential screenings for women who are [...] It will require an appointment with our traffic engineering technician. This is not an ultrasound performed [...] the above symptoms, contact our office at [phone] and ask to speak with a nurse. After hours, you can call doctors registry at [phone] OR call [facility] at [phone] and ask to have the doctor flat ironer paged. If you consider this an emergency, dial 03-01- or go to your nearest emergency department. NEED HELP? Are you dealing with a violent or abusive relationship? Are you a victim of rape or sexual assult? Call [facility] ([place]) 24 hour Crisis Hotline: 594.900.2981 or 847-583-5757. MANUAL Your Guide to a Healthy manual is now on-line. Visit [email or web address] to download your free copy documented in this encounter [facility] 01-14-2025 Progress note Formatting of t his [...] not needing meds now Tori Vega M.D. [facility] 01-14-2025 Miscellaneous Notes RR- VB No. LOF [...] Tori Vega M.D. documented in this encounter [facility] 01-14-2025 Gayatri Cervantes MA - 01/14/2025 3:47 PM EDT SEQUENTIAL SCREENINGS The [facility] offers sequential screenings for women who are [...] It will require an appointment with our traffic engineering technician. This is not an ultrasound performed [...] the above symptoms, contact our office at [phone] and ask to speak with a nurse. After hours, you can call doctors registry at [phone] OR call [facility] at [phone] and ask to have the doctor flat ironer paged. If you consider this an emergency, dial 9-1-5 or go to your nearest emergency department. NEED HELP? Are you dealing with a violent or abusive relationship? Are you a victim of rape or sexual assult? Call [facility] ([place]) 24 hour Crisis Hotline: 538.141.6136 or 366-906-5953. MANUAL Your Guide to a Healthy manual is now on-line. Visit [email or web address] to download your free copy documented in this encounter [facility] 12-10-2024 Telephone encounter Note MONIQUE paperwork completed and faxed back to employer. Patient notified. Primo Loyola MA [facility] 12-10-2024 Miscellaneous Notes MONIQUE paperwork completed and faxed back to employer. Patient notified. Primo Loyola MA Received [facility] paperwork. Primo Loyola MA documented in this encounter [facility] 12-01-2024 Telephone encounter Note Received [facility] paperwork. Primo Loyola MA [facility] 11-25-2024 Progress note Formatting of t his [...] hirscheprung's and Oligo 12 weeks gestation of ([facility]) Declines anueploidy testing Will start ASA RTO 4 wks Needs to schedule early NT ultrasound Ophelia Orta MD [facility] 11-25-2024 Miscellaneous Notes DM-Pt doing well. Denies [...] Ophelia Orta MD documented in this encounter [facility] 11-25-2024 Instructions Cindy Gomez MA - 11/25/2024 3:15 PM EDT SEQUENTIAL SCREENINGS The [facility] offers sequential screenings for women who are [...] It will require an appointment with our traffic engineering technician. This is not an ultrasound performed [...] the above symptoms, contact our office at [phone] and ask to speak with a nurse. After hours, you can call doctors registry at [phone] OR call [facility] at [phone] and ask to have the doctor flat ironer paged. If you consider this an emergency, dial 9-1-1 or go to your nearest emergency department. NEED HELP? Are you dealing with a violent or abusive relationship? Are you a victim of rape or sexual assult? Call [facility] ([facility] 24 hour Crisis Hotline: 927.452.7547 or 304-114-4964. MANUAL Your Guide to a Healthy manual is now on-line. Visit [email or web address] to download your free copy documented in this encounter [facility] 10-28-2024 Note HNO ID: [id number] Author: TRAVIS INMAN APRN.AUTOMATIC LOG CUT OFF SAWYER Service: ? Author Type: Nurse Practitioner Type: Progress Notes Filed: 10/28/2024 10:32 Note Text: Ophthalmic Asst offered: Patient declines. INITIAL OB ASSESSMENT HPI: Robi is a 29 year old White here to establish Obstetrical Care. Patient's last menstrual period was 06/14/2021 (approximate). from OB Dating Form. was planned Complaints: No OB History Gravida2 Para2 Term2 Preterm0 AB0 Living1 SAB0 IAB0 Ectopic0 Multiple0 Live Births1 Comment: 2 vaginal deliveries -- at [facility] (Dr. Urena) Previous history: Prior : never [...] Status:Partnering Partner: Name: Hal Age: 35 Occupation: Customer Relations Specialist Gender: Male PAST MEDICAL HISTORY Diagnosis Date [...] sensitive examination was (more content not included)... [facility] 10-28-2024 History of Presen t illness Narrative Ophthalmic Asst offered: Patient declines. INITIAL OB ASSESSMENT HPI: Robi is a 29 year old White here to establish Obstetrical Care. Patient's last menstrual period was 06/14/2021 (approximate). from OB Dating Form. was planned Complaints: No OB History Gravida2 Para2 Term2 Preterm0 AB0 Living1 SAB0 IAB0 Ectopic0 Multiple0 Live Births1 Comment: 2 vaginal deliveries -- at [facility] (Dr. Urena) Previous history: Prior : never [...] Status:Partnering Partner: Name: Hal Age: 35 Occupation: Customer Relations Specialist Gender: Male PAST MEDICAL HISTORY Diagnosis Date -05/2021 No past surgical history on file. Current [...] discussed with the Patient or Patient's Authorized Artist Color Separation. As applicable, any other physician, advance practice provider, medical student, or other health professional student that will be observing or involved in the sensitive examination for educational or training purposes was discussed with the Patient or Authorized Artist Color Separation. The Patient or Authorized Artist Color Separation has agreed to proceed with the sensitive [...] Your guide to a health and the Bank Accountant. Discussed hemoglobin electrophoresis. Patient: Declines Reviewed midwifery and public safety director services that are available. 2) Screening: Hemoglobin [...] of High Risk in First Trimester, Antepartum ([facility]) - 10/28/2024 Comment: Care Checklist Vaccines: [] Flu vaccine [] declined [] RSV vaccine 32 0/7 - 36 6/ (Mar - Aug) [] declined [] COVID [...] (28-30 weeks): [] Consent [] Contraception [] Cashier Payments Received [] TeamBirth handout Third trimester (36-40 weeks): [] GBS [] Presentation - [] Scheduled [] yes - Hibiclens, pre-op instructions, CBC, T&S ordered [] no [] H&P [] Preferences worksheet Nausea and Vomiting During ([facility]) - 10/28/2024 Comment: 10/28/24 Vitamin B6 doses reviewed. To notify if prescription is needed. Travis Inman APRN.AUTOMATIC LOG CUT OFF SAWYER History of Vacuum Extraction Assisted Delivery - 10/28/2024 Comment: October 28, 2024 With first delivery. See scanned documents. Travis Inman APRN.AUTOMATIC LOG CUT OFF SAWYER History of Episiotomy - 10/28/2024 Comment: October 28, 2024 Right mediolateral with first delivery. See scanned documents. Travis Inman APRN.AUTOMATIC LOG CUT OFF SAWYER History of Oligohydramnios - 10/28/2024 Comment: October 28, 2024 With first , resulting in induction. Travis Inman APRN.AUTOMATIC LOG CUT OFF SAWYER Follow up in 4 weeks or sooner prn. Plan for NT scan between 12w0d and 13w6d gestation. Travis Inman APRN.AUTOMATIC LOG CUT OFF SAWYER documented in this encounter [facility] 10-28-2024 Instructions Eli Jimenez MA - 10/28/2024 9:27 AM EDT Please select the following link to access the [facility] Your Guide to a Healthy . [email or web address] documented in this encounter [facility] Evaluation note Diagnosis Encounter for supervision of [...] of the cervix Nausea and vomiting during (HCC) documented [facility] Diagnosis Encounter for supervision of high risk in first trimester, antepartum (HCC)- Primary History of vacuum extraction assisted delivery Other postprocedural status History of abnormality in previous , currently , first trimester (HCC) 12 weeks gestation of (HCC) state, incidental * Assessment & Plan Note - Ophelia Epstein MD - 11/25/2024 3:53 PM EDT Associated Problem(s): Encounter for supervision of high risk in first trimester, antepartum (HCC) * Assessment & Plan Note - Ophelia Epstein MD - 11/25/2024 3:53 PM EDT Associated Problem(s): History of vacuum extraction assisted delivery * Assessment & Plan Note - Ophelia Epstein MD - 11/25/2024 3:53 PM EDT Associated Problem(s): History of abnormality in previous , currently , first trimester (HCC) Previous child with hirscheprung's and Oligo [facility] encounter [facility] Diagnosis Encounter for supervision of high risk in first trimester, antepartum (HCC)- Primary History of vacuum extraction assisted delivery Other postprocedural status History of abnormality in previous , currently , first trimester (HCC) 12 weeks gestation of ([facility]) state, incidental Encounter for anatomic survey (HCC)- Primary Encounter for anatomic survey 19 weeks gestation of ([facility]) state, incidental Supervision of high risk in second trimester (HCC)- Primary Unspecified high-risk 19 weeks gestation of ([facility]) state, incidental Nausea and vomiting during ([facility]) documented [facility] Diagnosis Encounter for supervision of high [...] needing meds now documented [facility] this [facility] Diagnosis Encounter for supervision of high [...] state, incidental Nausea and vomiting during (HCC) Screening for diabetes mellitus- Primary 28 weeks gestation of (HCC) state, incidental Supervision of high risk in second trimester (HCC) Unspecified high-risk Need for vaccination Need for prophylactic vaccination and inoculation against unspecified single disease documented in this encounter [facility] Summary Purpose Family History No Family History [...] section and content) DATE CREATED AUTHOR 02/04/[address] [facility] DATE CREATED AUTHOR AUTHOR'S ORGANIZ ATION 03/10/2022 [facility] DATE CREATED AUTHOR AUTHOR'S ORGANIZ ATION 03/18/2023 [facility] DATE CREATED AUTHOR AUTHOR'S ORGANIZ ATION 10/13/2024 [facility] DATE CREATED AUTHOR AUTHOR'S ORGANIZ ATION 05/07/2025 [facility] Source Comments (unrecognize d section and content) In the event this informatio n is protected by the Federal Confidentiality of Alcohol and Drug Abuse Patient Records regulations: The Federal rules restrict any use of the information to criminally investigate or prosecute any alcohol or drug abuse patient.[facility] the event this information is protected by the Federal Confidentiality of Alcohol and Drug Abuse Patient Records regulations: The Federal rules restrict any use of the information to criminally investigate or prosecute any alcohol or drug abuse patient.[facility] the event this information is protected by the Federal Confidentiality of Alcohol and Drug Abuse Patient Records regulations: The Federal rules restrict any use of the information to criminally investigate or prosecute any alcohol or drug abuse patient.[facility] the event this information is protected by the Federal Confidentiality of Alcohol and Drug Abuse Patient Records regulations: The Federal rules restrict any use of the information to criminally investigate or prosecute any alcohol or drug abuse patient.[facility] the event this information is protected by the Federal Confidentiality of Alcohol and Drug Abuse Patient Records regulations: The Federal rules restrict any use of the information to criminally investigate or prosecute any alcohol or drug abuse patient.[facility] the event this information is protected by the Federal Confidentiality of Alcohol and Drug Abuse Patient Records regulations: The Federal rules restrict any use of the information to criminally investigate or prosecute any alcohol or drug abuse patient.[facility] Center[facility] the event this information is protected by the Federal Confidentiality of Alcohol and Drug Abuse Patient Records regulations: The Federal rules restrict any use of the information to criminally investigate or prosecute any alcohol or drug abuse patient.[facility] Reason for Visit (unrecogniz ed section and content) Reason Comments Initial OB Visit Reason Onset Date Comments Care 11/25/2024 Reason Comments FMLA Paperwork Reason Comments [facility] Specialty Diagnoses / Procedures Referred By Bridger t Referred To Contact [facility] Diagnoses Encounter for supervision of high risk in first trimester, antepartum (HCC) Procedures OBSTETRIC ULTRASOUND WHI US PREG UTERUS AFTER 1ST TRIMEST GESTATION Travis Inman APRN.AUTOMATIC LOG CUT OFF [facility] [address] [place] [address] Phone: tel: fax: Formerly Named [facility] [address] [place] [address] Referral ID Status Reason Start Date Expiration Date V isits Requested Visits Authorized [id number] Closed Auto-Generate d Referral 10/28/2024 10/28/2025 1 [...] ON THE PRIMARY CLINICAL RECORDS. [facility] [employer] [facility]. provides no warranty or guarantee of the accuracy or completeness of information in this document.
[2025-05-30 00:47] LABS: ROM Internal Control Test YES-OK TO RESULT pt. (Internal QC)
[2025-05-30 00:49] LABS: ROM Patient Test POSITIVE (Negative); Record Kit Lot#, ROM+ K3607
[2025-05-30 01:14] LABS: Hematocrit 34.2 % (37-47); Hemoglobin 11.2 g/dL (12.0-15.0); Immature Granulocytes Count 0.030 X10^3/uL (0.0-0.0); Mean Corp Hgb Conc 32.7 g/dL (32-36); Mean Corpuscular Volume 84.2 fL (81-99); Mean Platelet Vol. 11.9 fl (6.2-12.0); NRBC Flagged by Analyzer 0 % (0-5); Platelet Count 209 K/mm3 (150-450); RBC Distribution Width CV 13.0 % (11.6-14.6); RBC Distribution Width SD 39.5 fl (35.1-43.9); Red Blood Count 4.06 M/mm3 (4.2-5.4); White Blood Count 6.4 K/mm3 (4.4-11.0)
[2025-05-30] MEDS: Lactated Ringers 1,000 ML 999 ML IV (01:18)
--- OUTSIDE RECORDS SUMMARY | 2025-05-30 01:21 | XMS RPT_ITS | CCD ---
Author Organization [facility] Care Team Providers Care Shellfish Weigher Name Role Phone JAYCE BUCKNER DO Admitting Unavailable ESTRADA, TORI PAC Referring Unavailable ESTRADA, TORI PAC Consulting Unavailable JAYCE BUCKNER DO Attending Unavailable JAYCE BUCKNER DO Primary Care Unavailable PROVIDER, UNKNOWN Consulting Unavailable Tori Estrada PA-C Unavailable [phone] Radha Gomez MA Unavailable Unavailable Huong [...] Quantity: 60 {Tablet} Refills: 0 Ordered: 31-May-2021 AMPAOR Estrada Start: 31-May-2021 End: 30-Jul-2021 Status: Inactive [...] [Supervision of high risk in third trimester ([facility])] Onset: 04-21-2025 Episodic Other complications of (1 source) Uterine size-date discrepancy, third trimester; Translations: [Uterine size-date discrepancy in third trimester ([facility])] Onset: 04-14-2025 Episodic Other female genital disorders [...] of ; Translations: [35 weeks gestation of ([facility])] Onset: 05-05-2025 Episodic Residual codes; unclassified (1 [...] from hospital stay - Name of Hospital: [facility]. Date of Admission: 03/13. Date of [...] Unsp challenge [Mass/Vol] 163 mg/dL Normal 74-179 [facility] Comment on above: Order Comment: Jeremy cabrera Type: BLOOD SPECIMEN Ordering Facility: [facility] Address: [address] [place] [address] Result Comment: [facility] Congress of Obstetricians and Gynecologists (Álvarez/Olvinan) guidelines state gestational diabetes mellitus is present when 2 or more of the plasma glucose concentrations meet or exceed the following levels: fastin mg/dl, 1 hr: 180 mg/dl, 2 hr: 155 mg/dl, and 3 hr: 140 mg/dl. Performed By: #### G TGST1 #### [facility] CLIA [id number] [address] [place] [address] [place] GLUCOSE GESTATIONAL, 2 HOURo n 03-24-2025 Glucose 2 Hr post Unsp challenge [Mass/Vol] 138 mg/dL Normal 74-154 [facility] Comment on above: Order Comment: Jeremy cabrera Type: BLOOD SPECIMEN Ordering Facility: [facility] Address: [address] [place] [address] Result Comment: [facility] Congress of Obstetricians and Gynecologists (Álvarez/Ryne) guidelines state gestational diabetes mellitus is present when 2 or more of the plasma glucose concentrations meet or exceed the following levels: fastin mg/dl, 1 hr: 180 mg/dl, 2 hr: 155 mg/dl, and 3 hr: 140 mg/dl. Performed By: #### G TGST2 #### [facility] [id number] [address] [place] [address] [place] GLUCOSE GESTATIONAL, 3 HOURo n 03-24-2025 Glucose 3 Hr post Unsp challenge [Mass/Vol] 113 mg/dL Normal 74-139 [facility] Comment on above: Order Comment: Jeremy cabrera Type: BLOOD SPECIMEN Ordering Facility: [facility] Address: [address] [place] [address] Result Comment: [facility] Congress of Obstetricians and Gynecologists (Álvarez/Alvinstan) guidelines state gestational diabetes mellitus is present when 2 or more of the plasma glucose concentrations meet or exceed the following levels: fastin mg/dl, 1 hr: 180 mg/dl, 2 hr: 155 mg/dl, and 3 hr: 140 mg/dl. Performed By: #### 5 7021-8 #### [facility] CLIA [id number] [address] [place] [address] [place] GLUCOSE GESTATIONAL, FASTING on 03-24-2025 Glucose post fast [Mass/Vol] 68 mg/dL Low 74-94 [facility] Comment on above: Order Comment: Speci men Type: BLOOD SPECIMEN Ordering Facility: [facility] Address: [address] [place] [address] Result Comment: [facility] Congress of Obstetricians and Gynecologists (Preeti/Ryne) guidelines state gestational diabetes mellitus is present when 2 or more of the plasma glucose concentrations meet or exceed the following levels: fastin mg/dl, 1 hr: 180 mg/dl, 2 hr: 155 mg/dl, and 3 hr: 140 mg/dl. Performed By: #### 5 7021-8 #### [facility] CLIA [id number] [address] [place] [address] [place] CBC W Auto Differential pane l (Bld)on 03-17-2025 Basophils (Bld) [#/Vol] 0.03 10*3/uL Normal <0.11 [facility] Comment on above: Order Comment: Speci men Type: BLOOD SPECIMEN Ordering Facility: [facility] Address: [address] [place] [address] Performed By: #### 5 7021-8 #### [facility] CLIA [id number] [address] [place] [address] [place] Basophils/100 WBC (Bld) 0.4 % Normal [facility] Comment on above: Order Comment: Speci men Type: BLOOD SPECIMEN Ordering Facility: [facility] Address: [address] [place] [address] Performed By: #### 5 7021-8 #### [facility] CLIA [id number] [address] [place] [address] [place] Differential cell count method Nom (Bld) Auto Normal [facility] Comment on above: Order Comment: Speci men Type: BLOOD SPECIMEN Ordering Facility: [facility] Address: [address] [place] [address] Performed By: #### 5 7021-8 #### [facility] CLIA [id number] [address] [place] [address] [place] Eosinophils (Bld) [#/Vol] 0.04 10*3/uL Normal <0.46 [facility] Comment on above: Order Comment: Speci men Type: BLOOD SPECIMEN Ordering Facility: [facility] Address: [address] [place] [address] Performed By: #### 5 7021-8 #### [facility] [id number] [address] [place] [address] [place] Eosinophils/100 WBC (Bld) 0.5 % Normal [facility] Comment on above: Order Comment: Speci men Type: BLOOD SPECIMEN Ordering Facility: [facility] Address: [address] [place] [address] Performed By: #### 5 7021-8 #### [facility] CLIA [id number] [address] [place] [address] [place] Erythrocyte distribution width (RBC) [Ratio] 12.7 % Normal 11.5-15.0 [facility] Comment on above: Order Comment: Speci men Type: BLOOD SPECIMEN Ordering Facility: [facility] Address: [address] [place] [address] Performed By: #### 5 7021-8 #### [facility] [id number] [address] [place] [address] [place] Hematocrit (Bld) [Volume fraction] 32.6 % Low 36.0-46.0 [facility] Comment on above: Order Comment: Speci men Type: BLOOD SPECIMEN Ordering Facility: [facility] Address: [address] [place] [address] Performed By: #### 5 7021-8 #### [facility] CLIA [id number] [address] [place] [address] [place] Hemoglobin (Bld) [Mass/Vol] 11.0 g/dL Low 11.5-15.5 [facility] Comment on above: Order Comment: Speci men Type: BLOOD SPECIMEN Ordering Facility: [facility] Address: [address] [place] [address] Performed By: #### 5 7021-8 #### [facility] CLIA [id number] [address] [place] [address] [place] Immature granulocytes (Bld) [#/Vol] 0.04 10*3/uL Normal <0.10 [facility] Comment on above: Order Comment: Speci men Type: BLOOD SPECIMEN Ordering Facility: [facility] Address: [address] [place] [address] Performed By: #### 5 7021-8 #### [facility] CLIA [id number] [address] [place] [address] [place] Immature granulocytes/100 WBC (Bld) 0.5 % Normal [facility] Comment on above: Order Comment: Speci men Type: BLOOD SPECIMEN Ordering Facility: [facility] Address: [address] [place] [address] Performed By: #### 5 7021-8 #### [facility] CLIA [id number] [address] [place] [address] [place] Lymphocytes (Bld) [#/Vol] 1.52 10*3/uL Normal 1.00-4.00 [facility] Comment on above: Order Comment: Speci men Type: BLOOD SPECIMEN Ordering Facility: [facility] Address: [address] [place] [address] Performed By: #### 5 7021-8 #### [facility] CLIA [id number] [address] [place] [address] [place] Lymphocytes/100 WBC (Bld) 19.6 % Normal [facility] Comment on above: Order Comment: Speci men Type: BLOOD SPECIMEN Ordering Facility: [facility] Address: [address] [place] [address] Performed By: #### 5 7021-8 #### [facility] CLIA [id number] [address] [place] [address] [place] MCH (RBC) [Entitic mass] 29.4 pg Normal 26.0-34.0 [facility] Comment on above: Order Comment: Speci men Type: BLOOD SPECIMEN Ordering Facility: [facility] Address: [address] [place] [address] Performed By: #### 5 7021-8 #### [facility] [id number] [address] [place] [address] [place] MCHC (RBC) [Mass/Vol] 33.7 g/dL Normal 30.5-36.0 [facility] Comment on above: Order Comment: Speci men Type: BLOOD SPECIMEN Ordering Facility: [facility] Address: [address] [place] [address] Performed By: #### 5 7021-8 #### [facility] [id number] [address] [place] [address] [place] MCV (RBC) [Entitic vol] 87.2 fL Normal 80.0-100.0 [facility] Comment on above: Order Comment: Speci men Type: BLOOD SPECIMEN Ordering Facility: [facility] Address: [address] [place] [address] Performed By: #### 5 7021-8 #### [facility] CLIA [id number] [address] [place] [address] [place] Monocytes (Bld) [#/Vol] 0.26 10*3/uL Normal <0.87 [facility] Comment on above: Order Comment: Speci men Type: BLOOD SPECIMEN Ordering Facility: [facility] Address: [address] [place] [address] Performed By: #### 5 7021-8 #### [facility] CLIA [id number] [address] [place] [address] [place] Monocytes/100 WBC (Bld) 3.4 % Normal [facility] Comment on above: Order Comment: Speci men Type: BLOOD SPECIMEN Ordering Facility: [facility] Address: [address] [place] [address] Performed By: #### 5 7021-8 #### [facility] CLIA [id number] [address] [place] [address] [place] Neutrophils (Bld) [#/Vol] 5.85 10*3/uL Normal 1.45-7.50 [facility] Comment on above: Order Comment: Speci men Type: BLOOD SPECIMEN Ordering Facility: [facility] Address: [address] [place] [address] Performed By: #### 5 7021-8 #### [facility] CLIA [id number] [address] [place] [address] [place] Neutrophils/100 WBC (Bld) 75.6 % Normal [facility] Comment on above: Order Comment: Speci men Type: BLOOD SPECIMEN Ordering Facility: [facility] Address: [address] [place] [address] Performed By: #### 5 7021-8 #### [facility] CLIA [id number] [address] [place] [address] [place] Nucleated RBC (Bld) [#/Vol] 10*3/uL Normal <0.01 [facility] Comment on above: Order Comment: Speci men Type: BLOOD SPECIMEN Ordering Facility: [facility] Address: [address] [place] [address] Performed By: #### 5 7021-8 #### [facility] CLIA [id number] [address] [place] [address] [place] Nucleated RBC/100 WBC (Bld) [Ratio] 0.0 /100 WBC Normal [facility] Comment on above: Order Comment: Speci men Type: BLOOD SPECIMEN Ordering Facility: [facility] Address: [address] [place] [address] Performed By: #### 5 7021-8 #### [facility] CLIA [id number] [address] [place] [address] [place] Platelet mean volume (Bld) [Entitic vol] 9.8 fL Normal 9.0-12.7 [facility] Comment on above: Order Comment: Speci men Type: BLOOD SPECIMEN Ordering Facility: [facility] Address: [address] [place] [address] Performed By: #### 5 7021-8 #### [facility] CLIA [id number] [address] [place] [address] [place] Platelets (Bld) [#/Vol] 222 10*3/uL Normal 150-400 [facility] Comment on above: Order Comment: Speci men Type: BLOOD SPECIMEN Ordering Facility: [facility] Address: [address] [place] [address] Performed By: #### 5 7021-8 #### [facility] CLIA [id number] [address] [place] [address] [place] RBC (Bld) [#/Vol] 3.74 10*6/uL Low 3.90-5.20 [facility] Comment on above: Order Comment: Speci men Type: BLOOD SPECIMEN Ordering Facility: [facility] Address: [address] [place] [address] Performed By: #### 5 7021-8 #### [facility] CLIA [id number] [address] [place] [address] [place] WBC (Bld) [#/Vol] 7.74 10*3/uL Normal 3.70-11.00 [facility] Comment on above: Order Comment: Speci men Type: BLOOD SPECIMEN Ordering Facility: [facility] Address: [address] [place], [place] [address] Performed By: #### 5 7021-8 #### [facility] CLIA [id number] [address] [place] [address] [place] GESTATIONAL GLUCOSE SCREEN, 1-HOUR, 50 GRAM, NON-FASTINGOrdered By: Tamra Torres on 03-17-2025 Glucose [Mass/Vol] 149 mg/dL High 74 - 134 mg/dL [facility] Comment on above: [place] Congress of Obstetricians and Gynecologists (Preeti/Ryne) guidelines state a gestational diabetes mellitus positive screen is made, in women not previously diagnosed with overt diabetes, when the 1 hr plasma glucose level is equal to or above 140 mg/dL. The [facility] recommends a 135 mg/dL cutoff. Interpretation and review of laboratory results Abnormal [facility] GESTATIONAL GLUCOSE SCREEN, 1-HOUR, 50 GRAM, NON-FASTINGon 03-17-2025 Glucose [Mass/Vol] 149 mg/dL High 74-134 [facility] Comment on above: Order Comment: Speci men Type: BLOOD SPECIMEN Ordering Facility: [facility] Address: [address] [place] [address] Result Comment: [facility] Congress of Obstetricians and Gynecologists (Preeti/Coustan) guidelines state a gestational diabetes mellitus positive screen is made, in women not previously diagnosed with overt diabetes, when the 1 hr plasma glucose level is equal to or above 140 mg/dL. The [facility] recommends a 135 mg/dL cutoff. Performed By: #### 5 7021-8 #### [facility] CLIA [id number] [address] [place] [address] [place] Reagin and Treponema pallidu m IgG and IgM [Interp]on 03-17-2025 T. pallidum IgG+IgM IA Ql (S) Non-Reactive Normal Nonreactive [facility] Comment on above: Order Comment: Speci men Type: SWAB Ordering Facility: [facility] Address: [address] [place] [address] Performed By: #### T RVAMP, 78723-8 #### [facility] CLIA [id number] [address] [place] [address] [place] Reagin+T pallidum IgG+IgM Se rPl-Impon 03-17-2025 Reagin and Treponema pallidum IgG and IgM [Interp] Cannot exclude recent Treponemal infection if specimen collected within 7-10 days after appearance of suspect lesions or 2-3 weeks after an exposure. Clinical correlation is required. Normal [facility] Comment on above: Order Comment: Speci men Type: SWAB Ordering Facility: [facility] Address: [address] [place] [address] Performed By: #### T RVAMP, 74141-9 #### [facility] CLIA [id number] [address] [place] [address] [place] Examination level ultrasound [...] 11 oz EFW by: Hadlock (HC-AC-FL) Extended Ab Initio Etl Developer 6.3 mm CM 5.2 mm 62% Nicolaides [...] normal LVOT view: normal 3-vessel view: normal 2-ajibbc-woreyks view: normal Heart / Thorax Situs: situs [...] Read By: Leslie Loya M.D. MATERNAL MEDICINE [facility] Radiology Study observation (narrative) [facility]20[facility] ROBI MASTERS ([id number]) 1995 F Date Time Provider Department 12/01/24 OPHELIA EPSTEIN OBGYWM During your visit today, we recorded the following information about you: Primo Loyola MA 12/01/2024 8:43 AM Signed Received [place] paperwork. VALENTIN Goldsmith [place], [place] 12/10/2024 8:18 AM Signed [place] [...] Status:Closed by PRIMO LOYOLA on 12/10/24 Normal [facility] CBC W Auto Differential pane l (Bld)on 11-25-2024 Basophils (Bld) [#/Vol] 10*3/uL Normal <0.11 [facility] Comment on above: Order Comment: Speci men Type: BLOOD SPECIMEN Ordering Facility: [facility] Address: [address] [place] [address] Performed By: #### 5 7021-8 #### [facility] CLIA [id number] [address] [place] [address] [place] Basophils/100 WBC (Bld) 0.3 % Normal [facility] Comment on above: Order Comment: Speci men Type: BLOOD SPECIMEN Ordering Facility: [facility] Address: [address] [place] [address] Performed By: #### 5 7021-8 #### [facility] CLIA [id number] [address] [place] [address] [place] Differential cell count method Nom (Bld) Auto Normal [facility] Comment on above: Order Comment: Speci men Type: BLOOD SPECIMEN Ordering Facility: [facility] Address: [address] [place] [address] Performed By: #### 5 7021-8 #### [facility] CLIA [id number] [address] [place] [address] [place] Eosinophils (Bld) [#/Vol] 0.03 10*3/uL Normal <0.46 [facility] Comment on above: Order Comment: Speci men Type: BLOOD SPECIMEN Ordering Facility: [facility] Address: [address] [place] [address] Performed By: #### 5 7021-8 #### [facility] CLIA [id number] [address] [place] [address] [place] Eosinophils/100 WBC (Bld) 0.5 % Normal [facility] Comment on above: Order Comment: Speci men Type: BLOOD SPECIMEN Ordering Facility: [facility] Address: [address] [place] [address] Performed By: #### 5 7021-8 #### [facility] CLIA [id number] [address] [place] [address] [place] Erythrocyte distribution width (RBC) [Ratio] 12.8 % Normal 11.5-15.0 [facility] Comment on above: Order Comment: Speci men Type: BLOOD SPECIMEN Ordering Facility: [facility] Address: [address] [place], [place] [address] Performed By: #### 5 7021-8 #### [facility] CLIA [id number] [address] [place] [address] [place] Hematocrit (Bld) [Volume fraction] 37.0 % Normal 36.0-46.0 [facility] Comment on above: Order Comment: Speci men Type: BLOOD SPECIMEN Ordering Facility: [facility] Address: [address] [place] [address] Performed By: #### 5 7021-8 #### [facility] CLIA [id number] [address] [place] [address] [place] Hemoglobin (Bld) [Mass/Vol] 12.4 g/dL Normal 11.5-15.5 [facility] Comment on above: Order Comment: Speci men Type: BLOOD SPECIMEN Ordering Facility: [facility] Address: [address] [place] [address] Performed By: #### 5 7021-8 #### [facility] CLIA [id number] [address] [place] [address] [place] Immature granulocytes (Bld) [#/Vol] 10*3/uL Normal <0.10 [facility] Comment on above: Order Comment: Speci men Type: BLOOD SPECIMEN Ordering Facility: [facility] Address: [address] [place] [address] Performed By: #### 5 7021-8 #### [facility] CLIA [id number] [address] [place] [address] [place] Immature granulocytes/100 WBC (Bld) 0.3 % Normal [facility] Comment on above: Order Comment: Speci men Type: BLOOD SPECIMEN Ordering Facility: [facility] Address: [address] [place] [address] Performed By: #### 5 7021-8 #### [facility] CLIA [id number] [address] [place] [address] [place] Lymphocytes (Bld) [#/Vol] 1.31 10*3/uL Normal 1.00-4.00 [facility] Comment on above: Order Comment: Speci men Type: BLOOD SPECIMEN Ordering Facility: [facility] Address: [address] [place] [address] Performed By: #### 5 7021-8 #### [facility] CLIA [id number] [address] [place] [address] [place] Lymphocytes/100 WBC (Bld) 21.3 % Normal [facility] Comment on above: Order Comment: Speci men Type: BLOOD SPECIMEN Ordering Facility: [facility] Address: [address] [place] [address] Performed By: #### 5 7021-8 #### [facility] CLIA [id number] [address] [place] [address] [place] MCH (RBC) [Entitic mass] 28.6 pg Normal 26.0-34.0 [facility] Comment on above: Order Comment: Speci men Type: BLOOD SPECIMEN Ordering Facility: [facility] Address: [address] [place] [address] Performed By: #### 5 7021-8 #### [facility] CLIA [id number] [address] [place] [address] [place] MCHC (RBC) [Mass/Vol] 33.5 g/dL Normal 30.5-36.0 [facility] Comment on above: Order Comment: Speci men Type: BLOOD SPECIMEN Ordering Facility: [facility] Address: [address] [place] [address] Performed By: #### 5 7021-8 #### [facility] CLIA [id number] [address] [place] [address] [place] MCV (RBC) [Entitic vol] 85.5 fL Normal 80.0-100.0 [facility] Comment on above: Order Comment: Speci men Type: BLOOD SPECIMEN Ordering Facility: [facility] Address: [address] [place] [address] Performed By: #### 5 7021-8 #### [facility] CLIA [id number] [address] [place] [address] [place] Monocytes (Bld) [#/Vol] 0.25 10*3/uL Normal <0.87 [facility] Comment on above: Order Comment: Speci men Type: BLOOD SPECIMEN Ordering Facility: [facility] Address: [address] [place] [address] Performed By: #### 5 7021-8 #### [facility] CLIA [id number] [address] [place] [address] [place] Monocytes/100 WBC (Bld) 4.1 % Normal [facility] Comment on above: Order Comment: Speci men Type: BLOOD SPECIMEN Ordering Facility: [facility] Address: [address] [place] [address] Performed By: #### 5 7021-8 #### [facility] CLIA [id number] [address] [place] [address] [place] Neutrophils (Bld) [#/Vol] 4.53 10*3/uL Normal 1.45-7.50 [facility] Comment on above: Order Comment: Speci men Type: BLOOD SPECIMEN Ordering Facility: [facility] Address: [address] [place] [address] Performed By: #### 5 7021-8 #### [facility] CLIA [id number] [address] [place] [address] [place] Neutrophils/100 WBC (Bld) 73.5 % Normal [facility] Comment on above: Order Comment: Speci men Type: BLOOD SPECIMEN Ordering Facility: [facility] Address: [address] [place] [address] Performed By: #### 5 7021-8 #### [facility] CLIA [id number] [address] [place] [address] [place] Nucleated RBC (Bld) [#/Vol] 10*3/uL Normal <0.01 [facility] Comment on above: Order Comment: Speci men Type: BLOOD SPECIMEN Ordering Facility: [facility] Address: [address] [place] [address] Performed By: #### 5 7021-8 #### [facility] CLIA [id number] [address] [place] [address] [place] Nucleated RBC/100 WBC (Bld) [Ratio] 0.0 /100 WBC Normal [facility] Comment on above: Order Comment: Speci men Type: BLOOD SPECIMEN Ordering Facility: [facility] Address: [address] [place] [address] Performed By: #### 5 7021-8 #### [facility] CLIA [id number] [address] [place] [address] [place] Platelet mean volume (Bld) [Entitic vol] 9.1 fL Normal 9.0-12.7 [facility] Comment on above: Order Comment: Speci men Type: BLOOD SPECIMEN Ordering Facility: [facility] Address: [address] [place] [address] Performed By: #### 5 7021-8 #### [facility] CLIA [id number] [address] [place] [address] [place] Platelets (Bld) [#/Vol] 217 10*3/uL Normal 150-400 [facility] Comment on above: Order Comment: Speci men Type: BLOOD SPECIMEN Ordering Facility: [facility] Address: [address] [place] [address] Performed By: #### 5 7021-8 #### [facility] CLIA [id number] [address] [place] [address] [place] RBC (Bld) [#/Vol] 4.33 10*6/uL Normal 3.90-5.20 [facility] Comment on above: Order Comment: Speci men Type: BLOOD SPECIMEN Ordering Facility: [facility] Address: [address] [place] [address] Performed By: #### 5 7021-8 #### [facility] CLIA [id number] [address] [place] [address] [place] WBC (Bld) [#/Vol] 6.16 10*3/uL Normal 3.70-11.00 [facility] Comment on above: Order Comment: Speci men Type: BLOOD SPECIMEN Ordering Facility: [facility] Address: [address] [place] [address] Performed By: #### 5 7021-8 #### [facility] CLIA [id number] [address] [place] [address] [place] HBV surface Ag Ser Qlon 10-30 HBV surface Ag Ql (S) Negative Normal Negative [facility] Comment on above: Order Comment: Speci men Type: BLOOD SPECIMEN Ordering Facility: [facility] Address: [address] [place] [address] Performed By: #### 5 195-3, 41705-5, 85389-4 #### [facility] CLIA [id number] [address] [place] [address] [place] HCV Ab Ser Qlon 11-25-2024 HCV Ab Ql (S) Negative Normal Negative [facility] Comment on above: Order Comment: Speci men Type: BLOOD SPECIMEN Ordering Facility: [facility] Address: [address] [place] [address] Result Comment: The result suggests no evidence of infection with Hepatitis C virus. Should recent infection be suspected, repeat testing may be considered 4-6 weeks after this draw. Performed By: #### 1 6128-1 #### [facility] CLIA [id number] [address] [place] [address] [place] HIV 1+2 Ab IA Qlon HIV 1 and 2 Ab IA.rapid Nom (S/P/Bld) Normal [facility] Comment on above: Order Comment: Speci men Type: BLOOD SPECIMEN Ordering Facility: [facility] Address: [address] [place] [address] Result Comment: Test not indicated. Performed By: #### 5 195-3, 86496-5, 76716-8 #### [facility] CLIA [id number] [address] [place] [address] [place] HIV 1+2 Ab+HIV1 p24 Ag IA Ql Non-Reactive Normal Nonreactive [facility] Comment on above: Order Comment: Speci men Type: BLOOD SPECIMEN Ordering Facility: [facility] Address: [address] [place] [address] Performed By: #### 5 195-3, 60546-7, 62480-0 #### [facility] CLIA [id number] [address] [place] [address] [place] HIV immunoassay testing algorithm interpretation (S/P/Bld) [Interp] Normal [facility] Comment on above: Order Comment: Speci men Type: BLOOD SPECIMEN Ordering Facility: [facility] Address: [address] [place] [address] Result Comment: No e vidence of HIV-1 or HIV-2 infection. Should recent infection be suspected, repeat testing may be considered 2-3 weeks after this draw. [place] Rev. Code 3701.243(E): This information has been [...] or diagnoses. Performed By: #### 5 195-3, 00899-5, 94584-3 #### [facility] CLIA [id number] [address] [place] [address] [place] HbA1c (Bld)on 11-25-2024 Average glucose Estimated from glycated hemoglobin (Bld) [Mass/Vol] 100 mg/dL Normal [facility] Comment on above: Order Comment: Speci men Type: SWAB Ordering Facility: [facility] Address: [address] [place] [address] Result Comment: eAG: (Estimated average glucose) is a calculated value from HgbA1c and is utility sales representative of the average blood glucose level in the last 2-3 month period. Performed By: #### T RVAMP, 96053-3 #### [facility] CLIA [id number] [address] [place] [address] [place] HbA1c (Bld) [Mass fraction] 5.1 % Normal 4.3-5.6 [facility] Comment on above: Order Comment: Speci [facility] Type: SWAB Ordering Facility: [facility] Address: [address] [place] [address] Result Comment: Amer ican Diabetes Association guidelines indicate that patients with HgbA1c in the range 5.7-6.4% are at increased risk for development of diabetes, and intervention by lifestyle modification may be beneficial. HgbA1c greater or equal to 6.5% is considered diagnostic of diabetes. Performed By: #### T RVAMP, 44078-2 #### [facility] CLIA [id number] [address] [place] [address] [place] RUBELLA IGG ANTIBODYon 11-25 RUBELLA IGG AB, QUAL Positive Normal Positive [facility] Comment on above: Order Comment: Speci [facility] Type: BLOOD SPECIMEN Ordering Facility: [facility] Address: [address] [place] [address] Result Comment: The result suggests recent or past exposure to Rubella virus or history of Rubella vaccination. Positive result may also be seen due to presence of passively-transferred antibodies. Please correlate with patient's history. Performed By: #### R UBIGG #### [facility] CLIA [id number] [address] [place] [address] [place] Reagin and Treponema pallidu m IgG and IgM [Interp]on 11-25-2024 T. pallidum IgG+IgM IA Ql (S) Non-Reactive Normal Nonreactive [facility] Comment on above: Order Comment: Speci men Type: BLOOD SPECIMEN Ordering Facility: [facility] Address: [address] [place] [address] Performed By: #### 5 195-3, 21897-0, 15975-0 #### [facility] CLIA [id number] [address] [place] [address] [place] Reagin+T pallidum IgG+IgM Se rPl-Impon 11-25-2024 Reagin and Treponema pallidum IgG and IgM [Interp] Cannot exclude recent Treponemal infection if specimen collected within 7-10 days after appearance of suspect lesions or 2-3 weeks after an exposure. Clinical correlation is required. Normal [facility] Comment on above: Order Comment: Speci men Type: BLOOD SPECIMEN Ordering Facility: [facility] Address: [address] [place] [address] Performed By: #### 5 195-3, 18870-9, 92903-9 #### [facility] CLIA [id number] [address] [place] [address] [place] TYPE + SCREEN PRENATALon ABO O Normal [facility] Comment on above: Order Comment: Speci men Type: BLOOD SPECIMEN Ordering Facility: [facility] Address: [address] [place] [address] Performed By: #### 5 7021-8 #### [facility] CLIA [id number] [address] [place] [address] [place] Rh Nom (Bld) Positive Normal [facility] Comment on above: Order Comment: Speci men Type: BLOOD SPECIMEN Ordering Facility: [facility] Address: [address] [place] [address] Performed By: #### 5 7021-8 #### [facility] CLIA [id number] [address] [place] [address] [place] TYPE AND SCREEN EXPIRATION 11/28/2024 23:59 Normal [facility] Comment on above: Order Comment: Speci men Type: BLOOD SPECIMEN Ordering Facility: [facility] Address: [address] [place] [address] Performed By: #### 5 7021-8 #### [facility] CLIA [id number] [address] [place] [address] [place] Bacteria Ur Culton Bacteria identified Cx Nom (U) CULTURE, URINE: No growth (<1,000 CFU/ml) Normal [facility] Comment on above: Performed By: #### 5 7021-8 #### [facility] CLIA [id number] [address] [place] [address] [place] C. trachomatis+N. gonorrhoea e DNA TALITA+probe Ql (Unsp spec)on 10-28-2024 C. trachomatis rRNA TALITA+probe Ql (Unsp spec) Not detected Normal Not detected [facility] Comment on above: Order Comment: Speci men Type: SWAB Ordering Facility: [facility] Address: [address] [place] [address] Performed By: #### T RVAMP, 29677-4 #### [facility] CLIA [id number] [address] [place] [address] [place] N. gonorrhoeae rRNA TALITA+probe Ql (Unsp spec) Not detected Normal Not detected [facility] Comment on above: Order Comment: Speci men Type: SWAB Ordering Facility: [facility] Address: [address] [place] [address] Performed By: #### T RVAMP, 51436-0 #### [facility] CLIA [id number] [address] [place] [address] [place] PAP TESTon 10-28-2024 ADEQUACY Normal [facility] Comment on above: Order Comment: Speci men Type: BLOOD SPECIMEN Ordering Facility: [facility] Address: [address] [place] [address] Result Comment: Sati sfactory for interpretation. Transformation zone present Performed By: #### 5 7021-8 #### [facility] CLIA [id number] [address] [place] [address] [place] CASE REPORT Normal [facility] Comment on above: Order Comment: Speci men Type: BLOOD SPECIMEN Ordering Facility: [facility] Address: [address] [place] [address] Result Comment: Gyne cologic Cytology Report Case: [id number] Authorizing Provider: Travis Inman APRN.CUT OUT OPERATOR Collected: 10/28/2024 10:18 AM Ordering Location: OB/Gynecology Received: 10/28/2024 11:50 AM First Screen: Sarah, Love, CT, ASCP Specimen: Pap Test, ThinPrep, Cervix Performed By: #### 5 7021-8 #### [facility] CLIA [id number] [address] [place] [address] [place] CLINICAL HISTORY, CYTOLOGY, MILK COLLECTOR Routine Exam Normal [facility] Comment on above: Order Comment: Speci men Type: BLOOD SPECIMEN Ordering Facility: [facility] Address: [address] [place] [address] Performed By: #### 5 7021-8 #### [facility] CLIA [id number] [address] [place] [address] [place] FINAL PERFORMING LAB Normal [facility] Comment on above: Order Comment: Speci men Type: BLOOD SPECIMEN Ordering Facility: [facility] Address: [address] [place] [address] Result Comment: Tech nical component, analog ic design architect screening performed at: [facility], [address] [place] [address] CLIA: [id number] Diagnostic interpretation performed at: [facility], [address] [place] [address] CLIA# [id number] Supervisor Dry Paste: Francisco J Main MD Performed By: #### 5 7021-8 #### [facility] CLIA [id number] [address] [place] [address] [place] INTERPRETATION, CYTOLOGY, MILK COLLECTOR Normal [facility] Comment on above: Order Comment: Speci men Type: BLOOD SPECIMEN Ordering Facility: [facility] Address: [address] [place] [address] Result Comment: Nega tive for intraepithelial lesion or malignancy. at 1159 EDT Performed By: #### 5 7021-8 #### [facility] CLIA [id number] [address] [place] [address] OF [place] LMP 09/01/2024 Normal [facility] Comment on above: Order Comment: Speci men Type: BLOOD SPECIMEN Ordering Facility: [facility] Address: [address] [place] [address] Performed By: #### 5 7021-8 #### [facility] CLIA [id number] [address] [place] [address] PAP DISCLAIMER COMMENT The Pap Smear is a screening test for cervical cancer. False negative results occur with all screening tests, emphasizing the need for rescreening at recommended intervals, and clinical correlation. Normal [facility] Comment on above: Order Comment: Speci men Type: BLOOD SPECIMEN Ordering Facility: [facility] Address: [address] [place] [address] Performed By: #### 5 7021-8 #### [facility] CLIA [id number] [address] [place] [address] PAP OPERATIONS PLANNER COMMENT This specimen has been analyzed by the ThinPrep Imaging System, an automated imaging and review system, which assists the laboratory in evaluating cells on ThinPrep Pap tests. Following automated imaging, selected raymundo from every slide are reviewed by a analog ic design architect. Normal [facility] Comment on above: Order Comment: Speci men Type: BLOOD SPECIMEN Ordering Facility: [facility] Address: [address] [place] [address] Performed By: #### 5 7021-8 #### [facility] CLIA [id number] [address] [place] [address] [place] POC PROGRAMMER OR ANALYST ULTRASOUNDon 10-29-19 Indication Viability; confirm cardiac activity [...] Read By: Travis Inman NP MATERNAL MEDICINE [facility] Radiology Study observation (narrative) [facility] TRICHOMONAS VAGINALIS NAATon 10-28-2024 T. vaginalis DNA TALITA+probe Ql (Unsp spec) Not detected Normal Not detected [facility] Comment on above: Order Comment: Speci men Type: SWAB Ordering Facility: [facility] Address: [address] [place] [address] Performed By: #### T RVAMP, 44116-1 #### [facility] CLIA [id number] [address] [place] [address] [place] Laboratory - Chemistry and C hemistry - challengeon 10-12-2024 Beta HCG ( test) Ql (U) Positive Abnormal [facility] Office Visit Reporton 2024 Office Visit Report [address] [place] [address] OFFICE VISIT Date of Service: 10/07/24 MR#: [id number] Acct: [id number] Patient: ROBI MASTERS Rep #: [id number] : 1995 Provider: CAROLINE Dorsey Age/Sex: 29/F Location: [facility] Status: Signed with Addenda ADDENDUM by VALENTIN Terry on 10/12/24 at 1112 Office Procedure Documentation entered by Hollie Terry MA 10/12/24 11:12: [facility] Billing Sheet Testing Respirator Fit Testing: Yes Date cc: * Signed Intake Vital Signs 10/02/24 14:44 Height 5 ft 1 in Intake Visit Reasons: FIT TEST/ ACTION COUPLING Chief Complaint: N95 fit test Lab Manager Required: No Allergies No Known Allergies Allergy (Verified 10/07/24 09:14) 10/07/24 0956 Date Rolando Quintana Signature: Date (if applicable) CC: Normal [facility] Office Visit Reporton 2023 Office Visit Report [facility] [address] [place] [address] OFFICE VISIT Date of Service: 09/26/23 MR#: [id number] Acct: [id number] Patient: ROBI MASTERS Rep #: [id number] : 1995 Provider: CAROLINE Bajwa Age/Sex: 29/F Location: [facility] Status: Signed Intake Vital Signs 06/16/21 15:42 09/25/23 11:59 Height 5 ft 1 in 5 ft 1 in Intake Visit Reasons: RESPIRATORY QUEST/FIT TEST Allergies No Known Allergies Allergy (Verified 06/19/21 10:32) Office Procedures [facility] Billing Sheet Testing Respirator Fit Testing: Yes 03/30/24 1707 Date Reg Quintana Signature: Date (if applicable) CC: Normal [facility] Laboratory - Microbiology an d Antimicrobial susceptibilityon 08-12-2023 FLUAV Ag IA Ql (Throat) Negative Normal [facility]. S. pyogenes Ag EIA Ql (Throat) Negative Normal [facility] [employer] SARS-CoV-2 (COVID-19) RNA TALITA+probe Ql (Unsp spec) Negative Normal [facility] [employer] [place]. EMERGENCY REPORTon 3 EMERGENCY REPORT [facility] EMERGENCY ROOM REPORT NAME ACCOUNT SEX AGE ADMIT DISCHARGE PT MED. RECORD# NUMBER DATE DATE TYPE ROBI MASTERS [id number] F 27 03/13/23 03/13/23 3 [id number] ROOM: ER DATE OF : 1995 DICTATING [...] Daron Lehman DO 03/13/23 23:55 JOB #: [id number] Transcribed By: am 03/14/23 12:20 Electronically signed by: MILTON Lehman DO 03/17/23 12:04 Page 2 of 2 ROBI MASTERS Emergency Room Report Normal [facility] ANKLE COMPLETE RTon 03-13-20 23 ANKLE COMPLETE RT [address] [address] Patient: SONAMSTEPHANIEEL Phone#: : 1995 Age: 27 Gender: F Pt. Type: ER Account: [id number] Location: 052 Ordering: DR. JAYCE BUCKNER Exam Date: 03/13/2023/18:50 Family Phys: TORI ESTRADA Charge Code: 694014 Physician: Merrick Order #: [id number] Dose#: PROCEDURE: X-RAY ANKLE COMPLETE RT MIN [...] Womack MD on 03/14/2023 at 8:53 Normal [facility] FOOT COMPLETE RTon FOOT COMPLETE RT [place] [address] Patient: ROBI MASTERS Phone#: : 1995 Age: 27 Gender: F Pt. Type: ER Account: [id number] Location: 052 Ordering: DR. JAYCE BUCKNER Exam Date: 03/13/2023/18:55 Family Phys: TORI ESTRADA Charge Code: 569474 Physician: Merrick Order #: [id number] Dose#: PROCEDURE: X-RAY FOOT RT COMPLETE MIN 3 VIEWS COMPARISON: None. INDICATIONS: Pain. FINDINGS: BONES: Normal. No significant arthropathy or acute abnormality. SOFT TISSUES: Negative. No visible soft tissue swelling. EFFUSION: None visible. OTHER: Negative. CONCLUSION: No acute disease. Dictated by: Dia Womack MD on 03/14/2023 at 8:53 Approved by: Dia Womack MD on 03/14/2023 at 8:54 Normal [facility] BV/VAGINITIS PANEL DNA PROBE on 03-09-2022 MARIFER: Detected Abnormal NOT DETECTED [facility] Comment on above: Performed By: #### 3 99, 15961 #### [facility] of [address], [address] [place] [address] Helicopter Technician: Ralph Salguero MD GARDNERELLA: Not detected Normal NOT DETECTED [facility] Comment on above: Performed By: #### 3 , 26967 #### [facility] [address], [address] [place] [address] Helicopter Technician: Ralph Salguero MD TRICHOMONAS: Not detected Normal NOT DETECTED [facility] Comment on above: Performed By: #### 3 , 13263 #### [facility] [address], [address] [place] [address] Helicopter Technician: Ralph Salguero MD CULTURE, URINE, ROUTINEon CULTURE, URINE, ROUTINE SEE NOTE Abnormal [facility] Comment on above: Result Comment: CULTURE, URINE, ROUTINE Micro Number: [id number] Test Status: Final Specimen Source: Vag Specimen [...] of women. Performed By: #### 3 , 73762 #### [facility] of [address], [address] [place] [address] Helicopter Technician: Ralph Salguero MD Laboratory - Chemistry and C hemistry - challengeon 03-07-2022 Bilirubin Ql (U) small Abnormal [facility] Ketones Ql (U) trace Normal [facility] pH (U) 6.0 [pH] Normal [facility] Specific gravity (U) [Rel density] >=1.030 Normal [facility] [facility]. Urobilinogen Qn (U) 0.2 mg/dL Normal [facility] [employer]. Laboratory - Hematology and Cell countson 03-07-2022 Hemoglobin Ql (U) Negative Normal [facility]. Laboratory - Specimen inform ationon 03-07-2022 Appearance (U) clear [facility] [employer]. Color (U) yellow Normal [facility] [facility]. Laboratory - Urinalysison Glucose Test strip (U) [Mass/Vol] Negative Normal [facility] [facility]. Leukocyte esterase Test strip Ql (U) trace Normal [facility]. Nitrite Ql (U) Negative Normal [facility] [employer] [facility]. Protein Ql (U) trace Normal [facility] [employer]. No Panel Informationon 03-07 MARIFER: Detected Abnormal [facility] [employer] [facility] [facility] CULTURE, URINE, ROUTINE SEE NOTE Abnormal [facility] [employer]. GARDNERELLA: Not detected Normal [facility] [employer]. TRICHOMONAS: Not detected [facility] [email or web address]; [employer]. Progress Noteon 02-01-2020 [employer] Authentication Interface Message Text Maternal Medicine Consult [...] on phone: None Gets together: None Attends hoahaoism service: None Active member of club or [...] No Muscular Dystrophy No Cystic Fibrosis No [place]'s Chorea No Intellectual Disability/Autism No Metabolic Disorder [...] mg by mouth 2 times daily Vit w/Nw-Wgfbyscjj-RS (PNV PO) Take by mouth No facility-administere [...] was spent counseling and coordinating care. Normal [facility] Vital Signs Date Time Vital Sign Value Performing Clinician Facility 03-17-2025 10:38-0400 Body mass index (BMI) [Ratio] 21.65 kg/m2 Yarely Brady MD Work Phone: [facility] 03-17-2025 10:38-0400 Body weight 53.71 kg Yarely Brady MD Work Phone: [facility] 03-17-2025 10:38-0400 Diastolic blood pressure 80 mm[Hg] Yarely Brady MD Work Phone: [facility] 03-17-2025 10:38-0400 Systolic blood pressure 120 mm[Hg] Yarely Brady MD Work Phone: [facility] 01-14-2025 15:47-0400 Body mass index (BMI) [Ratio] 20.48 kg/m2 Tori Vega MD Work Phone: [facility] 01-14-2025 15:47-0400 Body weight 50.8 kg Tori Vega MD Work Phone: [facility] 01-14-2025 15:47-0400 Diastolic blood pressure 58 mm[Hg] Tori Vega MD Work Phone: [facility] 01-14-2025 15:47-0400 Systolic blood pressure 96 mm[Hg] Tori Vega MD Work Phone: [facility] 11-25-2024 15:14-0400 Body mass index (BMI) [Ratio] 20.66 kg/m2 Ophelia Lopez MD Work Phone: [facility] 11-25-2024 15:14-0400 Body weight 51.26 kg Ophelia Lopez MD Work Phone: [facility] 11-25-2024 15:14-0400 Diastolic blood pressure 60 mm[Hg] Ophelia Lopez MD Work Phone: [facility] 11-25-2024 15:14-0400 Systolic blood pressure 98 mm[Hg] Ophelia Lopez MD Work Phone: [facility] 10-28-2024 09:46-0400 Body height 157.5 cm Travis Haury WOOD WEB WEAVING MACHINE OPERATOR.CUT OUT OPERATOR Work Phone: [facility] 10-28-2024 09:46-0400 Body mass index (BMI) [Ratio] 20.99 kg/m2 Travis Haury WOOD WEB WEAVING MACHINE OPERATOR.CUT OUT OPERATOR Work Phone: [facility] 10-28-2024 09:46-0400 Body weight 52.07 kg Travis Haury WOOD WEB WEAVING MACHINE OPERATOR.CUT OUT OPERATOR Work Phone: [facility] 10-28-2024 09:46-0400 Diastolic blood pressure 70 mm[Hg] Travis Haury WOOD WEB WEAVING MACHINE OPERATOR.CUT OUT OPERATOR Work Phone: [facility] 10-28-2024 09:46-0400 Systolic blood pressure 112 mm[Hg] Travis Haury WOOD WEB WEAVING MACHINE OPERATOR.CUT OUT OPERATOR Work Phone: [facility] 10-12-2024 11:20-0400 Body height 160.02 cm Caren Solo LPN [facility], [facility]. 10-12-2024 11:20-0400 Body mass index (BMI) [Ratio] 20.37 kg/m2 Caren Solo LPN [facility], [facility] 10-12-2024 11:20-0400 Body surface area Derived from formula 1.53 m2 Caren Solo LPN [facility], [facility].; [facility]. 10-12-2024 11:20-0400 Body temperature 98.5 [degF] Caren Hernandez Germania PRODUCTION WELDING SUPERVISOR [facility]. Comment on above: Method: Tympanic 10-12-2024 11:20-0400 Body weight 52.16 kg Caren M Germania CROWDER [facility]. 10-12-2024 11:20-0400 Diastolic blood pressure 61 mm[Hg] Caren Hernandez Germania CROWDER [facility].; [facility]. Comment on above: Patient Position: Sitting; Cuff Location : Left Arm; Cuff Size: Standard 10-12-2024 11:20-0400 Heart rate 56 /min Caren Solo LPN [facility].; [employer]. Comment on above: Pattern: Regular 10-12-2024 11:20-0400 Inhaled oxygen concentration 21 % Caren Solo LPMorton Plant [facility] HospitalNextMusic.[facility].; [employer]. Comment on above: Room air 10-12-2024 11:20-0400 SaO2% (BldA) [Mass fraction] 100 % Caren David Germania PRODUCTION WELDING SUPERVISOR [place] [facility].; [employer]. 10-12-2024 11:20-0400 Systolic blood pressure 97 mm[Hg] Caren M Germania CROWDER [place] [facility].; [employer]. Comment on above: Patient Position: Sitting; Cuff Location : Left Arm; Cuff Size: Standard 08-12-2023 11:51-0500 Body height 160.[address] RN [place] [facility].; [employer]. 08-12-2023 11:51-0500 Body mass index (BMI) [Ratio] 19.49 kg/m2 Bambi [address] RN [place] [facility].; [employer]. 08-12-2023 11:51-0500 Body surface area Derived from formula 1.[address] RN [place] [facility].; [employer]. 08-12-2023 11:51-0500 Body temperature 97.9 [degF] Bambi Street RN [place] [facility].; [employer]. Comment on above: Method: Tympanic 08-12-2023 11:51-0500 Body weight 49.[address] RN [place] [employer] 08-12-2023 11:51-0500 Diastolic blood pressure 59 mm[Hg] Bambi Street RN [employer].; [employer]. Comment on above: Patient Position: Sitting; Cuff Location : Left Arm; Cuff Size: Standard 08-12-2023 11:51-0500 Heart rate 64 /min Bambi Street RN [place] [employer]. Comment on above: Pattern: Regular 08-12-2023 11:51-0500 Inhaled oxygen concentration 20 % Bambi [address] RN [employer]. Comment on above: Room air 08-12-2023 11:51-0500 Inhaled oxygen concentration 21 % Bambi [address] RN [place] [employer]. Comment on above: Room air 08-12-2023 11:51-0500 SaO2% (BldA) [Mass fraction] 99 % Bambi [address] RN [place] [employer]. 08-12-2023 11:51-0500 Systolic blood pressure 93 mm[Hg] Bambi Street RN [employer].; [employer]. Comment on above: Patient Position: Sitting; Cuff Location : Left Arm; Cuff Size: Standard 03-20-2023 13:03-0400 Body height 160.02 cm Radha Gomez MA [employer] [facility].; [employer]. 03-20-2023 13:03-0400 Body mass index (BMI) [Ratio] 18.95 kg/m2 Radha Gomez MA [place] [employer]. 03-20-2023 13:03-0400 Body surface area Derived from formula 1.48 m2 Radha Gomez MA [facility], Inc.; [place] [employer] 03-20-2023 13:03040 Body weight 48.54 kg Radha Gomez MA [facility], [facility].; [employer] 03-20-2023 13:03-0400 Diastolic blood pressure 68 mm[Hg] Radha Gomez MA [facility], [facility].; [employer] Comment on above: Patient Position: Sitting; Cuff Location : Left Arm; Cuff Size: Standard 03-20-2023 13:03-0400 Heart rate 73 /min Radha Gomez MA [facility], [facility].; [employer] Comment on above: Pattern: Regular 03-20-2023 13:03-0400 Systolic blood pressure 106 mm[Hg] Radha Gomez MA [facility], [facility].; [employer] Comment on above: Patient Position: Sitting; Cuff Location : Left Arm; Cuff Size: Standard 03-07-2022 13:55-0400 Body height 160.02 cm Huong Turner LPN [facility], [facility].; [place] [facility], [facility]. 03-07-2022 13:55-0400 Body mass index (BMI) [Ratio] 20.19 kg/m2 Huong Turenr LPN [facility], [facility].; [employer] 03-07-2022 13:55-0400 Body surface area Derived from formula 1.52 m2 Huong Turner LPN [facility], [facility].; [employer] 03-07-2022 13:55-0400 Body temperature 98.6 [degF] Huong Turner LPN [facility]Next[facility].; [employer], [place]. Comment on above: Method: Tympanic 03-07-2022 13:55-0400 Body weight 51.71 kg Huong Turner LPN [facility], [facility].; [employer] 03-07-2022 13:55-0400 Diastolic blood pressure 71 mm[Hg] Huong Turner LPN [facility], [facility].; [employer]. Comment on above: Patient Position: Sitting; Cuff Location : Left Arm; Cuff Size: Standard 03-07-2022 13:55-0400 Heart rate 75 /min Huong Turner LPN [facility].; [employer]. Comment on above: Pattern: Regular 03-07-2022 13:55-0400 Systolic blood pressure 113 mm[Hg] Huong uTrner LPN [facility] [employer] [place].; [employer]. Comment on above: Patient Position: Sitting; Cuff Location : Left Arm; Cuff Size: Standard 05-31-2021 09:16-0500 Body height 160.02 cm Tori Estrada PA-C Work Phone: [facility] [employer] [place].; [employer]. 05-31-2021 09:16-0500 Body mass index (BMI) [Ratio] 18.78 kg/m2 Tori Estrada PA-C Work Phone: [employer].; [employer]. 05-31-2021 09:16-0500 Body surface area Derived from formula 1.48 m2 Tori Estrada PA-C Work Phone: [employer].; [employer]. 05-31-2021 09:16-0500 Body weight 48.08 kg Tori Estrada PA-C Work Phone: [employer].; [employer]. 05-31-2021 09:16-0500 Diastolic blood pressure 72 mm[Hg] Tori Estrada PA-C Work Phone: [employer].; [employer]indie. Comment on above: Patient Position: Sitting; Cuff Location : Left Arm; Cuff Size: Standard 05-31-2021 09:16-0500 Heart rate 69 /min Tori Estrada PA-C Work Phone: [employer].; [employer]. Comment on above: Pattern: Regular 05-31-2021 09:16-0500 Systolic blood pressure 117 mm[Hg] Tori Estrada PA-C Work Phone: [facility], [facility].; [facility], [facility]. Comment on above: Patient Position: Sitting; Cuff Location : Left Arm; Cuff Size: Standard Encounters Encounter Date Encounter Type Care Provider Facility Start: 05-05-2025 End: 05-05-2025 ambulatory TORI VEGA Facility:[facility] [place] Start: 04-21-2025 End: 04-21-2025 ambulatory YARELY BRIAN Facility:[facility] [place] Start: 04-14-2025 End: 04-14-2025 ambulatory YARELY ADENWIN Facility:[facility] [place] Start: 03-24-2025 End: 03-24-2025 ambulatory YARELY BRADY Facility:[facility] [place] Start: 03-17-2025 End: 03-17-2025 ambulatory YARELYSINGH BRADY Facility:[facility] [place] Start: 03-17-2025 End: 03-17-2025 Patient encounter procedure Yarely Brady MD Work Phone: OB/Gynecology Comment on above: Screening for diabet es mellitus (Primary Dx); 28 weeks gestation of (HCC); Supervision of high risk in second trimester (HCC); Need for vaccination Start: 01-14-2025 End: 01-14-2025 ambulatory TORI VEGA Facility:[facility] [place] Start: 01-14-2025 End: 01-14-2025 Patient encounter procedure Whi Tech 1 Senior Information Security Analyst [employer] [facility]aternal [facility] Comment on [...] Start: 11-25-2024 End: 11-25-2024 ambulatory TRAVISJESSE INMAN Facility:[facility] [place] Start: 11-02-2024 End: 01-02-2025 Follow-up encounter Travis Garciarodrigo BECKMANCUT OUT OPERATOR Work Phone: OB/Gynecology Start: 10-28-2024 End: 10-28-2024 Patient encounter procedure Travis Garciarodrigo BECKMANCUT OUT OPERATOR Work Phone: OB/Gynecology Comment on above: Encounter [...] during (HCC) Start: 10-28-2024 End: 10-28-2024 [facility]ulatory [facility] Facility[facility] [place] Start: 10-12-2024 End: 10-12-2024 Office outpatient visit 15 minutes Tori Estrada PA-C Work Phone: [employer]. Start: 10-07-2024 End: 10-07-2024 ambulatory Tori Estrada Facility:[facility] Start: 08-12-2023 End: 08-12-2023 Office outpatient visit 15 minutes Tori Estrada PA-C Work Phone: [employer]. Start: 03-20-2023 End: 03-20-2023 Periodic preventive med est patient 18-39 yrs Tori Estrada PA-C Work Phone: [employer]. Start: 03-20-2023 End: 03-20-2023 Physical examination Tori Estrada PA-C Work Phone: [employer]; [employer]. Start: 03-13-2023 End: 03-13-2023 Emergency department patient visit JAYCE GAMBOA [facility] Start: 03-09-2022 End: 03-09-2022 Medication Tori VELAZQUEZ-C Work Phone: [employer] [facility] [employer] [place]. Start: 03-07-2022 End: 03-07-2022 Office outpatient visit 15 minutes Tori VELAZQUEZ-C Work Phone: [employer]. Start: 05-31-2021 End: 05-31-2021 Office outpatient new 30 minutes Tori VELAZQUEZ-C Work Phone: [employer] Physical examination Tori VELAZQUEZ-C Work Phone: [employer] [facility] [employer]; [employer] [facility] Procedures Date Procedure Procedure Detail Performing Clinician Start: 01-14-2025 Us preg uterus after 1st trimest 1/ gestation Travis Inman APRN.CUT OUT OPERATOR Work Phone: Start: 11-25-2024 Antibody screen TORI VEGA Comment on above: Order Comment: Speci men Type: BLOOD SPECIMEN Ordering Facility: [facility] Address: [address] [place] [address] Performed By: #### 5 [id number] #### [facility] [id number] [address] [place] [address] [place] Start: 10-28-2024 Us uterus limited 1/> fetuses Travis Inman APRN.CUT OUT OPERATOR Work Phone: Start: 03-20-2023 End: 03-20-2023 Depression screening Tori VELAZQUEZ-C Work Phone: Start: 03-20-2023 End: 03-20-2023 Scr dep neg, no plan reqd Tori VELAZQUEZ-C Work Phone: Start: 03-07-2022 End: 03-07-2022 No Known Past Surgical History Radha Gomez MA Plan of Treatment Date Care Activity Detail Author Start: 03-17-2035 Urine microalbumin profile DTaP,Tdap,Td Vaccine (2 - Td or Tdap) [facility] Start: 10-29-2027 Screening for malignant neoplasm of cervix Cervical Cancer Screening [facility] Start: 04-14-2025 End: 04-14-2025 Patient encounter procedure 04/14/2025 8:10 AM EDT Routine Office Visit OB/Gynecology [address] [place] [address] Yarely Brady MD [address] [place] [address] OB OB/Gynecology Comment on above: OB Start: 04-13-2025 RSV Vaccine (1 - Ris k 1-dose series) RSV Vaccine (1 - Risk 1-dose series) [facility] Start: 03-17-2025 End: 06-16-2025 ANEMIA REFLEX PANEL [facility] Comment on above: Expected: 03/17/2025 , Expires: 06/16/2025 Start: 03-17-2025 End: 03-17-2026 SYPHILIS TREPONEMAL W/REFLEX [facility] Work Phone: Comment on above: Expected: 03/17/2025 , Expires: 03/17/2026 Start: 03-01-2025 Influenza vaccination [facility] Start: 02-10-2025 End: 02-10-2025 Patient encounter procedure 02/10/2025 3:10 PM EDT Routine Office Visit OB/Gynecology [address] [place] [address] Tori Vega MD [address] [place] [address] OB OB/Gynecology Comment on above: OB Start: 01-14-2025 End: 01-14-2025 Patient encounter procedure Maternal Medicine Comment on above: anatomy ob Start: 12-09-2024 End: 12-09-2024 Patient encounter procedure 12/09/2024 8:30 AM EDT Routine Office Visit Maternal Medicine [address] [place] [id number] [facility] Comment on above: [facility] Start: 11-25-2024 End: 11-25-2024 Patient encounter procedure 11/25/2024 3:20 PM EDT Routine Office Visit OB/Gynecology [address] [place] [address] Ophelia Epstein MD [address] [place] [address] New Pt OB/Gynecology Comment on above: New Pt Start: 10-28-2024 End: 01-27-2025 ANEMIA REFLEX PANEL ANEMIA REFLEX PANEL Lab Routine Encounter for supervision of high risk in first trimester, antepartum (HCC) Expected: 10/28/2024, Expires: 01/27/2025 [facility] Work Phone: Comment on above: Expected: 10/28/2024 , Expires: 01/27/2025 Start: 10-28-2024 End: 01-27-2025 Hemoglobin A1c in Blood HEMOGLOBIN A1C Lab Routine Encounter for supervision of high risk in first trimester, antepartum (HCC) Expected: 10/28/2024, Expires: 01/27/2025 [facility] Comment on above: Expected: 10/28/2024 , Expires: 01/27/2025 Start: 10-28-2024 End: 01-27-2025 Hepatitis B virus surface Ag [Presence] in Serum HEPATITIS B SURFACE ANTIGEN Lab Routine Encounter for supervision of high risk in first trimester, antepartum (HCC) Expected: 10/28/2024, Expires: 01/27/2025 [facility] Comment on above: Expected: 10/28/2024 , Expires: 01/27/2025 Start: 10-28-2024 End: 01-27-2025 Hepatitis C virus Ab [Presence] in Serum HEPATITIS C ANTIBODY IA WITH CONFIRMATION Lab Routine Encounter for supervision of high risk in first trimester, antepartum (HCC) Expected: 10/28/2024, Expires: 01/27/2025 [facility] Comment on above: Expected: 10/28/2024 , Expires: 01/27/2025 Start: 10-28-2024 End: 01-27-2025 HIV 1+2 Ab [Presence] in Serum or Plasma by Immunoassay HIV 1/2 COMBO WITH REFLEX TO DIFFERENTIATION Lab Routine Encounter for supervision of high risk in first trimester, antepartum (HCC) Expected: 10/28/2024, Expires: 01/27/2025 [facility] Comment on above: Expected: 10/28/2024 , Expires: 01/27/2025 Start: 10-28-2024 End: 10-28-2025 OBSTETRIC ULTRASOUND WHI OBSTETRIC ULTRASOUND WHI Anc Imaging Routine Encounter for supervision of high risk in first trimester, antepartum (HCC) Expected: 10/28/2024, Expires: 10/28/2025 [facility] Comment on above: Expected: 10/28/2024 , Expires: 10/28/2025 Start: 10-28-2024 End: 01-27-2025 RUBELLA IGG ANTIBODY RUBELLA IGG ANTIBODY Lab Routine Encounter for supervision of high risk in first trimester, antepartum (HCC) Expected: 10/28/2024, Expires: 01/27/2025 [facility] Comment on above: Expected: 10/28/2024 , Expires: 01/27/2025 Start: 10-28-2024 End: 01-27-2025 SYPHILIS TREPONEMAL W/REFLEX SYPHILIS TREPONEMAL W/REFLEX Lab Routine Encounter for supervision of high risk in first trimester, antepartum (HCC) Expected: 10/28/2024, Expires: 01/27/2025 [facility] Comment on above: Expected: 10/28/2024 , Expires: 01/27/2025 Start: 10-28-2024 End: 01-27-2025 TYPE + SCREEN TYPE + SCREEN Blood Bank Routine Encounter for supervision of high risk in first trimester, antepartum (HCC) Expected: 10/28/2024, Expires: 01/27/2025 [facility] Comment on above: Expected: 10/28/2024 , Expires: 01/27/2025 Start: 06-28-2024 Screening for malignant neoplasm of cervix Cervical Cancer Screening [facility] Start: 2024 HPV Vaccine (1 - 3-dose SCDM series) HPV Vaccine (1 - 3-dose SCDM series) [facility] Start: 03-01-2024 Covid-19 Vaccine (1 - 2024-25 season) Covid-19 Vaccine ( season) [facility] Start: 03-01-2024 Influenza vaccination Influenza Vacc ine (#1) [facility] Start: 2016 Hepatitis B Vaccine (1 of 3 - 19+ 3-dose series) Hepatitis B Vaccine (1 of 3 - 19+ 3-dose series) [facility] Start: 2016 Urine microalbumin profile DTaP,Tdap,Td Vaccine (1 - Tdap) [facility] Start: 2015 Anxiety Screening Anxiety Screening [facility] Start: 2015 [facility] Start: 2015 Hepatitis C screening Hepatitis C Sc reening [facility] Start: 2015 HIV screening HIV Screening [facility] Bacteria identified in Urine by Culture BACTERIAL CULTURE, URINE Microbiology Routine Encounter for supervision of high risk in first trimester, antepartum (HCC) 10/28/2024 10:18 AM EDT [facility] Chlamydia trachomatis+Neisseria gonorrhoeae DNA [Presence] in Unspecified specimen by TALITA with probe detection GONORRHEA/CHLAMYDIA NAAT Lab Routine Encounter for supervision of high risk in first trimester, antepartum ([facility]) Screen for STD (sexually transmitted disease) 10/28/2024 10:18 AM T [facility] PAP TEST PAP TEST Lab Rou whit Encounter for supervision of high risk in first trimester, antepartum ([facility]) Screening for cervical cancer 10/28/2024 10:18 AM T [facility] TRICHOMONAS VAGINALI S NAAT TRICHOMONAS VAGINALIS NAAT Lab Routine Encounter for supervision of high risk in first trimester, antepartum ([facility]) Screen for STD (sexually transmitted disease) 10/28/2024 10:18 AM T [facility] Immunizations Immunization Date Immunization Notes Care Provider Fa jens 03-17-2025 tetanus toxoid, redu leelee diphtheria toxoid, and acellular pertussis vaccine, adsorbed Yarely Brady MD Work Phone: [facility] Payers Date Payer Category Payer Self-pay 2019 Private Health Insurance [employer] [id number] 2019 Unknown [id number] 1997 Unknown [id number] Unknown [employer] Unknown [id number] Social History Date Type Detail Facility Female [facility] Work Phone: Tobacco smoking consumption unknown [facility] [facility]; [employer] [facility] Work Phone: Start: 10-28-2024 Tobacco smoking stat [facility] Never smoked tobacco [facility] Start: 10-28-2024 Tobacco use and exposure Smokeless tobacco non-user [facility] Start: 10-28-2024 End: 03-17-2025 Alcoholic beverage intake Lifetime non-drinker (finding) [facility] Start: 10-28-2024 End: 03-17-2025 History of Social function [facility] Start: 10-28-2024 End: 03-17-2025 Tobacco use panel [facility] Start: 06-16-2021 National Score (1-100), lower number is lower risk 73 [facility] Start: 09-15-2024 [facility] Start: 1995 Sex assigned at Not on file [facility] NEGATED: Highlighted row No Social History Information Available No Social History Information Available [employer] [facility]; [employer] [facility] Work Phone: Clinical Notes 10-28-2024 to 03-17-2025 [...] Yarely Brady MD documented in this encounter [facility] 03-17-2025 Progress note Formatting of t [...] V05.9, ICD10: Z23 TDAP Yarely Brady MD [facility] 03-17-2025 Note HNO ID: [id number] Author: CAROLYN ARMENDARIZ MA Service: ? Author Type: Funeral Limousine Driver Type: Progress Notes Filed: 03/17/2025 11:16 Note [...] severely ill: Yes Patient denies history of Guillain-[place] Syndrome (a severe paralytic illness): Yes Tdap Adacel injection was given without incident. See immunizations for details of immunizations administered today. VIS sheet provided: Yes Provider Yarely Brady MD was present in office at time of injection. Carolyn Armendariz MA [facility] 03-17-2025 History of Presen t illness [...] severely ill: Yes Patient denies history of Guillain-[place] Syndrome (a severe paralytic illness): Yes Tdap Adacel injection was given without incident. See immunizations for details of immunizations administered today. VIS sheet provided: Yes Provider Yarely Brady MD was present in office at time of injection. Carolyn Armendariz MA documented in this encounter [facility] 03-17-2025 Instructions Carolyn Armendariz MA - 03/17/2025 10:38 AM EDT SEQUENTIAL SCREENINGS The [facility] offers sequential screenings for women who [...] It will require an appointment with our metallurgy laboratory technician. This is not an ultrasound performed [...] the above symptoms, contact our office at [phone] and ask to speak with a nurse. After hours, you can call doctors registry at [phone] OR call [facility] at [phone] and ask to have the doctor linux consultant paged. If you consider this an emergency, dial 03-01- or go to your nearest emergency department. NEED HELP? Are you dealing with a violent or abusive relationship? Are you a victim of rape or sexual assult? Call [facility] ([place]) 24 hour Crisis Hotline: 887.352.2088 or 298-159-2651. MANUAL Your Guide to a Healthy manual is now on-line. Visit [email or web address] to download your free copy documented in this encounter [facility] 01-14-2025 Progress note Formatting of t [...] not needing meds now Tori Vega M.D. [facility] 01-14-2025 Miscellaneous Notes RR- VB No. [...] Tori Vega M.D. documented in this encounter [facility] 01-14-2025 Gayatri Cervantes MA - 01/14/2025 3:47 PM EDT SEQUENTIAL SCREENINGS The [facility] offers sequential screenings for women who [...] It will require an appointment with our metallurgy laboratory technician. This is not an ultrasound performed [...] the above symptoms, contact our office at [phone] and ask to speak with a nurse. After hours, you can call doctors registry at [phone] OR call [facility] at [phone] and ask to have the doctor linux consultant paged. If you consider this an emergency, dial 9-1-8 or go to your nearest emergency department. NEED HELP? Are you dealing with a violent or abusive relationship? Are you a victim of rape or sexual assult? Call [facility] [place] ([place]) 24 hour Crisis Hotline: 676.948.1884 or 232-502-3869. MANUAL Your Guide to a Healthy manual is now on-line. Visit [email or web address] to download your free copy documented in this encounter [facility] 12-10-2024 Telephone encounter Note MONIQUE paperwork completed and faxed back to employer. Patient notified. Primo Loyola MA [facility] 12-10-2024 Miscellaneous Notes MONIQUE paperwork completed and faxed back to employer. Patient notified. Primo Loyola MA Received [facility] paperwork. Primo Loyola MA documented in this encounter [facility] 12-01-2024 Telephone encounter Note Received [facility] paperwork. Primo Loyola MA [facility] 11-25-2024 Progress note Formatting of t [...] hirscheprung's and Oligo 12 weeks gestation of ([facility]) Declines anueploidy testing Will start ASA RTO 4 wks Needs to schedule early NT ultrasound Ophelia Orta MD [facility] 11-25-2024 Miscellaneous Notes DM-Pt doing well. [...] Ophelia Orta MD documented in this encounter [facility] 11-25-2024 Instructions Cindy Gomez MA - 11/25/2024 3:15 PM EDT SEQUENTIAL SCREENINGS The [facility] offers sequential screenings for women who [...] It will require an appointment with our metallurgy laboratory technician. This is not an ultrasound performed [...] the above symptoms, contact our office at [phone] and ask to speak with a nurse. After hours, you can call doctors registry at [phone] OR call [facility] at [phone] and ask to have the doctor linux consultant paged. If you consider this an emergency, dial 9-1-1 or go to your nearest emergency department. NEED HELP? Are you dealing with a violent or abusive relationship? Are you a victim of rape or sexual assult? Call [facility] ([facility] 24 hour Crisis Hotline: 557.373.5351 or 863-611-1370. MANUAL Your Guide to a Healthy manual is now on-line. Visit [email or web address] to download your free copy documented in this encounter [facility] 10-28-2024 Note HNO ID: [id number] Author: TRAVSI INMAN APRN.CUT OUT OPERATOR Service: ? Author Type: Nurse Practitioner Type: Progress Notes Filed: 10/28/2024 10:32 Note Text: Administrative Office Manager offered: Patient declines. INITIAL OB ASSESSMENT HPI: Robi is a 29 year old White here to establish Obstetrical Care. Patient's last menstrual period was 06/14/2021 (approximate). from OB Dating Form. was planned Complaints: No OB History Gravida2 Para2 Term2 Preterm0 AB0 Living1 SAB0 IAB0 Ectopic0 Multiple0 Live Births1 Comment: 2 vaginal deliveries -- at [facility] (Dr. Urena) Previous history: Prior : [...] Status:Partnering Partner: Name: Hal Age: 35 Occupation: Genomics Scientist Gender: Male PAST MEDICAL HISTORY Diagnosis Date [...] sensitive examination was (more content not included)... [facility] 10-28-2024 History of Presen t illness Narrative Administrative Office Manager offered: Patient declines. INITIAL OB ASSESSMENT HPI: Robi is a 29 year old White here to establish Obstetrical Care. Patient's last menstrual period was 06/14/2021 (approximate). from OB Dating Form. was planned Complaints: No OB History Gravida2 Para2 Term2 Preterm0 AB0 Living1 SAB0 IAB0 Ectopic0 Multiple0 Live Births1 Comment: 2 vaginal deliveries -- at [facility] (Dr. Urena) Previous history: Prior : [...] Status:Partnering Partner: Name: Hal Age: 35 Occupation: Genomics Scientist Gender: Male PAST MEDICAL HISTORY Diagnosis Date [...] discussed with the Patient or Patient's Authorized Test Engineering Manager. As applicable, any other physician, advance practice provider, medical student, or other health professional student that will be observing or involved in the sensitive examination for educational or training purposes was discussed with the Patient or Authorized Test Engineering Manager. The Patient or Authorized Test Engineering Manager has agreed to proceed with the sensitive [...] Your guide to a health and the Popcorn Candy Maker. Discussed hemoglobin electrophoresis. Patient: Declines Reviewed midwifery and bacteriologist food services that are available. 2) Screening: Hemoglobin [...] of High Risk in First Trimester, Antepartum ([facility]) - 10/28/2024 Comment: Care Checklist Vaccines: [] [...] (28-30 weeks): [] Consent [] Contraception [] Dissolver Operator [] TeamBirth handout Third trimester (36-40 weeks): [] GBS [] Presentation - [] Scheduled [] yes - Hibiclens, pre-op instructions, CBC, T&S ordered [] no [] H&P [] Preferences worksheet Nausea and Vomiting During ([facility]) - 10/28/2024 Comment: 10/28/24 Vitamin B6 doses reviewed. To notify if prescription is needed. Travis Inman APRN.CUT OUT OPERATOR History of Vacuum Extraction Assisted Delivery - 10/28/2024 Comment: October 28, 2024 With first delivery. See scanned documents. Travis Inman APRN.CUT OUT OPERATOR History of Episiotomy - 10/28/2024 Comment: October 28, 2024 Right mediolateral with first delivery. See scanned documents. Travis Inman APRN.CUT OUT OPERATOR History of Oligohydramnios - 10/28/2024 Comment: October 28, 2024 With first , resulting in induction. Travis Inman APRN.CUT OUT OPERATOR Follow up in 4 weeks or sooner prn. Plan for NT scan between 12w0d and 13w6d gestation. Travis Inman APRN.CUT OUT OPERATOR documented in this encounter [facility] 10-28-2024 Instructions Eli Jimenez MA - 10/28/2024 9:27 AM EDT Please select the following link to access the [facility] Your Guide to a Healthy . [email or web address] documented in this encounter [facility] Evaluation note Diagnosis Encounter for supervision [...] vomiting during (HCC) [facility] Diagnosis Encounter for supervision of high [...] hirscheprung's and Oligo [facility] Diagnosis Encounter for supervision of high risk in first trimester, antepartum (HCC)- Primary History of vacuum extraction assisted delivery Other postprocedural status History of abnormality in previous , currently , first trimester (HCC) 12 weeks gestation of ([facility]) state, incidental Encounter for anatomic survey (HCC)- Primary Encounter for anatomic survey 19 weeks gestation of ([facility]) state, incidental Supervision of high risk in second trimester (HCC)- Primary Unspecified high-risk 19 weeks gestation of ([facility]) state, incidental Nausea and vomiting during ([facility]) [facility] Diagnosis Encounter for supervision of high [...] needing meds now [facility] Diagnosis Encounter for supervision of high [...] unspecified single disease documented in this encounter [facility] Summary Purpose Family History No Family [...] section and content) DATE CREATED AUTHOR 02/04/2020 [facility] DATE CREATED AUTHOR AUTHOR'S ORGANIZ ATION 03/10/2022 [facility] DATE CREATED AUTHOR AUTHOR'S ORGANIZ ATION 03/18/2023 [facility] DATE CREATED AUTHOR AUTHOR'S ORGANIZ ATION 10/13/2024 [facility] DATE CREATED AUTHOR AUTHOR'S ORGANIZ ATION 05/07/2025 [facility] Source Comments (unrecognize d section and content) In the event this informatio n is protected by the Federal Confidentiality of Alcohol and Drug Abuse Patient Records regulations: The Federal rules restrict any use of the information to criminally investigate or prosecute any alcohol or drug abuse patient.[facility] the event this information is protected by the Federal Confidentiality of Alcohol and Drug Abuse Patient Records regulations: The Federal rules restrict any use of the information to criminally investigate or prosecute any alcohol or drug abuse patient.[facility] the event this information is protected by the Federal Confidentiality of Alcohol and Drug Abuse Patient Records regulations: The Federal rules restrict any use of the information to criminally investigate or prosecute any alcohol or drug abuse patient.[facility] the event this information is protected by the Federal Confidentiality of Alcohol and Drug Abuse Patient Records regulations: The Federal rules restrict any use of the information to criminally investigate or prosecute any alcohol or drug abuse patient.[facility] the event this information is protected by the Federal Confidentiality of Alcohol and Drug Abuse Patient Records regulations: The Federal rules restrict any use of the information to criminally investigate or prosecute any alcohol or drug abuse patient.[facility] the event this information is protected by the Federal Confidentiality of Alcohol and Drug Abuse Patient Records regulations: The Federal rules restrict any use of the information to criminally investigate or prosecute any alcohol or drug abuse patient.[facility] the event this information is protected by the Federal Confidentiality of Alcohol and Drug Abuse Patient Records regulations: The Federal rules restrict any use of the information to criminally investigate or prosecute any alcohol or drug abuse patient.[facility] Reason for Visit (unrecogniz ed section and content) Reason Comments Initial OB Visit Reason Onset Date Comments Care 11/25/2024 Reason Comments FMLA Paperwork Reason Comments US Specialty Diagnoses / Procedures Referred By Bridger t Referred To Contact [facility] Diagnoses Encounter for supervision of high risk in first trimester, antepartum (HCC) Procedures OBSTETRIC ULTRASOUND WHI US PREG UTERUS AFTER 1ST TRIMEST GESTATION Travis Inman APRN.CUT OUT OPERATOR [address] [place] [place] [address] Phone: tel: fax: [facility] [address] [place] [address] Referral ID Status Reason Start Date Expiration Date V isits Requested Visits Authorized [id number] Closed Auto-Generate d Referral 10/28/2024 10/28/2025 1 [...] BE BASED ON THE PRIMARY CLINICAL RECORDS. [facility] [employer] [facility]. provides no warranty or guarantee of the accuracy or completeness of information in this document.
[2025-05-30 01:45] LABS: Syphilis Antibodies Nonreactive (Nonreactive)
[2025-05-30] MEDS: Lactated Ringers 1,000 ML 200 ML IV (02:00)
[2025-05-30] MEDS: fentaNYL-bupivacaine (epidural) 100 ML BAG EPIDURAL (02:21)
[2025-05-30] MEDS: Lactated Ringers 1,000 ML 1000 ML IV (04:26)
[2025-05-30] MEDS: Lidocaine 2% (5ml sdv) 5 ML VIAL.MPF 20 ML EPIDURAL (04:30)
[2025-05-30] MEDS: Cefazolin 1 GM/50 ML BAG IV ×3 (05:00→19:46)
[2025-05-30] MEDS: Cefazolin 1 GM/5 ML Vial 2 GM IV (05:02)
[2025-05-30] MEDS: Midazolam 2 MG/2 ML Syringe 1 MG IV (05:14)
--- NOTE | 2025-05-30 05:27 | HP.PCM.OB_ITS ---
HPI - General General Date of Admission: 05/30/25 Date of Service: 05/30/25 Chief Complaint: ROM HPI Narrative ROBI MASTERS, is a 30 F who presents with SROM. Meconium noted on admission. 3 cm. Robles but not feeling them. Desires epidural. Maternal Data Information Final ANNE MARIE: 06[birth year] Gestational age: 38+5 [facility] Medical History Home Medications Medication Instructions Recorded Last Taken Type vits,calcium no.78-iron 1 tab PO DAILY Check with primary 08/09/16 05/30/25 History fumarate-folic acid 29 mg-1 mg doctor tablet (Prenatabs FA) ferrous sulfate 325 mg (65 mg 325 mg PO QDAY 05/30/25 05/30/25 History iron) tablet (Iron (ferrous sulfate)) Allergy/AdvReac Type Severity Reaction Status Date / Time No Known Allergies Allergy Verified 05/30/25 00:18 Social History household members: spouse and children Smoking Status: Never smoker substance use type: does not use History 3 Elective abortions Hx Para 2 Spontaneous abortions Hx # Term Pregnancies Ectopic pregnancies Hx # Pregnancies Multiple births # of living children NST FHR Rate Baby A Baseline: 120 Variability:: Moderate Accelerations:: 15 x 15 Decelerations:: None NST Reactive:: Yes Uterine Activity:: q5 ROS Constitutional Constitutional: Denies fatigue, fever(s) or malaise Eyes Eyes: Denies change in vision ENT HEENT: Denies dizziness or headache(s) Cardiovascular Cardiovascular: Denies chest pain, dyspnea or lightheadedness Respiratory/Chest Respiratory/Chest: Denies cough or dyspnea Gastrointestinal Gastrointestinal: Denies change in bowel habits Genitourinary Genitourinary: Denies burning urination or genital lesions Integumentary Integumentary: Denies rash Neurologic Neurologic: Denies confusion, dizziness, headache(s), numbness or weakness Vital Signs Vital Signs Vital Signs: 05/30/25 00:12 05/30/25 00:12 05/30/25 00:12 Temperature 98.5 F Temperature Source Temporal Pulse Rate Respiratory Rate 16 Blood Pressure BP Systolic BP Diastolic Pulse Ox 05/30/25 00:16 05/30/25 00:16 05/30/25 01:32 Temperature Temperature Source Temporal Pulse Rate 61 Respiratory Rate Blood Pressure 134/79 H BP Systolic 134 BP Diastolic 79 Pulse Ox 05/30/25 01:32 05/30/25 01:32 05/30/25 01:33 Temperature 97.6 F L Temperature Source Pulse Rate Respiratory Rate 16 Blood Pressure 128/86 H BP Systolic 128 BP Diastolic 86 Pulse Ox 05/30/25 01:33 05/30/25 01:34 05/30/25 01:34 Temperature Temperature Source Pulse Rate 64 67 Respiratory Rate Blood Pressure BP Systolic BP Diastolic Pulse Ox 98 05/30/25 01:51 05/30/25 01:51 05/30/25 01:51 Temperature Temperature Source Pulse Rate 67 Respiratory Rate Blood Pressure 164/88 H BP Systolic 164 BP Diastolic 88 Pulse Ox 100 05/30/25 01:51 05/30/25 01:52 05/30/25 01:52 Temperature Temperature Source Pulse Rate 77 Respiratory Rate 16 Blood Pressure 149/97 H BP Systolic 149 BP Diastolic 97 Pulse Ox 05/30/25 01:52 05/30/25 01:56 05/30/25 01:56 Temperature Temperature Source Pulse Rate 62 Respiratory Rate 18 Blood Pressure 129/85 H BP Systolic 129 BP Diastolic 85 Pulse Ox 05/30/25 01:56 05/30/25 01:56 05/30/25 01:57 Temperature Temperature Source Pulse Rate Respiratory Rate 16 Blood Pressure 122/80 H BP Systolic 122 BP Diastolic 80 Pulse Ox 99 05/30/25 01:57 05/30/25 02:00 05/30/25 02:00 Temperature Temperature Source Pulse Rate 59 L 61 Respiratory Rate Blood Pressure 125/78 H BP Systolic 125 BP Diastolic 78 Pulse Ox 05/30/25 02:01 05/30/25 02:01 05/30/25 02:05 Temperature Temperature Source Pulse Rate 73 57 L Respiratory Rate Blood Pressure BP Systolic BP Diastolic Pulse Ox 100 05/30/25 02:05 05/30/25 02:06 05/30/25 02:06 Temperature Temperature Source Pulse Rate 61 Respiratory Rate Blood Pressure BP Systolic BP Diastolic Pulse Ox 87 82 05/30/25 02:06 05/30/25 02:06 05/30/25 02:06 Temperature Temperature Source Pulse Rate 67 Respiratory Rate 16 Blood Pressure 133/81 H BP Systolic 133 BP Diastolic 81 Pulse Ox 11/30/25 02:10 05/30/25 02:10 05/30/25 02:10 Temperature Temperature Source Pulse Rate 61 Respiratory Rate 16 Blood Pressure 125/76 H BP Systolic 125 BP Diastolic 76 Pulse Ox 05/30/25 02:11 05/30/25 02:11 05/30/25 02:15 Temperature Temperature Source Pulse Rate 63 Respiratory Rate Blood Pressure 123/71 H BP Systolic 123 BP Diastolic 71 Pulse Ox 100 05/30/25 02:15 05/30/25 02:16 05/30/25 02:16 Temperature Temperature Source Pulse Rate 65 62 Respiratory Rate Blood Pressure BP Systolic BP Diastolic Pulse Ox 100 05/30/25 02:16 05/30/25 02:16 05/30/25 02:21 Temperature Temperature Source Pulse Rate 73 Respiratory Rate Blood Pressure 145/64 H BP Systolic 145 BP Diastolic 64 Pulse Ox 87 05/30/25 02:21 05/30/25 02:21 05/30/25 02:26 Temperature Temperature Source Pulse Rate 64 Respiratory Rate Blood Pressure 132/72 H BP Systolic 132 BP Diastolic 72 Pulse Ox 100 05/30/25 02:26 05/30/25 02:31 05/30/25 02:31 Temperature Temperature Source Pulse Rate 63 60 Respiratory Rate Blood Pressure 129/61 H BP Systolic 129 BP Diastolic 61 Pulse Ox 05/30/25 02:35 05/30/25 02:35 05/30/25 02:41 Temperature Temperature Source Pulse Rate 59 L Respiratory Rate Blood Pressure 113/64 127/63 H BP Systolic 113 127 BP Diastolic 64 63 Pulse Ox 05/30/25 02:41 05/30/25 02:46 05/30/25 02:46 Temperature Temperature Source Pulse Rate 58 L 59 L Respiratory Rate Blood Pressure 114/63 BP Systolic 114 BP Diastolic 63 Pulse Ox 05/30/25 02:48 05/30/25 02:48 05/30/25 02:48 Temperature 97.6 F L Temperature Source Temporal Pulse Rate Respiratory Rate 16 Blood Pressure BP Systolic BP Diastolic Pulse Ox 05/30/25 03:36 05/30/25 03:36 05/30/25 03:36 Temperature 98.0 F Temperature Source Temporal Pulse Rate Respiratory Rate 16 Blood Pressure BP Systolic BP Diastolic Pulse Ox 05/30/25 03:37 05/30/25 03:37 05/30/25 03:37 Temperature Temperature Source Pulse Rate 64 Respiratory Rate Blood Pressure 92/52 L BP Systolic 92 BP Diastolic 52 Pulse Ox 97 05/30/25 03:38 05/30/25 04:16 05/30/25 04:16 Temperature Temperature Source Pulse Rate 66 Respiratory Rate Blood Pressure BP Systolic BP Diastolic Pulse Ox 79 96 05/30/25 04:21 05/30/25 04:21 Temperature Temperature Source Pulse Rate 68 Respiratory Rate Blood Pressure BP Systolic BP Diastolic Pulse Ox 100 Weight Weight: 54.885 kg Body Mass Index (BMI) 23.6 PRE- weight 50.802 kg PRE- Body Mass Index 21.9 (BMI) Physical Exam Const alert and no apparent distress General Appearance: cooperative HEENT normocephalic Resp normal respiratory effort Cardio regular rate GI soft to palpation GI Narrative: gravid, nontender, appropriate for gestational age Extremity no calf tenderness General Extremity: edema Skin no wounds Rashes: No rashes noted Psych activity/motor behavior normal Labs Labs Labs: Blood Type O POSITIVE Antibody Screen NEGATIVE Hct, (37-47) 34.2 % L Hgb, (12.0-15.0) 11.2 g/dL L Syphilis Total Ab, (Nonreactive) Nonreactive Rubella IgG Antibody 207.4 IU/mL Hep Bs Antigen, (Nonreactive) Non-Reactive Hepatitis C Antibody, (Nonreactive) Non-Reactive HIV 1&2 Antibody, (Nonreactive) Non-Reactive Glucose 1 Hr 50 gm, (70-140) 171 mg/dL H Gest Glucose Tolerance MG/DL Group B Strep DNA, (Negative) Negative Rhogam given: No Miscellaneous Test Assessment & Plan (1) Rupture of membranes with meconium present: (2) 38 weeks gestation of : PLAN: Plan Admit for labor ROM of membranes Epidural prn Pitocin prn
--- NOTE | 2025-05-30 05:30 | RAD_ITS ---
PROCEDURE: PELVIS 1 OR 2 VIEWS 05/30/2025 REASON FOR EXAM: EMERGENT SURGERY Instrument count. TECHNIQUE: Procedure Code: RADPEL Modality: DX Procedure: PELVIS 1 OR 2 VIEWS COMPARISON: None. FINDINGS: CR pelvis/hips: Bones: Bony pelvis intact with no fractures. Right proximal femur negative. Left proximal femur negative. Joints: Degenerative changes of the hips and pelvis. Soft tissues: uterus noted. No radiopaque foreign bodies in the pelvis. Mild increased stool in the colon. Negative for vascular calcifications abdominal aortic branches. Adjacent soft tissues negative. Other: Remainder of exam negative. RAD/Pelvis 1 or 2 Views IMPRESSION: Negative pelvis Negative for radiopaque foreign body or evidence of surgical instrument. Mild constipation. Reading Location: [id number]
--- NOTE | 2025-05-30 05:34 | EX.PCM.OBRPT ---
Assessment & Plan (1) 38 weeks gestation of : (2) Rupture of membranes with meconium present: (3) bradycardia affecting management of mother, delivered: Maternal Data Information Final ANNE MARIE: [birth year] Gestational age: 38+5 Operative Report (OB) Procedure Details Date of Procedure: 05/30/25 Procedure Start Time: 04:32 Procedure Stop Time: 05:14 Time of Delivery: 04:33 Pre-Operative Diagnosis: Distress Post-Operative Diagnosis: Same as Pre-operative diagnosis Classification: Stat Type of Anesthesia: Epidural Antibiotic Given: Ancef 2 grams IV x1 Drain: Martinez to straight drain Estimated Blood Loss: 500 cc Findings Description of surgery: Patient laboring spontaneously after SROM. Sudden change in heart rate from Cat I with baseline of 120 to Cat 3 with bradycardia. Confirmed by FSE. 5 cm at that time. Maternal position changes did not improve FHR and LIANNA was called. I confirmed FHR for 50s in the OR and proceeded with STAT section. Epidural was dosed for . A Martinez catheter was placed. Betadine was splashed and the drape placed. With adequate anaesthesia a Pfannenstiel incision was made and carried down to the underlying fascia. The fascia was incised in the midline and extended laterally. The muscles divided in the midline. The peritoneum was entered bluntly and extended manually. A bladder blade was placed. A low transverse incision was made and extended bluntly. The head was elevated to the incision. The shoulders delivered easily. The cord was cut and clamped and passed to the pediatric team. The placenta was delivered with little effort. The uterus was exteriorized and cleared of all clot and debris. The incision was repaired with 1-0 Vicryl x 2. Additional figure of eight needed on the right end of the incision for hemostasis. The uterus was returned the abdomen. The gutters were cleared of all clots. The peritoneum was closed with 2-0 Monocryl. The fascia was closed with 1-0 Vicryl. The subcutaneous tissue was reapproximated with 2-0 Monocryl The skin was closed with 4-0. I performed the major parts of the procedure with the RFNA assisting with retraction and closing the skin. The sponge lap and needle count was correct x 2 Surgical findings: Meconium fluid Presentation: Vertex and ROP Amniotic Membrane Rupture Type: Spontaneous Amniotic Fluid Description: Lightly stained meconium Placental Delivery Description: Spontaneous Placenta Disposition: Sent to Pathology Specimen collected: Yes Description of specimen(s) removed: placenta Cord Vessel Description: 3 Vessels Cord Entanglement: None Cord Gases: ABG and VBG A gender: Male (1 minute): 2 (5 minute): 4 (6,7) Delayed Cord Clamping: No Mobile Home Installer application designer: Yes Supervisor Customer Complaint Service: Rose Cherry Tasks completed by psychologist research assistant: Closing and Retracting Additional insurance legal assistant?: Yes Additional Manager Php #2: [email or web address] [email or web address] Tasks completed by insurance legal assistant #2: Opening and Retracting Complications Complications: No
[2025-05-30] MEDS: morphine PF (epidural) 5 MG/10 ML Vial 2.5 MG IV (05:45)
[2025-05-30] MEDS: Oxytocin 15 Units/NS 250ml 15 UNITS/250 ML IV.SOLN 83 UNITS IV (06:00)
[2025-05-30] MEDS: Lactated Ringers 1,000 ML 100 ML IV (06:46)
[2025-05-30] MEDS: Ketorolac 30 MG/ML Syringe IV ×4 (06:51→23:59)
[2025-05-30] MEDS: 0.9% Saline Lock 10 ML Syringe IV ×3 (13:17→23:59)
[2025-05-31 01:50] VITALS: PULSE 69; RESP 16; O2SAT 98
[2025-05-31 03:56] VITALS: BP 115/78; PULSE 58; RESP 16; TEMP 36.4; O2SAT 100
[2025-05-31] MEDS: Cefazolin 1 GM/50 ML BAG IV (04:00)
[2025-05-31 06:01] LABS: Hematocrit 27.1 % (37-47); Hemoglobin 8.6 g/dL (12.0-15.0); Mean Corp Hgb Conc 31.7 g/dL (32-36); Mean Corpuscular Volume 86.3 fL (81-99); Mean Platelet Vol. 10.8 fl (6.2-12.0); Platelet Count 169 K/mm3 (150-450); RBC Distribution Width CV 13.3 % (11.6-14.6); RBC Distribution Width SD 41.3 fl (35.1-43.9); Red Blood Count 3.14 M/mm3 (4.2-5.4); White Blood Count 7.2 K/mm3 (4.4-11.0)
--- NOTE | 2025-05-31 06:53 | PN.OBGYN_ITS ---
Subjective Subjective Doing well. Ambulating and voiding without difficulty. Mild lochia. Breast feeding. Baby in SCN Objective Data Objective Data Vital Signs: Vital Signs Temp Pulse Resp BP Pulse Ox O2 Del Method 97.6 F L 58 L 16 115/78 100 Room Air 05/31/25 03:56 05/31/25 03:56 05/31/25 03:56 05/31/25 03:56 05/31/25 03:56 05/31/25 03:56 Oxygen Delivery Method Room Air Weight: 54.885 kg Body Mass Index (BMI) 23.6 Intake & Output: Intake and Output for Last 24 Hours 05/29/25 05/30/25 05/31/25 23:59 23:59 23:59 Intake Total 2768 / 2768 50 / 50 Output Total 1999 Balance 768 / 768 50 / 50 Lab / Micro Data 05/31/25 05:54 Labs: Laboratory Results - last 24 hr 05/31/25 05:54: WBC 7.2, RBC 3.14 L, Hgb 8.6 L, Hct 27.1 L, MCV 86.3, MCH 27.4, MCHC 31.7 L, RDW Std Deviation 41.3, RDW Coeff of Jose G 13.3, Plt Count 169, MPV 10.8 Radiography Diagnostic Testing: Radiology Impression Pelvis X-Ray 05/30/25 05:30 IMPRESSION: Negative pelvis Negative for radiopaque foreign body or evidence of surgical instrument. Mild constipation. Reading Location: [facility] Constitutional Constitutional: Denies headache(s) Cardiovascular Cardiovascular: Denies chest pain or dyspnea Gastrointestinal Gastrointestinal: Denies nausea or vomiting Genitourinary Genitourinary: Denies dysuria Physical Exam Const alert, oriented x3 and no apparent distress General Appearance: cooperative and comfortable Eyes PERRL and EOMs intact bilaterally Resp normal respiratory effort GI soft to palpation and non-tender GI Narrative: soft, moderate distention, fundus firm, appropriately tender. Abdominal bandage clean dry and intact Uterus Palpation: uterus fundus firm ( below umbilicus) Extremity normal to inspection and full ROM Neuro oriented x3 and CN's II-XII intact bilaterally Psych mental status grossly normal Assessment & Plan (1) bradycardia affecting management of mother, delivered: (2) COVID-19: (3) S/P : PLAN: Plan Possible discharge tomorrow
[2025-05-31] MEDS: Senna/Docusate Sodium 1 Tablet PO (12:02)
[2025-05-31 14:00] VITALS: BP 124/75; PULSE 65; RESP 16; TEMP 36.6; O2SAT 100
[2025-05-31 19:40] VITALS: BP 125/83; PULSE 71; RESP 16; TEMP 36.8; O2SAT 99
[2025-06-01 02:16] VITALS: BP 134/77; PULSE 82; RESP 16; TEMP 36.6; O2SAT 98
[2025-06-01 08:45] VITALS: BP 109/82; PULSE 84; RESP 16; TEMP 36.7; O2SAT 99
--- NOTE | 2025-06-01 11:32 | PCM.PN.OB ---
Subjective Subjective Doing well per patient and nursing staff. Ambulating and taking PO without difficulty. Voiding and passing flatus. Pain controlled. , services for assistance. Denies headache, visual changes, chest pain, shortness of breath, leg pain or increased bleeding. Lochia normal. Objective Data Objective Data Vital Signs: Vital Signs Temp Pulse Resp BP Pulse Ox O2 Del Method 98.1 F 84 16 109/82 H 99 Room Air 06/01/25 08:45 06/01/25 08:45 06/01/25 08:45 06/01/25 08:45 06/01/25 08:45 06/01/25 08:45 Oxygen Delivery Method Room Air Weight: 121 lb Body Mass Index (BMI) 23.6 Intake & Output: Intake and Output for Last 24 Hours 05/30/25 05/31/25 06/01/25 23:59 23:59 23:59 Intake Total 7278 / 2768 50 / 50 Output Total 1999 Balance 768 / 768 50 / 50 Lab / Micro Data 05/31/25 05:54 ROS Constitutional Constitutional: Reports systems reviewed and no addt'l complaints, except as documented; Denies headache(s) Eyes Eyes: Denies acute decrease in peripheral vision, blurry vision or change in vision ENT HEENT: Reports systems reviewed and no addt'l complaints, except as documented Cardiovascular Cardiovascular: Denies chest pain or dizziness Respiratory/Chest Respiratory/Chest: Denies cough, dyspnea, dyspnea on exertion, shortness of breath at rest or shortness of breath with exertion Gastrointestinal Gastrointestinal: Denies abdominal pain, diarrhea, nausea or vomiting Genitourinary Genitourinary: Denies abdominal discomfort Musculoskeletal Musculoskeletal: Denies limited range of motion Integumentary Integumentary: Reports systems reviewed and no addt'l complaints, except as documented Neurologic Neurologic: Reports systems reviewed and no addt'l complaints, except as documented Psychiatric Psychiatric: Reports systems reviewed and no addt'l complaints, except as documented Endocrine Endocrinology: Reports systems reviewed and no addt'l complaints, except as documented Hematologic/Lymphatic Hematologic/Lymphatic: Reports systems reviewed and no addt'l complaints, except as documented Allergic/Immunologic Allergic/Immunologic: Reports systems reviewed and no addt'l complaints, except as documented Physical Exam Const alert and oriented x3 General Appearance: cooperative Orientation / Consciousness: awake, oriented to person, oriented to place and oriented to time Exam Limitations: no limitations HEENT normocephalic Head and Scalp: normal to inspection, normocephalic and atraumatic Face and Sinus: normal facial exam Eyes General Eye: normal appearance of both eyes Neck full ROM Chest Chest: symmetrical chest wall rise Resp normal respiratory effort and normal air movement Auscultation: clear to auscultation bilaterally Cardio regular rate, regular rhythm, S1 normal heart sound, S2 normal heart sound, no murmurs, no rub, no gallops and no clicks GI normal to inspection, nondistended, normoactive bowel sounds and non-tender GI Narrative: Fundus firm 2 below U. Dressing dry and intact appearance of the vagina normal Narrative: Normal lochia rubra Bladder / Kidney Exam: no CVA tenderness Back/Spine normal ROM Extremity normal to inspection and full ROM Skin no rashes or lesions noted Neuro oriented x3, CN's II-XII intact bilaterally and moves all extremities Sensorium / Orientation: awake, alert and oriented to person Motor Exam: clonus absent Deep Tendon Reflexes: Rt Patellar (L4): 2+ and Lt Patellar (L4): 2+ Assessment & Plan (1) S/P : PLAN: Plan 1) Routine care, POD # 2) Vitals signs stable 3) Pain controlled 4) , services PRN 5) D/C home 6) Follow up in 1 week and 6 weeks
--- NOTE | 2025-06-01 11:34 | PCM.DC.SUM ---
Providers Date of Admission: 05/30/25 Primary Care Physician: CAROLINE Fleming Reason For Visit: C SECTION Diagnosis Discharge Diagnosis (1) S/P : Status: Acute Code(s): Z98.891 - History of uterine scar from previous surgery Plan 1) Routine care, POD # 2) Vitals signs stable 3) Pain controlled 4) , services PRN 5) D/C home 6) Follow up in 1 week and 6 weeks Medications at Discharge Home Medications vits,calcium no.78-iron fumarate-folic acid 29 mg-1 mg tablet (Prenatabs FA) 1 tab PO DAILY Check with primary doctor 08/09/16 ferrous sulfate 325 mg (65 mg iron) tablet (Iron (ferrous sulfate)) 325 mg PO QDAY 05/30/25 acetaminophen 500 mg tablet 1,000 mg (2 x 500 mg) PO Q6 #0 tabs 06/01/25 ibuprofen 600 mg tablet 600 mg PO Q6H #0 tabs 06/01/25 Hospital Course Summary of Care Provided Minutes Spent on Discharge: 15 Hospital Course: section on 05/30/25. Postoperative course uncomplicated. Post operative acute blood loss anemia. D/C home on postoperative day #2 Weight / BMI Weight Weight: 121 lb Body Mass Index (BMI) 23.6 PRE- weight 112 lb PRE- Body Mass Index 21.9 (BMI) ABG / Lab / Microbiology Data 05/31/25 05:54 D/C Instructions DC O2, CPAP, BIPAP Needs Home O2 Discharge instructions: No Meaningful Use Info Meaningful Use Meaningful Use Diagnoses (Choose all that apply): None applicable Discharge Plan Admission Admit Date/Time: 05/30/25 00:40 Primary Reason for Your Visit: section. Anemia Attending Provider: Yarely Brady Primary Care Provider: Cheryl Zendejas Discharge Orders/Prescriptions Prescriptions: New acetaminophen 500 mg Tablet 1,000 mg PO Q6 Qty: 0 0RF ibuprofen 600 mg Tablet 600 mg PO Q6H Qty: 0 0RF Continued Prenatabs FA 1 TABLET tablet 1 tab PO DAILY ferrous sulfate [Iron (ferrous sulfate)] 325 mg (65 mg iron) tablet 325 mg PO QDAY Referrals / Follow Up: Yarely Brday MD [Med Staff - Active Staff, Obstetrics-Gynecology (OBGYN)] Disposition Disposition (needs filled in before D/C Order can be placed): Home, Self Care
[2025-06-01] MEDS: Senna/Docusate Sodium 1 Tablet PO (12:26)
[2025-06-01 12:56] VITALS: BP 121/83; PULSE 81; RESP 16; TEMP 36.8; O2SAT 100
== END 2025-06-01 14:15 | disposition home or self-care (01) | DRG 786 ==
LOC: WP 01:19
PROVIDERS: Admitting Provider Obstetrics & Gynecology; Referring Provider Obstetrics & Gynecology; Visit Provider Obstetrics & Gynecology
DX: O76 Abnormality in fetal heart rate and rhythm complicating labor and delivery (principal); U07.1 COVID-19; D62 Acute posthemorrhagic anemia; O98.52 Other viral diseases complicating childbirth; Z3A.38 38 weeks gestation of pregnancy; O77.0 Labor and delivery complicated by meconium in amniotic fluid; O90.81 Anemia of the puerperium; Z37.0 Single live birth
CPT/HCPCS: 59050; 72170; 84112; 85025; 85027; 86780; 86850; 86900; 86901; 99221; A4216; G0378; J2405